=== PATIENT | female | born 1995 | race African-American/Black ===

== ENCOUNTER 2016-03-15 11:43 | Emergency (ER) | payer SELFPAY ==
[2016-03-15 14:15] LABS: APPEARANCE,URINE CLEAR; BILIRUBIN,URINE NEGATIVE (NEGATIVE); GLUCOSE, URINE NEGATIVE (NEGATIVE); KETONES,URINE NEGATIVE (NEGATIVE); LEUKOCYTE ESTERASE,URINE NEGATIVE (NEGATIVE); NITRITE,URINE NEGATIVE (NEGATIVE); PROTEIN,URINE NEGATIVE (NEGATIVE); URINE SPECIFIC GRAVITY 1.021; UROBILINOGEN,URINE NEGATIVE mg/dL (<2.0)
[2016-03-15] MEDS ORDERED: PREDNISONE 20 MG TABLET PO ONE (14:37)
--- NOTE | 2016-03-15 15:55 | ER Document Report ---
ED General - General Chief Complaint: Sore Throat Stated Complaint: SORE THROAT TRAVEL OUTSIDE OF THE [place] IN LAST 30 DAYS: No - HPI Patient complains to provider of: sore throat vaginal discharge Notes: Patient coming in with sore throat vaginal discharge lower [place] pain ongoing for the last 34 days. Patient states she is 59 active in a monogamous relationship. Patient denies fevers chills nausea vomiting diarrhea. Patient states recently diagnosed with endometriosis. Patient denies any urinary symptoms. - Related Data Allergies/Adverse Reactions: ciprofloxacin [From Cipro] Allergy (Verified 03/15/16 12:23) Hives ciprofloxacin HCl [From Cipro] Allergy (Verified 03/15/16 12:23) Hives metoclopramide HCl [From Reglan] Allergy (Verified 03/15/16 12:23) anxious prochlorperazine edisylate [From Compazine] Allergy (Verified 03/15/16 12:23) prochlorperazine maleate [From Compazine] Allergy (Verified 03/15/16 12:23) Past Medical History - Social History Smoking Status: Unknown if Ever Smoked Chew tobacco use (# tins/day): No Frequency of alcohol use: None Drug Abuse: None Family History: CAD - mother, enlarged heart, CVA, DM, Hyperlipidemia, Hypertension - mother, Other - p. aunt recently passed from [place] at 45 years old, father with kidney problems Patient has suicidal ideation: No Patient has homicidal ideation: No - Past Medical History Cardiac Medical History: Denies: Hx Heart Attack, Hx Hypertension Pulmonary Medical History: Reports: Hx Asthma - ON INHALER, USES ABOUT ONCE A MONTH Neurological Medical History: Reports: Hx Migraine. Denies: Hx Cerebrovascular Accident, Hx Seizures Renal/ Medical History: Reports: Hx Ovarian Cysts. Denies: Hx Ectopic , Hx Peritoneal Dialysis, Hx Pelvic Inflammatory Disease GI Medical History: Denies: Hx Hepatitis, Hx Hiatal Hernia, Hx Ulcer Infectious Medical History: Denies: Hx Hepatitis Past Surgical History: Reports: Hx Gynecologic Surgery - Laparoscopic surgery for diagnosis of endometriosis. Denies: Hx Hysterectomy, Hx Mastectomy, Hx Open Heart Surgery, Hx Pacemaker - Immunizations Immunizations up to date: Yes Hx Diphtheria, Pertussis, Tetanus Vaccination: Yes Review of Systems - Review of Systems Constitutional: No symptoms reported EENT: Throat pain Cardiovascular: No symptoms reported Respiratory: No symptoms reported Gastrointestinal: No symptoms reported Genitourinary: No symptoms reported Female Genitourinary: Vaginal discharge Musculoskeletal: No symptoms reported Skin: No symptoms reported Hematologic/Lymphatic: No symptoms reported Neurological/Psychological: No symptoms reported -: Yes All other systems reviewed and negative Physical Exam - Vital signs Vitals: Temp Pulse Resp BP Pulse Ox 98.4 F 81 14 116/68 98 03/15/16 11:51 03/15/16 11:51 03/15/16 11:51 03/15/16 11:51 03/15/16 11:51 Interpretation: Normal - General General appearance: Appears well, Alert - HEENT Head: Normocephalic, Atraumatic Eyes: Normal Pupils: PERRL - Respiratory Respiratory status: No respiratory distress Chest status: Nontender Breath sounds: Normal Chest palpation: Normal - Cardiovascular Rhythm: Regular Heart sounds: Normal auscultation Murmur: No - Abdominal Inspection: Normal Distension: No distension Bowel sounds: Normal Tenderness: Nontender Organomegaly: No organomegaly - Genitourinary External exam: Normal Speculum exam: Vaginal discharge - Mild white discharge Bimanuel exam: Normal - Back Back: Normal, Nontender - Extremities General upper extremity: Normal inspection, Nontender, Normal color, Normal ROM , Normal temperature General lower extremity: Normal inspection, Nontender, Normal color, Normal ROM , Normal temperature, Normal weight bearing. No: Dasia's sign - Neurological Neuro grossly intact: Yes Cognition: Normal Orientation: AAOx4 Deyvi Coma Scale Eye Opening: Spontaneous [place] Coma Scale Verbal: Oriented [place] Coma Scale Motor: Obeys Commands [place] Coma Scale Total: 15 Speech: Normal Motor strength normal: LUE, RUE, LLE, RLE Sensory: Normal - Psychological Associated symptoms: Normal affect, Normal mood - Skin Skin Temperature: Warm Skin Moisture: Dry Skin Color: Normal Course - Re-evaluation Re-evalutation: 03/15/16 15:56 Patient's laboratory studies showed signs of bacterial vaginosis. Otherwise lab work negative for signs of infection discussed treatment for gonorrhea and Chlamydia patient states she would rather wait for results to return no treatment for gonorrhea and Chlamydia was given to the patient. Patient will be discharged home with [facility] told to follow-up her primary care physician Strep is negative patient will be treated with steroids - Vital Signs Vital signs: Temp Pulse Resp BP Pulse Ox 98.4 F 81 14 116/68 98 03/15/16 11:51 03/15/16 11:51 03/15/16 11:51 03/15/16 11:51 03/15/16 11:51 Discharge - Discharge Clinical Impression: Sore throat, BV (bacterial vaginosis) Condition: Good Disposition: HOME, SELF-CARE Instructions: Sore Throat ([facility]), Vaginosis, Bacterial ([facility]), Abdominal Pain ( [facility]) Additional Instructions: Please take medications as prescribed. Please follow-up with your MEMBERSHIP COUNSELOR or primary care physician. Return to the ER symptoms worsen. You may take Tylenol and Motrin for your pain. Prescriptions: Ibuprofen [Motrin 600 Mg Tablet] 600 mg PO TID #30 tablet Metronidazole [Metrogel 0.75% Vaginal Gel] 1 applic PV DAILY 5 Days Forms: Return to Work
[2016-03-15 16:08] LABS: CHLAM PCR NOT DETECTED (NOT DETECT)
--- NOTE | 2016-03-15 16:08 | ER Document Report ---
ED General - General Chief Complaint: Sore Throat Stated Complaint: SORE THROAT TRAVEL OUTSIDE OF THE [place] IN LAST 30 DAYS: No - Related Data Allergies/Adverse Reactions: ciprofloxacin [From Cipro] Allergy (Verified 03/15/16 12:23) Hives ciprofloxacin HCl [From Cipro] Allergy (Verified 03/15/16 12:23) Hives metoclopramide HCl [From Reglan] Allergy (Verified 03/15/16 12:23) anxious prochlorperazine edisylate [From Compazine] Allergy (Verified 03/15/16 12:23) prochlorperazine maleate [From Compazine] Allergy (Verified 03/15/16 12:23) Past Medical History - Social History Smoking Status: Unknown if Ever Smoked Chew tobacco use (# tins/day): No Frequency of alcohol use: None Drug Abuse: None Family History: CAD - mother, enlarged heart, CVA, DM, Hyperlipidemia, Hypertension - mother, Other - p. aunt recently passed from [place] at 45 years old, father with kidney problems Patient has suicidal ideation: No Patient has homicidal ideation: No - Past Medical History Cardiac Medical History: Denies: Hx Heart Attack, Hx Hypertension Pulmonary Medical History: Reports: Hx Asthma - ON INHALER, USES ABOUT ONCE A MONTH Neurological Medical History: Reports: Hx Migraine. Denies: Hx Cerebrovascular Accident, Hx Seizures Renal/ Medical History: Reports: Hx Ovarian Cysts. Denies: Hx Ectopic , Hx Peritoneal Dialysis, Hx Pelvic Inflammatory Disease GI Medical History: Denies: Hx Hepatitis, Hx Hiatal Hernia, Hx Ulcer Infectious Medical History: Denies: Hx Hepatitis Past Surgical History: Reports: Hx Gynecologic Surgery - Laparoscopic surgery for diagnosis of endometriosis. Denies: Hx Hysterectomy, Hx Mastectomy, Hx Open Heart Surgery, Hx Pacemaker - Immunizations Immunizations up to date: Yes Hx Diphtheria, Pertussis, Tetanus Vaccination: Yes Physical Exam - Vital signs Vitals: Temp Pulse Resp BP Pulse Ox 98.4 F 81 14 116/68 98 03/15/16 11:51 03/15/16 11:51 03/15/16 11:51 03/15/16 11:51 03/15/16 11:51 Course - Vital Signs Vital signs: Temp Pulse Resp BP Pulse Ox 97.7 F 56 L 18 101/62 100 03/15/16 16:03 03/15/16 16:03 03/15/16 16:03 03/15/16 16:03 03/15/16 16:03 Discharge - Discharge Clinical Impression: Sore throat, BV (bacterial vaginosis) Condition: Good Disposition: HOME, SELF-CARE Instructions: Abdominal Pain ([facility]), Sore Throat ([facility]), Vaginosis, Bacterial ( [facility]) Additional Instructions: Please take medications as prescribed. Please follow-up with your SCHOOL AGE PROGRAM ASSOCIATE or primary care physician. Return to the ER symptoms worsen. You may take Tylenol and Motrin for your pain. Prescriptions: Ibuprofen [Motrin 600 Mg Tablet] 600 mg PO TID #30 tablet Metronidazole [Metrogel 0.75% Vaginal Gel] 1 applic PV DAILY 5 Days Prednisone [Deltasone 20 mg Tablet] 3 tab PO DAILY 4 Days Forms: Return to Work
[2016-03-15 16:09] VITALS: BP 101/62
== END 2016-03-15 16:09 | disposition home or self-care (01) ==
LOC: ER 11:43
DX: J02.9 Acute pharyngitis, unspecified (principal); N76.0 Acute vaginitis; B96.89 Other specified bacterial agents as the cause of diseases classified elsewhere; Z88.1 Allergy status to other antibiotic agents; Z88.8 Allergy status to other drugs, medicaments and biological substances; J45.909 Unspecified asthma, uncomplicated
CPT/HCPCS: 99283; 87070; 87210; 87880; 81025; 81001; 87491; 87591; J7512

== ENCOUNTER 2016-04-09 00:39 | Emergency (ER) | payer SELFPAY ==
[2016-04-09] MEDS ORDERED: NORMAL SALINE 1000 ML 1,000 ML IV ONE (02:31)
[2016-04-09] MEDS ORDERED: KETOROLAC TROMETHAMINE INJ/PF 30 MG/1 ML SDV IV ONE (02:31)
[2016-04-09] MEDS ORDERED: ONDANSETRON HCL INJ/PF 4 MG/2 ML SDV IV ONE (02:32)
--- NOTE | 2016-04-09 02:33 | ER Document Report ---
ED GI/ - General Chief Complaint: Abdominal Pain Stated Complaint: ABDOMINAL PAIN Notes: Patient is a 21-year-old female that comes emergency department for chief complaint of abdominal pain for 1 week, worsening, she states that now she has worsening pain in her right upper and mid upper abdomen with vomiting yesterday and today, she states that symptoms are worse after eating. She denies blood in vomit, she states she had a nonbloody bowel movement today, she denies fever. Patient denies any abdominal surgeries or daily medications. Past medical history of endometriosis. TRAVEL OUTSIDE OF THE [place] IN LAST 30 DAYS: No - Related Data Allergies/Adverse Reactions: ciprofloxacin [From Cipro] Allergy (Verified 04/09/16 01:44) Hives ciprofloxacin HCl [From Cipro] Allergy (Verified 04/09/16 01:44) Hives metoclopramide HCl [From Reglan] Allergy (Verified 04/09/16 01:44) anxious prochlorperazine edisylate [From Compazine] Allergy (Verified 04/09/16 01:44) prochlorperazine maleate [From Compazine] Allergy (Verified 04/09/16 01:44) Past Medical History - General Information source: Patient - Social History Smoking Status: Never Smoker Frequency of alcohol use: Occasional Drug Abuse: None Lives with: Family Family History: CAD - mother, enlarged heart, CVA, DM, Hyperlipidemia, Hypertension - mother, Other - p. aunt recently passed from [place] at 45 years old, father with kidney problems - Past Medical History Cardiac Medical History: Denies: Hx Heart Attack, Hx Hypertension Pulmonary Medical History: Reports: Hx Asthma - ON INHALER, USES ABOUT ONCE A MONTH Neurological Medical History: Reports: Hx Migraine. Denies: Hx Cerebrovascular Accident, Hx Seizures Renal/ Medical History: Reports: Hx Ovarian Cysts. Denies: Hx Ectopic , Hx Peritoneal Dialysis, Hx Pelvic Inflammatory Disease GI Medical History: Denies: Hx Hepatitis, Hx Hiatal Hernia, Hx Ulcer Infectious Medical History: Denies: Hx Hepatitis Past Surgical History: Reports: Hx Gynecologic Surgery - Laparoscopic surgery for diagnosis of endometriosis. Denies: Hx Hysterectomy, Hx Mastectomy, Hx Open Heart Surgery, Hx Pacemaker - Immunizations Immunizations up to date: Yes Hx Diphtheria, Pertussis, Tetanus Vaccination: Yes Review of Systems - Review of Systems Constitutional: See HPI EENT: No symptoms reported Cardiovascular: No symptoms reported Respiratory: No symptoms reported Gastrointestinal: See HPI Genitourinary: No symptoms reported Female Genitourinary: No symptoms reported Musculoskeletal: No symptoms reported Skin: No symptoms reported Hematologic/Lymphatic: No symptoms reported Neurological/Psychological: No symptoms reported Physical Exam - Vital signs Vitals: Temp Pulse Resp BP Pulse Ox 97.6 F 69 18 108/72 100 04/09/16 06:18 04/09/16 06:18 04/09/16 06:18 04/09/16 06:18 04/09/16 06:18 Interpretation: Normal - General General appearance: Appears well, Alert In distress: None - HEENT Head: Normocephalic, Atraumatic Eyes: Normal Pupils: PERRL - Respiratory Respiratory status: No respiratory distress Chest status: Nontender Breath sounds: Normal Chest palpation: Normal - Cardiovascular Rhythm: Regular Heart sounds: Normal auscultation Murmur: No - Abdominal Inspection: Normal Distension: No distension Bowel sounds: Normal Tenderness: Tender - Tender in the epigastric area mainly, mild tenderness in the right upper quadrant, left upper quadrant is unremarkable, lower abdomen is unremarkable and nontender Organomegaly: No organomegaly - Back Back: Normal, Nontender. No: Tender - Extremities General upper extremity: Normal inspection, Nontender, Normal color, Normal ROM , Normal temperature General lower extremity: Normal inspection, Nontender, Normal color, Normal ROM , Normal temperature, Normal weight bearing. No: Dasia's sign - Neurological Neuro grossly intact: Yes Cognition: Normal Orientation: AAOx4 Deyvi Coma Scale Eye Opening: Spontaneous Deyvi Coma Scale Verbal: Oriented [place] Coma Scale Motor: Obeys Commands [place] Coma Scale Total: 15 Speech: Normal Cranial nerves: Normal Cerebellar coordination: Normal Motor strength normal: LUE, RUE, LLE, RLE Additional motor exam normals: Equal cut tobacco bulker Sensory: Normal - Psychological Associated symptoms: Normal affect, Normal mood - Skin Skin Temperature: Warm Skin Moisture: Dry Skin Color: Normal Course - Re-evaluation Re-evalutation: Patient does have upper abdominal tenderness mainly in the epigastric area on examination, based reported symptoms and the tenderness ultrasound was performed , however ultrasound is normal, laboratory workup finally obtained although this was initially delayed and shows no concerning abnormalities. There is a lymphocytic shift. Friend at bedside informing me that now there are multiple sick family members at home and now patient's own has vomiting symptoms. Strongly suspect a viral syndrome. Providing with nausea medication , Zantac, discussed follow-up and return precautions. Patient states understanding and agreement. - Vital Signs Vital signs: Temp Pulse Resp BP Pulse Ox 97.6 F 69 18 108/72 100 04/09/16 06:18 04/09/16 06:18 04/09/16 06:18 04/09/16 06:18 04/09/16 06:18 - Laboratory Result Diagrams: 04/09/16 04:20 04/09/16 04:20 Laboratory results interpreted by me: 04/09/16 04/09/16 04:20 04:20 Seg Neuts % (Manual) 21 L Lymphocytes % (Manual) 57 H Abs Lymphs (Manual) 5.2 H AST 42 H Total Protein 8.5 H Discharge - Discharge Clinical Impression: Upper abdominal pain Vomiting Qualifiers: Vomiting type: unspecified Vomiting Intractability: non-intractable Nausea presence: with nausea Qualified Code(s): R11.2 - Nausea with vomiting, unspecified Condition: Stable Disposition: HOME, SELF-CARE Additional Instructions: Workup indicates a viral syndrome, but no other abnormalities are seen. Ultrasound is normal. Take zantac for gastritis as directed, take zofran for nausea, rest, hydrate, start with bland foods (soup, toast, rice, etc) Avoid NSAIDs for now (ibuprofen, aspirin, etc), avoid spicy food or caffeine, avoid alcohol or smoking. Follow-up with primary care. Return to emergency department for any concerning worsening symptoms. Prescriptions: Ondansetron [Zofran Odt 4 mg Tablet] 1 - 2 tab PO Q4H PRN #15 tab.rapdis PRN Reason: For Nausea/Vomiting Ranitidine HCl [Zantac 150 mg Tablet] 150 mg PO BID #30 tablet Referrals: MOJGAN VASQUEZ MD [Primary Care Provider] - Follow up as needed
[2016-04-09 04:52] LABS: APPEARANCE,URINE SLIGHTLY-CLOUDY; BILIRUBIN,URINE NEGATIVE (NEGATIVE); GLUCOSE, URINE NEGATIVE (NEGATIVE); KETONES,URINE NEGATIVE (NEGATIVE); LEUKOCYTE ESTERASE,URINE NEGATIVE (NEGATIVE); NITRITE,URINE NEGATIVE (NEGATIVE); PROTEIN,URINE NEGATIVE (NEGATIVE); URINE SPECIFIC GRAVITY 1.028; UROBILINOGEN,URINE NEGATIVE mg/dL (<2.0)
[2016-04-09 04:56] LABS: ALANINE AMINOTRANSFERASE 38 U/L (9-52); ALBUMIN 4.7 g/dL (3.5-5.0); ALKALINE PHOSPHATASE 81 U/L (38-126); ANION GAP 11 (5-19); ASPARTATE AMINO TRANSFERASE 42 U/L (14-36); BILIRUBIN,TOTAL 0.6 mg/dL (0.2-1.3); BLOOD UREA NITROGEN 12 mg/dL (7-20); CALCIUM 9.9 mg/dL (8.4-10.2); CARBON DIOXIDE 27 mmol/L (22-30); CHLORIDE 103 mmol/L (98-107); CREATININE RESULT 0.73 mg/dL (0.52-1.25); GLUCOSE 88 mg/dL (75-110); POTASSIUM 4.1 mmol/L (3.6-5.0); SODIUM 141.2 mmol/L (137-145); TOTAL PROTEIN 8.5 g/dL (6.3-8.2)
[2016-04-09 05:16] LABS: HEMATOCRIT 38.7 % (36.0-47.0); HGB HCT DIFFERENCE 0.3; MEAN CORPUSCULAR HEMOGLOBIN 29.6 pg (27.0-33.4); MEAN CORPUSCULAR HGB CONC 33.5 g/dL (32.0-36.0); MEAN CORPUSCULAR VOLUME 88 fl (80-97); RED BLOOD COUNT 4.37 10^6/uL (3.72-5.28); RED CELL DISTRIBUTION WIDTH 13.6 % (11.5-14.0); WHITE BLOOD COUNT 7.8 10^3/uL (4.0-10.5)
[2016-04-09 05:20] LABS: BAND NEUTROPHILS % (MANUAL) 3 % (3-5); BASOPHILS % (MANUAL) 1 % (0-2); EOSINOPHILS % (MANUAL) 1 % (0-6); LYMPHOCYTES % (MANUAL) 57 % (13-45); TOTAL CELLS COUNTED 100
[2016-04-09 05:21] LABS: OVALOCYTES SLIGHT; POIKILOCYTOSIS SLIGHT; TOXIC GRANULATION SLIGHT
[2016-04-09] MEDS ORDERED: FAMOTIDINE 20 MG TABLET PO ONE (05:38)
[2016-04-09 06:19] VITALS: BP 108/72
== END 2016-04-09 06:19 | disposition home or self-care (01) ==
LOC: ER 00:39
DX: R10.11 Right upper quadrant pain (principal); R11.2 Nausea with vomiting, unspecified; R10.9 Unspecified abdominal pain
CPT/HCPCS: 99284; 36415; 83690; 85025; 81025; 80053; 81001; 76705; J1885; J2405; J7030

== ENCOUNTER 2016-05-17 08:26 | Emergency (ER) | payer SELFPAY ==
--- NOTE | 2016-05-17 09:49 | ER Document Report ---
ED Respiratory Problem - General Chief Complaint: Sore Throat Stated Complaint: THROAT PAIN Mode of Arrival: Ambulatory Information source: Patient TRAVEL OUTSIDE OF THE [place] IN LAST 30 DAYS: No - HPI Patient complains to provider of: Cough Context: Hx asthma. denies: DVT, Factor V Leiden, Hx CHF, Hx COPD, Malignancy, Cough: Nonproductive Associated symptoms: Congestion, Runny nose, Wheezing. denies: Fever, Headache , Heart racing, Hurts to breathe, Leg/calf/joint pain, Muscle spasms, Sinus pain /pressure Notes: Patient also complains of nasal congestion, cough, throat irritation occasional wheezing for the last 2 weeks. The patient has a history of asthma, but states that she has not had her albuterol inhaler to use. She denies fevers. She states that she has vomited a few times. She denies any abdominal pain. She denies any chest pain or difficulty breathing at this time. No unilateral numbness tingling or weakness. Sister was being seen for the same complaints earlier this morning. Nothing seems to make her symptoms better or worse. - Related Data Allergies/Adverse Reactions: ciprofloxacin [From Cipro] Allergy (Verified 05/17/16 08:30) Hives ciprofloxacin HCl [From Cipro] Allergy (Verified 05/17/16 08:30) Hives metoclopramide HCl [From Reglan] Allergy (Verified 05/17/16 08:30) anxious prochlorperazine edisylate [From Compazine] Allergy (Verified 05/17/16 08:30) prochlorperazine maleate [From Compazine] Allergy (Verified 05/17/16 08:30) Past Medical History - Social History Smoking Status: Unknown if Ever Smoked Family History: CAD - mother, enlarged heart, CVA, DM, Hyperlipidemia, Hypertension - mother, Other - p. aunt recently passed from [place] at 45 years old, father with kidney problems Patient has suicidal ideation: No Patient has homicidal ideation: No - Past Medical History Cardiac Medical History: Denies: Hx Heart Attack, Hx Hypertension Pulmonary Medical History: Reports: Hx Asthma - ON INHALER, USES ABOUT ONCE A MONTH Neurological Medical History: Reports: Hx Migraine. Denies: Hx Cerebrovascular Accident, Hx Seizures Renal/ Medical History: Reports: Hx Ovarian Cysts. Denies: Hx Ectopic , Hx Peritoneal Dialysis, Hx Pelvic Inflammatory Disease GI Medical History: Denies: Hx Hepatitis, Hx Hiatal Hernia, Hx Ulcer Infectious Medical History: Denies: Hx Hepatitis Past Surgical History: Reports: Hx Gynecologic Surgery - Laparoscopic surgery for diagnosis of endometriosis. Denies: Hx Hysterectomy, Hx Mastectomy, Hx Open Heart Surgery, Hx Pacemaker - Immunizations Immunizations up to date: Yes Hx Diphtheria, Pertussis, Tetanus Vaccination: Yes Review of Systems - Review of Systems -: Yes All other systems reviewed and negative Physical Exam - Vital signs Vitals: Temp Pulse Resp BP Pulse Ox 97.9 F 72 16 119/73 98 05/17/16 08:31 05/17/16 08:31 05/17/16 08:31 05/17/16 08:31 05/17/16 08:31 - General General appearance: Appears well, Alert - HEENT Head: Normocephalic, Atraumatic Eyes: Normal Conjunctiva: Normal Pupils: PERRL Ears: Normal External canal: Normal Tympanic membrane: Normal Sinus: Normal Nasal: Normal Mouth/Lips: Normal Mucous membranes: Normal Pharynx: Normal Neck: Normal - Respiratory Respiratory status: No respiratory distress Breath sounds: Normal. No: Rhonchi, Stridor, Wheezing - Cardiovascular Rhythm: Regular Heart sounds: Normal auscultation Murmur: No - Back Back: Normal, Nontender - Extremities General upper extremity: Normal inspection, Nontender, Normal color, Normal ROM , Normal temperature General lower extremity: Normal inspection, Nontender, Normal color, Normal ROM , Normal temperature, Normal weight bearing. No: Dasia's sign - Neurological Neuro grossly intact: Yes Cognition: Normal Orientation: AAOx4 Deyvi Coma Scale Eye Opening: Spontaneous Deyvi Coma Scale Verbal: Oriented Deyvi Coma Scale Motor: Obeys Commands Deyvi Coma Scale Total: 15 Speech: Normal Motor strength normal: LUE, RUE, LLE, RLE Sensory: Normal - Psychological Associated symptoms: Normal affect, Normal mood - Skin Skin Temperature: Warm Skin Moisture: Dry Skin Color: Normal Course - Re-evaluation Re-evalutation: 05/17/16 10:36 Patient's nontoxic. Stable vitals. Patient's had URI symptoms for approximately 2 weeks. No signs of sinusitis. Chest x-ray is clear. Patient has a history of asthma and is out of her inhaler. Currently her Medicaid is not active. Patient will be given albuterol inhaler from the emergency department having case she needs it. I will also discharge her home with prescriptions for albuterol inhaler, Tessalon, Flonase. Follow up if she is not improving in the next week, sooner for increased symptoms, difficult breathing, high fever, or any further concerns. The patient is noted to have elevated blood pressure during today's emergency department visit. The patient was informed of this finding. The patient was instructed that this may be related to pre-hypertension and requires further evaluation with a primary care provider. The patient has no hypertensive symptoms at this time. The patient's emergency department workup and current diagnosis were explained to the patient and or family. Follow-up instructions were provided. Medications if prescribed were discussed. Instructions for when to return to the emergency department including specific worrisome symptoms were discussed with the patient and/or family. - Vital Signs Vital signs: Temp Pulse Resp BP Pulse Ox 97.9 F 72 16 119/73 98 05/17/16 08:31 05/17/16 08:31 05/17/16 08:31 05/17/16 08:31 05/17/16 08:31 - Diagnostic Test Radiology reviewed: Image reviewed, Reports reviewed - Negative chest Discharge - Discharge Clinical Impression: URI (upper respiratory infection) Qualifiers: URI type: unspecified URI Qualified Code(s): J06.9 - Acute upper respiratory infection, unspecified Condition: Stable Disposition: HOME, SELF-CARE Instructions: Upper Respiratory Illness ([facility]) Additional Instructions: Take medications as prescribed. Follow-up with your doctor if not better in one week, sooner for worsening symptoms or any further concerns. Your blood pressure was elevated during today's visit. Have this rechecked with your doctor. Prescriptions: Benzonatate [Tessalon Perle 100 mg Capsule] 100 mg PO Q8HP PRN #20 cap PRN Reason: Albuterol Sulfate [Proair HFA Inhalation Aerosol 8.5 gm MDI] 2 puff IH Q4 PRN # 1 mdi PRN Reason: Fluticasone Propionate [Flonase Nasal Dorset 50 Mcg/Dorset 16 gm] 2 sprays NASL Q12 #1 inhaler Loratadine [Claritin 10 mg Tablet] 10 mg PO DAILY #30 tablet Forms: Elevated Blood Pressure, Return to Work
[2016-05-17] MEDS ORDERED: ALBUTEROL SULFATE HFA (90 MCG/PUFF) 8 GM MDI (1 MDI/ER DISP) IH ONE (10:35)
[2016-05-17 10:57] VITALS: BP 105/79
== END 2016-05-17 10:57 | disposition home or self-care (01) ==
LOC: ER 08:26
DX: J06.9 Acute upper respiratory infection, unspecified (principal); J02.9 Acute pharyngitis, unspecified; R05 Cough; R09.81 Nasal congestion; R09.89 Other specified symptoms and signs involving the circulatory and respiratory systems; R11.10 Vomiting, unspecified
CPT/HCPCS: 99283; 71020; J3490

== ENCOUNTER 2017-01-20 09:33 | Emergency (ER) | payer SELFPAY ==
[2017-01-20 09:45] VITALS: BP 125/75
[2017-01-20] MEDS ORDERED: TRAMADOL HCL 50 MG TABLET PO ONE (09:55)
--- NOTE | 2017-01-20 10:00 | ER Document Report ---
ED General - General Chief Complaint: Abdominal Pain Stated Complaint: ABDOMINAL PAIN Time Seen by Provider: 01/20/17 09:51 Notes: 21-year-old female past medical history endometriosis for the last several years here with complaints of "an endometriosis flare" ongoing for the past 3 days. She endorses lower abdominal cramping, pain, and swelling. She states that these are the typical symptoms she has with her endometriosis flares. Nothing makes the symptoms worse. Nothing makes the symptoms better. She has tried Tylenol with minimal relief. She has not seen an INSECT CONTROL AIDE in quite some time and cannot tell me why. She denies fevers chills nausea vomiting vaginal bleeding discharge. TRAVEL OUTSIDE OF THE [place] IN LAST 30 DAYS: No - Related Data Allergies/Adverse Reactions: ciprofloxacin [From Cipro] Allergy (Verified 01/20/17 09:35) Hives ciprofloxacin HCl [From Cipro] Allergy (Verified 01/20/17 09:35) Hives metoclopramide HCl [From Reglan] Allergy (Verified 01/20/17 09:35) anxious prochlorperazine edisylate [From Compazine] Allergy (Verified 01/20/17 09:35) prochlorperazine maleate [From Compazine] Allergy (Verified 01/20/17 09:35) Past Medical History - Social History Smoking Status: Never Smoker Frequency of alcohol use: None Drug Abuse: None Family History: CAD - mother, enlarged heart, CVA, DM, Hyperlipidemia, Hypertension - mother, Other - p. aunt recently passed from [place] at 45 years old, father with kidney problems Patient has suicidal ideation: No Patient has homicidal ideation: No - Past Medical History Cardiac Medical History: Denies: Hx Heart Attack, Hx Hypertension Pulmonary Medical History: Reports: Hx Asthma - ON INHALER, USES ABOUT ONCE A MONTH Neurological Medical History: Reports: Hx Migraine. Denies: Hx Cerebrovascular Accident, Hx Seizures Renal/ Medical History: Reports: Hx Ovarian Cysts. Denies: Hx Ectopic , Hx Peritoneal Dialysis, Hx Pelvic Inflammatory Disease GI Medical History: Denies: Hx Hepatitis, Hx Hiatal Hernia, Hx Ulcer Infectious Medical History: Denies: Hx Hepatitis Past Surgical History: Reports: Hx Gynecologic Surgery - Laparoscopic surgery for diagnosis of endometriosis. Denies: Hx Hysterectomy, Hx Mastectomy, Hx Open Heart Surgery, Hx Pacemaker - Immunizations Immunizations up to date: Yes Hx Diphtheria, Pertussis, Tetanus Vaccination: Yes Review of Systems - Review of Systems Notes: See history of present illness for pertinent positive review of systems; otherwise all review of systems have been reviewed and are negative Physical Exam - Vital signs Vitals: Temp Pulse Resp BP Pulse Ox 98.8 F 106 H 16 125/75 98 01/20/17 09:39 01/20/17 09:39 01/20/17 09:39 01/20/17 09:39 01/20/17 09:39 - Notes Notes: PHYSICAL EXAMINATION: GENERAL: Well-appearing and in no acute distress. HEAD: Atraumatic, normocephalic. EYES: Pupils equal round and reactive to light, extraocular movements intact, sclera anicteric, conjunctiva are normal. ENT: nares patent. Moist mucous membranes. NECK: Normal range of motion, supple without lymphadenopathy LUNGS: CTAB and equal. No wheezes rales or rhonchi. HEART: Minimally tachycardic rate, low 100s (likely secondary to pain), and regular rhythm without murmurs ABDOMEN: Soft, minimal suprapubic tenderness. No guarding, no rebound or any other peritoneal signs. EXTREMITIES: Normal range of motion, no pitting edema. No cyanosis. NEUROLOGICAL: Cranial nerves grossly intact. Normal sensory/motor exams. PSYCH: Normal mood, normal affect. SKIN: Warm, Dry, normal turgor, no rashes or lesions noted Course - Re-evaluation Re-evalutation: 01/20/17 09:59 MEDICAL DECISION MAKING: Concern for typical endometriosis flare versus UTI versus ectopic Will give a dose of tramadol and check urinalysis/ test Patient understands and agrees to the plan of care 01/20/17 10:54 UA negative and UPT neg DC home w tramadol rx - Vital Signs Vital signs: Temp Pulse Resp BP Pulse Ox 98.8 F 106 H 16 125/75 98 01/20/17 09:39 01/20/17 09:39 01/20/17 09:39 01/20/17 09:39 01/20/17 09:39 Discharge - Discharge Clinical Impression: Suprapubic abdominal pain Condition: Good Disposition: HOME, SELF-CARE Instructions: Oral Narcotic Medication ([facility]) Additional Instructions: You were seen in the emergency department at [facility]. If you were given any sedating medications, be sure not to operate heavy machinery ( example - driving) and be sure you are not too sedated to walk appropriately. Please followup with your primary physician in the next few days for further management/evaluation. Please return to the emergency department for worsening of symptoms or any symptom that you deem to be concerning or life-threatening. Thank you for allowing us to be part of your care. Prescriptions: Tramadol HCl [Ultram 50 mg Tablet] 50 mg PO Q6HP PRN #14 tablet PRN Reason:
[2017-01-20 10:25] LABS: APPEARANCE,URINE CLEAR; BILIRUBIN,URINE NEGATIVE (NEGATIVE); GLUCOSE, URINE NEGATIVE (NEGATIVE); KETONES,URINE NEGATIVE (NEGATIVE); LEUKOCYTE ESTERASE,URINE NEGATIVE (NEGATIVE); NITRITE,URINE NEGATIVE (NEGATIVE); PROTEIN,URINE NEGATIVE (NEGATIVE); URINE SPECIFIC GRAVITY 1.029; UROBILINOGEN,URINE NEGATIVE mg/dL (<2.0)
== END 2017-01-20 10:58 | disposition home or self-care (01) ==
LOC: ER 09:33
DX: R10.2 Pelvic and perineal pain (principal); R10.30 Lower abdominal pain, unspecified; Z88.3 Allergy status to other anti-infective agents
CPT/HCPCS: 81001; 81025; 99284

== ENCOUNTER 2017-01-26 15:16 | Emergency (ER) | payer SELFPAY ==
--- NOTE | 2017-01-26 15:36 | ER Document Report ---
ED Medical Screen (RME) - General Chief Complaint: Lower Abdominal Pain Stated Complaint: STOMACH PAIN Time Seen by Provider: 01/26/17 15:35 Notes: Patient presents with abdominal pain and vaginal discharge. TRAVEL OUTSIDE OF THE [place] IN LAST 30 DAYS: No - Related Data Allergies/Adverse Reactions: ciprofloxacin [From Cipro] Allergy (Verified 01/26/17 15:18) Hives ciprofloxacin HCl [From Cipro] Allergy (Verified 01/26/17 15:18) Hives metoclopramide HCl [From Reglan] Allergy (Verified 01/26/17 15:18) anxious prochlorperazine edisylate [From Compazine] Allergy (Verified 01/26/17 15:18) prochlorperazine maleate [From Compazine] Allergy (Verified 01/26/17 15:18) Past Medical History - Social History Chew tobacco use (# tins/day): No Frequency of alcohol use: None Drug Abuse: None - Past Medical History Cardiac Medical History: Denies: Hx Heart Attack, Hx Hypertension Pulmonary Medical History: Reports: Hx Asthma - ON INHALER, USES ABOUT ONCE A MONTH Neurological Medical History: Reports: Hx Migraine. Denies: Hx Cerebrovascular Accident, Hx Seizures Renal/ Medical History: Reports: Hx Ovarian Cysts. Denies: Hx Ectopic , Hx Peritoneal Dialysis, Hx Pelvic Inflammatory Disease GI Medical History: Denies: Hx Hepatitis, Hx Hiatal Hernia, Hx Ulcer Infectious Medical History: Denies: Hx Hepatitis Past Surgical History: Reports: Hx Gynecologic Surgery - Laparoscopic surgery for diagnosis of endometriosis. Denies: Hx Hysterectomy, Hx Mastectomy, Hx Open Heart Surgery, Hx Pacemaker - Immunizations Immunizations up to date: Yes Hx Diphtheria, Pertussis, Tetanus Vaccination: Yes Physical Exam - Vital signs Vitals: Temp Pulse Resp BP Pulse Ox 98.4 F 86 16 131/78 H 99 01/26/17 15:28 01/26/17 15:28 01/26/17 15:28 01/26/17 15:28 01/26/17 15:28 Course - Vital Signs Vital signs: Temp Pulse Resp BP Pulse Ox 98.4 F 86 16 131/78 H 99 01/26/17 15:28 01/26/17 15:28 01/26/17 15:28 01/26/17 15:28 01/26/17 15:28
--- NOTE | 2017-01-26 15:42 | ER Document Report ---
ED General - General Chief Complaint: Lower Abdominal Pain Stated Complaint: STOMACH PAIN Time Seen by Provider: 01/26/17 15:35 Mode of Arrival: Ambulatory Information source: Patient Notes: Patient is a 21-year-old female presents with one-week history of vaginal discharge and lower abdominal pain. She states that she has had a history of endometriosis but this pain is more cramping in nature. She states her LMP was 2 months ago, she is not completely sure. She denies any fever, chills, nausea, vomiting, diarrhea, vaginal bleeding. She endorses unprotected sex with one partner. TRAVEL OUTSIDE OF THE [place] IN LAST 30 DAYS: No - Related Data Allergies/Adverse Reactions: ciprofloxacin [From Cipro] Allergy (Verified 01/26/17 15:18) Hives ciprofloxacin HCl [From Cipro] Allergy (Verified 01/26/17 15:18) Hives metoclopramide HCl [From Reglan] Allergy (Verified 01/26/17 15:18) anxious prochlorperazine edisylate [From Compazine] Allergy (Verified 01/26/17 15:18) prochlorperazine maleate [From Compazine] Allergy (Verified 01/26/17 15:18) Past Medical History - General Information source: Patient - Social History Smoking Status: Never Smoker Chew tobacco use (# tins/day): No Frequency of alcohol use: None Drug Abuse: None Family History: CAD - mother, enlarged heart, CVA, DM, Hyperlipidemia, Hypertension - mother, Other - p. aunt recently passed from [place] at 45 years old, father with kidney problems Patient has suicidal ideation: No Patient has homicidal ideation: No - Past Medical History Cardiac Medical History: Denies: Hx Heart Attack, Hx Hypertension Pulmonary Medical History: Reports: Hx Asthma - ON INHALER, USES ABOUT ONCE A MONTH Neurological Medical History: Reports: Hx Migraine. Denies: Hx Cerebrovascular Accident, Hx Seizures Renal/ Medical History: Reports: Hx Ovarian Cysts. Denies: Hx Ectopic , Hx Peritoneal Dialysis, Hx Pelvic Inflammatory Disease GI Medical History: Denies: Hx Hepatitis, Hx Hiatal Hernia, Hx Ulcer Infectious Medical History: Denies: Hx Hepatitis Past Surgical History: Reports: Hx Gynecologic Surgery - Laparoscopic surgery for diagnosis of endometriosis. Denies: Hx Hysterectomy, Hx Mastectomy, Hx Open Heart Surgery, Hx Pacemaker - Immunizations Immunizations up to date: Yes Hx Diphtheria, Pertussis, Tetanus Vaccination: Yes Review of Systems - Review of Systems Constitutional: See HPI EENT: No symptoms reported Cardiovascular: No symptoms reported Respiratory: No symptoms reported Gastrointestinal: No symptoms reported Genitourinary: See HPI Female Genitourinary: See HPI Musculoskeletal: No symptoms reported Skin: No symptoms reported Hematologic/Lymphatic: No symptoms reported Neurological/Psychological: No symptoms reported Physical Exam - Vital signs Vitals: Temp Pulse Resp BP Pulse Ox 98.4 F 86 16 131/78 H 99 01/26/17 15:28 01/26/17 15:28 01/26/17 15:28 01/26/17 15:28 01/26/17 15:28 - Notes Notes: PHYSICAL EXAM: CONSTITUTIONAL: Alert and oriented, well-appearing and in no acute distress. HENT: Normocephalic, atraumatic. Trachea midline. Uvula midline. Moist mucous membranes. EYES: Pupils equal round and reactive to light, EOM intact. Sclera anicteric, conjunctiva are normal. No entrapment. HEART: Regular rate and rhythm without murmurs. LUNGS: CTAB and equal. No wheezes, rales or rhonchi. GI: Normactive bowel sounds. TTP in suprapubic region, non-distended. No organomegaly. no CVAT. TORPEDO SPECIALIST: External exam normal. No rashes or lesions.Thick white vaginal discharge, no vaginal bleeding. Cervix without lesions. No cervical motion tenderness. BACK: nontender, no paraspinous spasm, 5+/5 strengths, DTRs 2+, SLR -. EXTREMITIES: Normal range of motion, no pitting edema. No cyanosis. Cap Refill < 3 seconds. NEURO: Cranial nerves grossly intact. Normal sensory/motor exams. PSYCH: Normal mood, normal affect. SKIN: Warm and dry. Normal turgor. No rashes or lesions noted. Course - Re-evaluation Re-evalutation: 01/26/17 16:22 patient seen and examined. Patient is afebrile, not tachycardic. She is alert and oriented, nontoxic in appearance and sitting upright on exam table. Pelvic exam shows thick white discharge. Will obtain wet prep/g/c and patient is requesting to be treated for gonorrhea and chlamydia. Will obtain urine and urine test. 01/26/17 17:44 Reviewed labwork - urine negative. UA shows no signs of infection. Wet prep with 4+ bacteria/WBC, no trichomonas. Will treat for gonorrhea and chlamydia before she leaves, discussed culture pending. Will treat also for bacterial vaginosis. At this time, will discharge with return precautions and follow-up recommendations. Verbal discharge instructions given at the bedside and opportunity for questions given. Medication warnings reviewed. Patient is in agreement with this plan and has verbalized understanding of return precautions and the need for primary care follow-up in the next 24-72 hours. - Vital Signs Vital signs: Temp Pulse Resp BP Pulse Ox 98.4 F 86 16 131/78 H 99 01/26/17 15:28 01/26/17 15:28 01/26/17 15:28 01/26/17 15:28 01/26/17 15:28 Procedures - Pelvic Exam Pelvic exam Time completed: 16:20 Cultures obtained: Yes Wet prep obtained: Yes Herpes culture obtained: No POC sent to lab: Yes Foreign body removed: No Bimanual exam performed: Yes Witnessed by: PCT Notes: 01/26/17 16:22 thick white vaginal discharge, no vaginal bleeding Discharge - Discharge Clinical Impression: Bacterial vaginosis, Urinary frequency Condition: Stable Disposition: HOME, SELF-CARE Instructions: Pelvic Inflammatory Disease ([facility]), Vaginosis, Bacterial ([facility]), Antibiotic Therapy ([facility]), Metronidazole ([facility]), [employer] Specialist Doctors Additional Instructions: Take medication as directed. You will be notified in 1-2 days concerning your culture results for gonorrhea and chlamydia. If you are positive you will need to notify your partners so they can be treated. Follow-up with your primary care doctor in 1-2 days. Return if symptoms worsen. Prescriptions: Metronidazole [Flagyl 500 mg Tablet] 500 mg PO Q6H #28 tablet Forms: Elevated Blood Pressure
[2017-01-26] MEDS ORDERED: CEFTRIAXONE INJ 250 MG VIAL IM ONE (16:26)
[2017-01-26] MEDS ORDERED: LIDOCAINE 1% INJ-PF (10 MG/ML) 30 ML SDV INFIL ONE (16:26)
[2017-01-26] MEDS ORDERED: AZITHROMYCIN 1 GM SUSP PACKET PO ONE (16:26)
[2017-01-26 17:38] LABS: APPEARANCE,URINE SLIGHTLY-CLOUDY; BILIRUBIN,URINE NEGATIVE (NEGATIVE); GLUCOSE, URINE NEGATIVE (NEGATIVE); KETONES,URINE NEGATIVE (NEGATIVE); LEUKOCYTE ESTERASE,URINE NEGATIVE (NEGATIVE); NITRITE,URINE NEGATIVE (NEGATIVE); PROTEIN,URINE NEGATIVE (NEGATIVE); URINE SPECIFIC GRAVITY 1.031; UROBILINOGEN,URINE NEGATIVE mg/dL (<2.0)
[2017-01-26 18:23] VITALS: BP 118/79
== END 2017-01-26 18:24 | disposition home or self-care (01) ==
LOC: ER 15:16
DX: N76.0 Acute vaginitis (principal); B96.89 Other specified bacterial agents as the cause of diseases classified elsewhere; R10.30 Lower abdominal pain, unspecified; R35.0 Frequency of micturition; J45.909 Unspecified asthma, uncomplicated; Z87.42 Personal history of other diseases of the female genital tract; Z98.890 Other specified postprocedural states; Z88.1 Allergy status to other antibiotic agents; Z88.8 Allergy status to other drugs, medicaments and biological substances
CPT/HCPCS: 99284; 96372; 87210; 81025; 81001; 87491; 87591; J3490; Q0144; J0696

== ENCOUNTER 2017-03-11 14:28 | Emergency (ER) | payer SELFPAY ==
[2017-03-11] MEDS ORDERED: ASPIRIN 81 MG TABLET, CHEWABLE PO ONE (15:06)
--- NOTE | 2017-03-11 15:12 | ER Document Report ---
ED General - General Chief Complaint: Chest Pain Stated Complaint: CHEST PAIN Time Seen by Provider: 03/11/17 14:56 Mode of Arrival: Ambulatory Information source: Patient Notes: 22-year-old female presented to ED for complaint of chest pain 5 days. She states she is having cough and runny nose no indigestion or nausea and vomiting. She states she does have a history of endometriosis. She states both her mother and her father both have had heart attacks. Patient denies any history of previous chest pain any blood pressure cholesterol or any other cardiac history. Patient states she has not been hit does not have any tenderness to the chest when palpated. She states she has been having some gas pain off and on at times. TRAVEL OUTSIDE OF THE [place] IN LAST 30 DAYS: No - HPI Onset: Last week Onset/Duration: Intermittent Quality of pain: Achy, Sharp Severity: Moderate Pain Level: 2 Associated symptoms: Chest pain. denies: Body/muscle aches, Chills, Nonproductive cough, Productive cough, Diarrhea, Fever, Nausea, Vomiting, Rhinnorhea, Sinus pain/drainage, Shortness of breath, Slow to respond, Sore throat Exacerbated by: Movement Relieved by: Denies Similar symptoms previously: No Recently seen / treated by doctor: No - Related Data Allergies/Adverse Reactions: ciprofloxacin [From Cipro] Allergy (Verified 01/26/17 15:18) Hives ciprofloxacin HCl [From Cipro] Allergy (Verified 01/26/17 15:18) Hives metoclopramide HCl [From Reglan] Allergy (Verified 01/26/17 15:18) anxious prochlorperazine edisylate [From Compazine] Allergy (Verified 01/26/17 15:18) prochlorperazine maleate [From Compazine] Allergy (Verified 01/26/17 15:18) Past Medical History - General Information source: Patient - Social History Smoking Status: Never Smoker Cigarette use (# per day): No Chew tobacco use (# tins/day): No Smoking Education Provided: No Frequency of alcohol use: None Drug Abuse: None Lives with: Family Family History: CAD - mother, enlarged heart; father states his cardiac history started after his dialysis, CVA, DM, Hyperlipidemia, Hypertension - mother, Other - p. aunt recently passed from [place] at 45 years old, father with kidney problems Patient has suicidal ideation: No Patient has homicidal ideation: No - Past Medical History Cardiac Medical History: Reports: None Pulmonary Medical History: Reports: Hx Asthma - ON INHALER, USES ABOUT ONCE A MONTH EENT Medical History: Reports: None Neurological Medical History: Reports: Hx Migraine Endocrine Medical History: Reports: None Renal/ Medical History: Reports: Hx Ovarian Cysts Malignancy Medical History: Reports: Other - Endometriosis GI Medical History: Reports: Hx Gastritis Musculoskeltal Medical History: Reports None Skin Medical History: Reports None Psychiatric Medical History: Reports: None Traumatic Medical History: Reports: None Infectious Medical History: Reports: None Past Surgical History: Reports: Hx Gynecologic Surgery - Laparoscopic surgery for diagnosis of endometriosis - Immunizations Immunizations up to date: Yes Hx Diphtheria, Pertussis, Tetanus Vaccination: Yes Review of Systems - Review of Systems Constitutional: No symptoms reported EENT: No symptoms reported Cardiovascular: Chest pain Respiratory: No symptoms reported Gastrointestinal: No symptoms reported Genitourinary: No symptoms reported Female Genitourinary: No symptoms reported Musculoskeletal: No symptoms reported Skin: No symptoms reported Hematologic/Lymphatic: No symptoms reported Neurological/Psychological: No symptoms reported -: Yes All other systems reviewed and negative Physical Exam - Vital signs Vitals: Temp Pulse Resp BP Pulse Ox 98.0 F 76 20 111/72 100 03/11/17 14:45 03/11/17 14:45 03/11/17 14:45 03/11/17 14:45 03/11/17 14:45 Interpretation: Normal - General General appearance: Appears well, Alert - HEENT Head: Normocephalic, Atraumatic Eyes: Normal Pupils: PERRL - Respiratory Respiratory status: No respiratory distress Chest status: Nontender Breath sounds: Normal Chest palpation: Normal - Cardiovascular Rhythm: Regular Heart sounds: Normal auscultation Murmur: No Normal capillary refill: Yes - Abdominal Inspection: Normal Distension: No distension Bowel sounds: Normal Tenderness: Nontender Organomegaly: No organomegaly - Back Back: Normal, Nontender - Extremities General upper extremity: Normal inspection, Nontender, Normal color, Normal ROM , Normal temperature General lower extremity: Normal inspection, Nontender, Normal color, Normal ROM , Normal temperature, Normal weight bearing. No: Dasia's sign - Neurological Neuro grossly intact: Yes Cognition: Normal Orientation: AAOx4 Bl[place] Coma Scale Eye Opening: Spontaneous Deyvi Coma Scale Verbal: Oriented [place] Coma Scale Motor: Obeys Commands Blauvelt Coma Scale Total: 15 Speech: Normal Motor strength normal: LUE, RUE, LLE, RLE Sensory: Normal - Psychological Associated symptoms: Normal affect, Normal mood - Skin Skin Temperature: Warm Skin Moisture: Dry Skin Color: Normal Course - Re-evaluation Re-evalutation: 03/11/17 20:53 Patient had low risk factors for any kind of cardiac disease. All of her labs and chest x-ray were negative for any kind of cardiac problems. Patient was instructed on use of Tylenol Motrin for her discomfort in the follow-up with her primary doctor. - Vital Signs Vital signs: Temp Pulse Resp BP Pulse Ox 98.0 F 76 17 109/79 97 03/11/17 14:45 03/11/17 14:45 03/11/17 17:13 03/11/17 17:13 03/11/17 17:13 - Laboratory Result Diagrams: 03/11/17 15:40 03/11/17 16:30 Laboratory results interpreted by me: 03/11/17 03/11/17 15:40 16:30 Seg Neutrophils % 37.1 L Lymphocytes % 53.2 H Creatine Kinase 147 H - Diagnostic Test Radiology reviewed: Image reviewed, Reports reviewed Discharge - Discharge Clinical Impression: Chest pain Qualifiers: Chest pain type: unspecified Qualified Code(s): R07.9 - Chest pain, unspecified Condition: Stable Disposition: HOME, SELF-CARE Additional Instructions: CHEST PAIN OF UNCLEAR CAUSE: The exact cause of your chest pain isn't clear. Fortunately, there is no evidence of a dangerous medical condition. Further testing may be required to find the source of the pain. Most often, we find that this pain is coming from the chest wall -- the muscles or rib joints in the chest. But chest pain can come from the lung and lung lining, the esophagus, the heart valves or heart lining, and even the stomach or gallbladder. Rest. Eat lightly until the pain is gone. We may prescribe medicine for pain and inflammation. You should call the physician immediately if the pain radiates to the shoulder, jaw or arms; if you start to run a fever or develop a cough; or if you develop shortness of breath, or other new or alarming symptoms. NORMAL EXAM AND WORKUP: At this time, your examination and workup show no significant abnormality. No significant abnormal physical findings were noted. All laboratory, EKG, and imaging (x-ray, CT scans, ultrasound) studies that were ordered show no significant abnormality. Although your examination and all studies that were ordered showed no significant abnormal finding, there are no examinations and no studies that are 100% accurate. There is always the possibility that some abnormality could exist and not be detected with physical examination or within the limits and capabilities of laboratory and other studies. You should return or follow up as you were instructed on your visit today for further evaluation if your symptoms do not resolve. ASPIRIN: Aspirin has been shown to have a beneficial effect on blood circulation by reducing the clotting effect of platelets in the blood. These beneficial effects can be achieved by taking just a single baby (81 mg) aspirin a day. It is recommended that any person over the age of forty take a single baby aspirin every day for heart and brain circulation, unless you are allergic to aspirin or have some significant bleeding disorder. It is strongly recommended that people who have proven cardiac or blood circulation disturbances should take a baby aspirin every day. Acetaminophen Acetaminophen may be taken for pain relief or fever control. It's much safer than aspirin, offering a wider range of "safe" dosages. It is safe during . Some brand names are Tylenol, Panadol, Datril, Anacin 3, Tempra, and Liquiprin. Acetaminophen can be repeated every four hours. The following are maximum recommended dosages: WEIGHT Dose Drops Elixir Chewable( 80mg) (LBS.) drprs=droppers tsp=teaspoon 6 40 mg .4 ml (1/2) 6-11 80 mg .8 ml (full) 1/2 tsp 1 tab 12-16 120 mg 1 1/2 drprs 3/4 tsp 1 1/2 tabs 17-23 160 mg 2 drprs 1 tsp 2 tabs 24-30 240 mg 3 drprs 1 1/2 tsp 3 tabs 30-35 320 mg 2 tsp 4 tabs 36-41 360 mg 2 1/4 tsp 4 1 /2 tabs 42-47 400 mg 2 1/2 tsp 5 tabs 48-53 480 mg 3 tsp 6 tabs 54-59 520 mg 3 1/4 tsp 6 1 /2 tabs 60-64 560 mg 3 1/2 tsp 7 tabs 65-70 600 mg 3 3/4 tsp 7 1 /2 tabs 71-76 640 mg 4 tsp 8 tabs 77-82 720 mg 4 1/2 tsp 9 tabs 83-88 800 mg 5 tsp 10 tabs >89 pounds or adults 650 mg to 900 mg Acetaminophen can be repeated every four hours. Maximum daily dose not to exceed 4000 mg. These maximum recommended dosages are slightly higher than the dosages written on the product container, but these dosages are very safe and well below the toxic dosage for acetaminophen. Ibuprofen Ibuprofen is an excellent, safe drug for pain control. In addition, it has potent antiinflammatory effects which are beneficial, especially in the treatment of injuries, arthritis, or tendonitis. It's best to take ibuprofen with food. Persons with ulcer disease or allergy to aspirin should notify their physician of this before taking ibuprofen. Take the medication exactly as prescribed. Don't take additional doses unless instructed to do so by your doctor. If you develop wheezing, shortness of breath, hives, faintness, stomach pain, vomiting, or dark black stools, return for re-evaluation at once. FOLLOW-UP CARE: If you have been referred to a physician for follow-up care, call the physician s office for an appointment as you were instructed or within the next two days. If you experience worsening or a significant change in your symptoms, notify the physician immediately or return to the Emergency Department at any time for re-evaluation. Referrals: MOJGAN VASQUEZ MD [ACTIVE STAFF] - Follow up as needed
--- NOTE | 2017-03-11 15:45 | RADIOLOGY REPORT (SQ) ---
EXAM DESCRIPTION: CHEST PA/LAT COMPLETED DATE/TIME: 03/11/2017 3:26 pm REASON FOR STUDY: chest pain COMPARISON: Chest x-ray 05/17/2016. EXAM PARAMETERS: NUMBER OF VIEWS: two views TECHNIQUE: Digital Frontal and Lateral radiographic views of the chest acquired. RADIATION DOSE: NA LIMITATIONS: none FINDINGS: LUNGS AND PLEURA: No consolidation, pneumothorax or pleural effusion. MEDIASTINUM AND HILAR STRUCTURES: No masses or contour abnormalities. HEART AND VASCULAR STRUCTURES: Heart normal size. No evidence for failure. BONES: No acute findings. HARDWARE: None in the chest. IMPRESSION: No acute radiographic finding in the chest. TECHNICAL DOCUMENTATION: JOB ID: [id number] [employer]- All Rights Reserved
[2017-03-11 15:56] LABS: ABSOLUTE BASOPHILS # (AUTO) 0.1 10^3/uL (0.0-0.2); ABSOLUTE EOSINOPHILS # (AUTO) 0.2 10^3/uL (0.0-0.6); ABSOLUTE LYMPHOCYTES (AUTO) 3.3 10^3/uL (0.5-4.7); ABSOLUTE MONOCYTES (AUTO) 0.3 10^3/uL (0.1-1.4); ABSOLUTE NEUT (AUTO) 2.3 10^3/uL (1.7-8.2); BASOPHILS % (AUTO) 1.6 % (0-2); EOSINOPHILS % (AUTO) 3.5 % (0-6); HEMOGLOBIN 13.2 g/dL (12.0-15.5); LYMPHOCYTES % (AUTO) 53.2 % (13-45); MEAN CORPUSCULAR HEMOGLOBIN 29.6 pg (27.0-33.4); MEAN CORPUSCULAR VOLUME 90 fl (80-97); MONOCYTES % (AUTO) 4.6 % (3-13); PLATELET COUNT 355 10^3/uL (150-450); RED BLOOD COUNT 4.47 10^6/uL (3.72-5.28); RED CELL DISTRIBUTION WIDTH 13.8 % (11.5-14.0); SEGMENTED NEUTROPHILS % (AUTO) 37.1 % (42-78); TOTAL CELLS COUNTED % (AUTO) 100 %; WHITE BLOOD COUNT 6.3 10^3/uL (4.0-10.5)
[2017-03-11 16:24] LABS: APPEARANCE,URINE CLEAR; BILIRUBIN,URINE NEGATIVE (NEGATIVE); COLOR,URINE YELLOW; GLUCOSE, URINE NEGATIVE (NEGATIVE); KETONES,URINE NEGATIVE (NEGATIVE); LEUKOCYTE ESTERASE,URINE NEGATIVE (NEGATIVE); NITRITE,URINE NEGATIVE (NEGATIVE); PROTEIN,URINE NEGATIVE (NEGATIVE); UROBILINOGEN,URINE NEGATIVE mg/dL (<2.0)
[2017-03-11 16:36] LABS: URINE AMPHETAMINES SCREEN NEGATIVE; URINE BARBITURATES SCREEN NEGATIVE; URINE BENZODIAZEPINES SCREEN NEGATIVE; URINE COCAINE SCREEN NEGATIVE; URINE MARIJUANA (THC) SCREEN NEGATIVE; URINE METHADONE SCREEN NEGATIVE; URINE PHENCYCLIDINE SCREEN NEGATIVE
[2017-03-11 17:03] LABS: ALANINE AMINOTRANSFERASE 36 U/L (9-52); ALBUMIN 4.1 g/dL (3.5-5.0); ALKALINE PHOSPHATASE 68 U/L (38-126); ANION GAP 9 (5-19); ASPARTATE AMINO TRANSFERASE 23 U/L (14-36); BILIRUBIN,DIRECT 0.2 mg/dL (0.0-0.4); BILIRUBIN,TOTAL 0.2 mg/dL (0.2-1.3); BLOOD UREA NITROGEN 11 mg/dL (7-20); CALCIUM 10.1 mg/dL (8.4-10.2); CARBON DIOXIDE 29 mmol/L (22-30); CHLORIDE 104 mmol/L (98-107); CREATINE KINASE 147 U/L (30-135); GLUCOSE 76 mg/dL (75-110); LIPASE 64.9 U/L (23-300); MAGNESIUM 1.8 mg/dL (1.6-2.3); POTASSIUM 4.2 mmol/L (3.6-5.0); SODIUM 142.3 mmol/L (137-145); TOTAL PROTEIN 7.4 g/dL (6.3-8.2)
[2017-03-11 17:10] LABS: CREATINE KINASE MB 0.58 ng/mL (<4.55)
[2017-03-11 17:16] LABS: TROPONIN I < 0.012 ng/mL
[2017-03-11 17:36] VITALS: BP 109/79
--- NOTE | 2017-03-12 11:57 | EKG REPORT ---
SEVERITY:- OTHERWISE NORMAL ECG - SINUS ARRHYTHMIA, RATE 56-76 : Confirmed by: Kimberley Rodriguez MD 12-Mar-2017 11:57:05
== END 2017-03-11 17:39 | disposition home or self-care (01) ==
LOC: ER 14:28
DX: R07.9 Chest pain, unspecified (principal); R05 Cough; R09.89 Other specified symptoms and signs involving the circulatory and respiratory systems; R14.1 Gas pain; J45.909 Unspecified asthma, uncomplicated; Z82.49 Family history of ischemic heart disease and other diseases of the circulatory system; Z88.1 Allergy status to other antibiotic agents; Z88.8 Allergy status to other drugs, medicaments and biological substances
CPT/HCPCS: 36415; 71046; 80053; 80307; 81001; 82550; 82553; 83690; 83735; 84484; 84703; 85025; 93005; 93010; 99285

== ENCOUNTER 2017-04-30 12:10 | Emergency (ER) | payer SELFPAY ==
[2017-04-30] MEDS ORDERED: ONDANSETRON 4 MG TAB.RAPDIS PO ONE (13:14)
--- NOTE | 2017-04-30 13:19 | ER Document Report ---
ED General - General Mode of Arrival: Ambulatory Information source: Patient TRAVEL OUTSIDE OF THE [place] IN LAST 30 DAYS: No - General Chief Complaint: Nausea/Vomiting Stated Complaint: STOMACH PAIN Time Seen by Provider: 04/30/17 13:08 Notes: 22 y.o female with a PMHx of endometriosis presents to the ED with lower abd and back pain of onset one week ago and N/V/D for the past couple days. Patient states that her last episode of vomiting was last night. She also notes a RAPHAEL of onset two days ago. She denies any fever, dysuria, vaginal discharge, hematuria , or hematemesis. She denies any positive contact with anyone with similar sx. She denies taking any medications for her sx at home. (BROOKS COVINGTON) - Related Data Allergies/Adverse Reactions: ciprofloxacin [From Cipro] Allergy (Verified 04/30/17 12:10) Hives ciprofloxacin HCl [From Cipro] Allergy (Verified 04/30/17 12:10) Hives metoclopramide HCl [From Reglan] Allergy (Verified 04/30/17 12:10) anxious prochlorperazine edisylate [From Compazine] Allergy (Verified 04/30/17 12:10) prochlorperazine maleate [From Compazine] Allergy (Verified 04/30/17 12:10) Past Medical History - General Information source: Patient - Social History Smoking Status: Never Smoker Chew tobacco use (# tins/day): No Frequency of alcohol use: None Drug Abuse: None Family History: CAD - mother, enlarged heart; father states his cardiac history started after his dialysis, CVA, DM, Hyperlipidemia, Hypertension - mother, Other - p. aunt recently passed from [place] at 45 years old, father with kidney problems Patient has suicidal ideation: No Patient has homicidal ideation: No - Past Medical History Cardiac Medical History: Denies: Hx Heart Attack, Hx Hypertension Pulmonary Medical History: Reports: Hx Asthma - ON INHALER, USES ABOUT ONCE A MONTH Neurological Medical History: Reports: Hx Migraine. Denies: Hx Cerebrovascular Accident, Hx Seizures Renal/ Medical History: Reports: Hx Ovarian Cysts. Denies: Hx Ectopic , Hx Peritoneal Dialysis, Hx Pelvic Inflammatory Disease GI Medical History: Reports: Hx Gastritis. Denies: Hx Hepatitis, Hx Hiatal Hernia, Hx Ulcer Infectious Medical History: Denies: Hx Hepatitis Past Surgical History: Reports: Hx Gynecologic Surgery - Laparoscopic surgery for diagnosis of endometriosis. Denies: Hx Hysterectomy, Hx Mastectomy, Hx Open Heart Surgery, Hx Pacemaker - Immunizations Immunizations up to date: Yes Hx Diphtheria, Pertussis, Tetanus Vaccination: Yes Review of Systems - Review of Systems Constitutional: See HPI. denies: Fever EENT: No symptoms reported Cardiovascular: No symptoms reported Respiratory: No symptoms reported Gastrointestinal: Abdominal pain - lower abd, Diarrhea, Nausea, Vomiting. denies: Blood streaked bowels, Blood in vomit, Black stools Genitourinary: See HPI. denies: Dysuria Female Genitourinary: See HPI. denies: Vaginal discharge Musculoskeletal: See HPI, Back pain Skin: No symptoms reported Hematologic/Lymphatic: No symptoms reported Neurological/Psychological: See HPI, Headaches -: Yes All other systems reviewed and negative Physical Exam - Vital signs Vitals: Temp Pulse Resp BP Pulse Ox 98.4 F 86 16 116/76 99 04/30/17 12:15 04/30/17 12:15 04/30/17 12:15 04/30/17 12:15 04/30/17 12:15 - Notes Notes: Physical Exam: General: Alert, appears well. HEENT: Normocephalic. Atraumatic. PERRL. Extraocular movements intact. Oropharynx clear. Neck: Supple. Non-tender. Respiratory: No respiratory distress. Clear and equal breath sounds bilaterally. Cardiovascular: Regular rate and rhythm. Abdominal: Normal Inspection. Non-tender. No distension. Normal Bowel Sounds. Back: Non-tender. No deformity or step off. Extremities: Moves all four extremities. Upper extremities: Normal inspection. Normal ROM. Lower extremities: Normal inspection. No edema. Normal ROM. Neurological: Normal cognition. AAOx4. Normal speech. Psychological: Normal affect. Normal Mood. Skin: Warm. Dry. Normal color. (BROOKS COVINGTON) Course - Re-evaluation Re-evalutation: 04/30/17 13:21 Patient well-appearing with benign exam and normal vitals. Will provide Zofran for nausea comfort. Return precautions provided including any worsening symptoms or development of fevers to return for reevaluation. (MARYCRUZ RIZZO) - Vital Signs Vital signs: Temp Pulse Resp BP Pulse Ox 98.1 F 67 18 113/62 98 04/30/17 14:20 03/18/18 14:20 04/30/17 14:20 04/30/17 14:20 04/30/17 14:20 Discharge - Discharge Condition: Good Disposition: HOME, SELF-CARE Instructions: Abdominal Pain ([facility]), Observation for Appendicitis ([facility]) Forms: Return to Work Scribe Attestation: 04/30/17 20:09 I personally performed the services described documentation, reviewed and edited the documentation which was dictated to describe my presence, and it accurately records my words and actions. (MARYCRUZ RIZZO) Scribe Documentation - Scribe Written by Scribe:: Lynne Berry 04/30/17 1321 acting as scribe for :: Joaquin
[2017-04-30 14:03] LABS: APPEARANCE,URINE CLEAR; BILIRUBIN,URINE NEGATIVE (NEGATIVE); COLOR,URINE YELLOW; GLUCOSE, URINE NEGATIVE (NEGATIVE); KETONES,URINE NEGATIVE (NEGATIVE); LEUKOCYTE ESTERASE,URINE NEGATIVE (NEGATIVE); NITRITE,URINE NEGATIVE (NEGATIVE); PROTEIN,URINE NEGATIVE (NEGATIVE); URINE SPECIFIC GRAVITY 1.025; UROBILINOGEN,URINE NEGATIVE mg/dL (<2.0)
[2017-04-30 14:23] VITALS: BP 113/62
== END 2017-04-30 14:23 | disposition home or self-care (01) ==
LOC: ER 12:10
DX: R11.2 Nausea with vomiting, unspecified (principal); R19.7 Diarrhea, unspecified; R10.30 Lower abdominal pain, unspecified; R51 Headache; M54.9 Dorsalgia, unspecified; J45.909 Unspecified asthma, uncomplicated; Z88.1 Allergy status to other antibiotic agents; Z88.8 Allergy status to other drugs, medicaments and biological substances; Z87.42 Personal history of other diseases of the female genital tract
CPT/HCPCS: 99284; 81025; 81001; S0119

== ENCOUNTER 2017-05-28 16:48 | Emergency (ER) | payer SELFPAY ==
[2017-05-28 16:54] VITALS: BP 112/72
--- NOTE | 2017-05-28 17:47 | ER Document Report ---
HPI - HPI Pain Level: 5 Notes: Patient is a 22-year-old female with no significant past medical history who presents to the ED complaining of pain and swelling to her third fourth and fifth digit of the right hand status post injury yesterday. Patient states that she landed on her hand and felt a pop in her hand. Patient states that since then she has had limited range of motion due to the pain, but has not had any associated numbness/tingling. Patient states that all her pain is primarily to the digits themselves. She denies any smoking or IV drug use. No other concerns or complaints at this time. Denies any headache, fever, URI, sore throat, chest pain, palpitations, syncope, cough, shortness of breath, wheeze, dyspnea, abdominal pain, nausea/vomiting/diarrhea, urinary retention, dysuria, hematuria, numbness/tingling, muscle paralysis, or rash. - ROS Systems Reviewed and Negative: Yes All other systems reviewed and negative - CONSTITUTIONAL Constitutional: DENIES: Fever, Chills - EENT EENT: DENIES: Sore Throat, Ear Pain, Eye problems - NEURO Neurology: DENIES: Headache, Weakness, Vision blurred, Dizzinesss / Vertigo - CARDIOVASCULAR Cardiovascular: DENIES: Chest pain - RESPIRATORY Respiratory: DENIES: Trouble Breathing, Coughing - GASTROINTESTINAL Gastrointestinal: DENIES: Abdominal Pain, Black / Bloody Stools - URINARY Urinary: DENIES: Dysuria, Urgency, Frequency - REPRODUCTIVE Reproductive: DENIES: : - MUSCULOSKELETAL Musculoskeletal: REPORTS: Extremity pain - R hand/ long & ring finger-fel Past Medical History - Social History Smoking Status: Unknown if Ever Smoked Family History: CAD - mother, enlarged heart; father states his cardiac history started after his dialysis, CVA, DM, Hyperlipidemia, Hypertension - mother, Other - p. aunt recently passed from NH at 45 years old, father with kidney problems Patient has suicidal ideation: No Patient has homicidal ideation: No - Past Medical History Cardiac Medical History: Denies: Hx Heart Attack, Hx Hypertension Pulmonary Medical History: Reports: Hx Asthma - ON INHALER, USES ABOUT ONCE A MONTH Neurological Medical History: Reports: Hx Migraine. Denies: Hx Cerebrovascular Accident, Hx Seizures Renal/ Medical History: Reports: Hx Ovarian Cysts. Denies: Hx Ectopic , Hx Peritoneal Dialysis, Hx Pelvic Inflammatory Disease GI Medical History: Reports: Hx Gastritis. Denies: Hx Hepatitis, Hx Hiatal Hernia, Hx Ulcer Infectious Medical History: Denies: Hx Hepatitis Past Surgical History: Reports: Hx Gynecologic Surgery - Laparoscopic surgery for diagnosis of endometriosis. Denies: Hx Hysterectomy, Hx Mastectomy, Hx Open Heart Surgery, Hx Pacemaker - Immunizations Immunizations up to date: Yes Hx Diphtheria, Pertussis, Tetanus Vaccination: Yes Vertical Provider Document - CONSTITUTIONAL Agree With Documented VS: Yes Notes: PHYSICAL EXAMINATION: GENERAL: Well-appearing, well-nourished and in no acute distress. LUNGS: Breath sounds clear to auscultation bilaterally and equal. No wheezes rales or rhonchi. HEART: Regular rate and rhythm without murmurs, rubs, gallops. Musculoskeletal: Rt hand: LROM to passive/active to finger flexion of the 3- 5th digits. Strength 4+/5. + mild swelling to each digit and + tenderness to palp of the phalanges #3-5. N/V intact distal. No obvious deformity. No scaphoid tenderness. No other bony tenderness of the hand/wrist. Extremities: No cyanosis, clubbing, or edema b/l. Peripheral pulses 2+. Capillary refill less than 3 seconds. NEUROLOGICAL: Normal speech, normal gait. Normal sensory, motor exams PSYCH: Normal mood, normal affect. SKIN: Warm, Dry, normal turgor, no rashes or lesions noted. - INFECTION CONTROL TRAVEL OUTSIDE OF THE [place] IN LAST 30 DAYS: No Course - Re-evaluation Re-evalutation: 05/28/17 17:47 Pt declined tylenol/motrin. Accepted ice. 05/28/17 18:39 Patient is an afebrile, well-hydrated, 22-year-old female who presents to the ED with an oblique fracture to her distal right fourth digit. Vitals are acceptable. PE is otherwise unremarkable for any neurovascular compromise, obvious tendon/limit rupture, open fracture. See x-ray result. Fingers were not was placed and sling provided for comfort temporarily. Conservative measures for symptoms. Recheck with your PCM in 3-5 days. Schedule an appointment with orthopedics for further evaluation and management. Return to the ED with any worsening/concerning symptoms otherwise as reviewed discharge. Patient is in agreement. - Vital Signs Vital signs: Temp Pulse Resp BP Pulse Ox 99.0 F 93 14 112/72 98 05/28/17 16:52 05/28/17 16:52 05/28/17 16:52 05/28/17 16:52 05/28/17 16:52 Discharge - Discharge Clinical Impression: Finger fracture, right Qualifiers: Encounter type: initial encounter Finger: ring finger Fracture type: closed Phalanx: distal Fracture alignment: nondisplaced Qualified Code(s): S62.664A - Nondisplaced fracture of distal phalanx of right ring finger, initial encounter for closed fracture Condition: Stable Disposition: HOME, SELF-CARE Additional Instructions: Rest, Ice, Compression, Elevation Use splint/sling as directed Tylenol/ibuprofen as needed Light stretches daily Strength exercises as able Moist heat and massage may help F/u with your PCP in 3-5 days for a recheck Schedule an appointment with orthopedics for further evaluation and management Return to the ED with any worsening symptoms and/or development of fever, headache, chest pain, palpitations, syncope, shortness of breath, trouble breathing, abdominal pain, n/v/d, muscle weakness/paralysis, numbness/tingling, swelling, redness, or other worsening symptoms that are concerning to you. Referrals: [facility] [Provider Group] - Follow up as needed
--- NOTE | 2017-05-28 18:20 | RADIOLOGY REPORT (SQ) ---
EXAM DESCRIPTION: HAND RIGHT 3 VIEWS COMPLETED DATE/TIME: 05/28/2017 6:05 pm REASON FOR STUDY: pain s/p injury COMPARISON: None. EXAM PARAMETERS: NUMBER OF VIEWS: Three views. TECHNIQUE: AP, lateral and oblique radiographic images acquired of the right hand. LIMITATIONS: None. FINDINGS: MINERALIZATION: Normal. BONES: Oblique fracture proximal and distal phalanx 4th digit medial intra-articular extension JOINTS: No effusions. SOFT TISSUES: No soft tissue swelling. No foreign body. OTHER: No other significant finding. IMPRESSION: Oblique intra-articular fracture distal phalanx 4th digit TECHNICAL DOCUMENTATION: JOB ID: [id number] [employer]- All Rights Reserved Reading location - IP/workstation name: [email or web address]
== END 2017-05-28 19:36 | disposition home or self-care (01) ==
LOC: ER 16:48
DX: S62.664A Nondisplaced fracture of distal phalanx of right ring finger, initial encounter for closed fracture (principal); M79.644 Pain in right finger(s); M79.89 Other specified soft tissue disorders; R20.0 Anesthesia of skin; J45.909 Unspecified asthma, uncomplicated; W19.XXXA Unspecified fall, initial encounter
CPT/HCPCS: 99283

== ENCOUNTER 2017-08-30 19:07 | Emergency (ER) | payer SELFPAY ==
--- NOTE | 2017-08-30 20:05 | ER Document Report ---
HPI - HPI Patient complains to provider of: Chest pain Pain Level: 4 Context: Patient is a 22-year-old -Citizen Of [place] female with a history of asthma presenting to the ED complaining 3 day history of sharp left-sided chest pains. Pain is intermittent, reproducible with palpation and worse with deep inspiration. Patient denies any recent cough or cold symptoms. Patient is a non-smoker. No oral contraceptives. Patient denies any recent travel. Patient does have a family history of coronary artery disease. Patient reports that when she moves her breast that increases the pain Associated Symptoms: None Exacerbated by: Movement, Deep breathing Relieved by: Denies Similar symptoms previously: No Recently seen / treated by doctor: No - ROS Systems Reviewed and Negative: Yes All other systems reviewed and negative - REPRODUCTIVE Reproductive: DENIES: : - DERM Skin Color: Normal Past Medical History - General Information source: Patient - Social History Smoking Status: Never Smoker Frequency of alcohol use: None Drug Abuse: None Lives with: Family Family History: CAD - mother, enlarged heart; father states his cardiac history started after his dialysis, CVA, DM, Hyperlipidemia, Hypertension - mother, Other - p. aunt recently passed from [place] at 45 years old, father with kidney problems Patient has suicidal ideation: No Patient has homicidal ideation: No - Past Medical History Cardiac Medical History: Denies: Hx Heart Attack, Hx Hypertension Pulmonary Medical History: Reports: Hx Asthma - ON INHALER, USES ABOUT ONCE A MONTH Neurological Medical History: Reports: Hx Migraine. Denies: Hx Cerebrovascular Accident, Hx Seizures Renal/ Medical History: Reports: Hx Ovarian Cysts. Denies: Hx Ectopic , Hx Peritoneal Dialysis, Hx Pelvic Inflammatory Disease GI Medical History: Reports: Hx Gastritis. Denies: Hx Hepatitis, Hx Hiatal Hernia, Hx Ulcer Infectious Medical History: Denies: Hx Hepatitis Past Surgical History: Reports: Hx Gynecologic Surgery - Laparoscopic surgery for diagnosis of endometriosis. Denies: Hx Hysterectomy, Hx Mastectomy, Hx Open Heart Surgery, Hx Pacemaker - Immunizations Immunizations up to date: Yes Hx Diphtheria, Pertussis, Tetanus Vaccination: Yes Vertical Provider Document - CONSTITUTIONAL Agree With Documented VS: Yes - INFECTION CONTROL TRAVEL OUTSIDE OF THE [place] IN LAST 30 DAYS: No - HEENT HEENT: Atraumatic, Normal ENT Exam, PERRLA - NECK Neck: Normal Inspection, Supple - RESPIRATORY Respiratory: Breath Sounds Normal, No Respiratory Distress, Other - Positive focal tenderness left anterior intercostal chest wall - CARDIOVASCULAR Cardiovascular: Regular Rate, Regular Rhythm - GI/ABDOMEN Gastrointestinal: Abdomen Soft, Abdomen Non-Tender - MUSCULOSKELETAL/EXTREMETIES Musculoskeletal/Extremeties: MANASA - NEURO Level of Consciousness: Awake, Alert, Appropriate - DERM Integumentary: Warm, Dry, No Rash Course - Re-evaluation Re-evalutation: 08/30/17 20:04 After performing a Medical Screening Examination, I estimate there is LOW risk for RUPTURED ESOPHAGUS, PNEUMOTHORAX, PULMONARY EMBOLISM, ACUTE CORONARY SYNDROME, OR THORACIC AORTIC DISSECTION, thus I consider the discharge disposition reasonable. I have reevaluated this patient multiple times and no significant life threatening changes are noted. The patient and I have discussed the diagnosis and risks, and we agree with discharging home with close follow-up. We also discussed returning to the Emergency Department immediately if new or worsening symptoms occur. We have discussed the symptoms which are most concerning (e.g., bloody sputum, worsening pain or shortness of breath) that necessitate immediate return. History and physical are more consistent with chest wall tenderness. Patient is not tachycardic or tachypneic. Oxygen level 98%. Will prescribe a course of anti-inflammatory medication. 08/30/17 20:06 08/30/17 20:16 EKG showing normal sinus rhythm no ST elevation or change 08/30/17 20:20 chest xray normal. no infiltrate. no cardmegaly. - Vital Signs Vital signs: Temp Pulse Resp BP Pulse Ox 98.6 F 85 14 119/86 H 98 08/30/17 19:10 08/30/17 19:10 08/30/17 19:10 08/30/17 19:10 08/30/17 19:10 Discharge - Discharge Clinical Impression: Chest wall pain Condition: Stable Disposition: HOME, SELF-CARE Instructions: Anti-Inflammatory Medication ([facility]), Chest Wall Pain ([facility]) Additional Instructions: your EKG was normal today your chest xray was normal today your pain is most likely musculoskelatal chest wall pain, low suspicion for cardiac or pulmonary disease take anti inflammatory as prescribed follow up with your primary care if symptoms persist return to ED for any worsening Prescriptions: Ibuprofen [Motrin 800 Mg Tablet] 800 mg PO Q6H #20 tablet
--- NOTE | 2017-08-30 20:28 | RADIOLOGY REPORT (SQ) ---
EXAM DESCRIPTION: CHEST 2 VIEWS COMPLETED DATE/TIME: 08/30/2017 8:14 pm REASON FOR STUDY: chest pain COMPARISON: 03/11/2017 EXAM PARAMETERS: NUMBER OF VIEWS: two views TECHNIQUE: Digital Frontal and Lateral radiographic views of the chest acquired. RADIATION DOSE: NA LIMITATIONS: none FINDINGS: LUNGS AND PLEURA: No opacities, masses or pneumothorax. No pleural effusion. MEDIASTINUM AND HILAR STRUCTURES: No masses or contour abnormalities. HEART AND VASCULAR STRUCTURES: Heart normal size. No evidence for failure. BONES: No acute findings. HARDWARE: None in the chest. OTHER: No other significant finding. IMPRESSION: NO ACUTE RADIOGRAPHIC FINDING IN THE CHEST. TECHNICAL DOCUMENTATION: JOB ID: [id number] 2010 [facility]- All Rights Reserved Reading location - IP/workstation name: [email or web address]
[2017-08-30 20:40] VITALS: BP 122/80
--- NOTE | 2017-08-30 21:55 | EKG REPORT ---
SEVERITY:- NORMAL ECG - SINUS RHYTHM : Confirmed by: Ofelia Sherman 30-Aug-2017 21:55:11
== END 2017-08-30 20:40 | disposition home or self-care (01) ==
LOC: ER 19:07
DX: R07.89 Other chest pain (principal)
CPT/HCPCS: 71046; 93005; 93010; 99285

== ENCOUNTER 2017-10-23 13:25 | Emergency (ER) | payer SELFPAY ==
[2017-10-23 14:25] VITALS: BP 106/72
--- NOTE | 2017-10-23 15:26 | ER Document Report ---
ED Medical Screen (RME) - General Chief Complaint: Lower Abdominal Pain Stated Complaint: ABDOMINAL PAIN Mode of Arrival: Ambulatory Information source: Patient Notes: Presents to the emergency department with complaints of lower abdominal pain. Reports history of endometriosis but reports this is worse pain. Denies fever vomiting diarrhea. Denies vaginal discharge. Reports sexually active no control. No complaints of dysuria. I have greeted and performed a rapid initial assessment of this patient. A comprehensive ED assessment and evaluation of the patient, analysis of test results and completion of the medical decision making process will be conducted by additional ED providers. TRAVEL OUTSIDE OF THE [place] IN LAST 30 DAYS: No - Related Data Allergies/Adverse Reactions: ciprofloxacin [From Cipro] Allergy (Verified 10/23/17 15:23) Hives ciprofloxacin HCl [From Cipro] Allergy (Verified 10/23/17 15:23) Hives metoclopramide HCl [From Reglan] Allergy (Verified 10/23/17 15:23) anxious prochlorperazine edisylate [From Compazine] Allergy (Verified 10/23/17 15:23) prochlorperazine maleate [From Compazine] Allergy (Verified 10/23/17 15:23) Past Medical History - Social History Chew tobacco use (# tins/day): No Frequency of alcohol use: None Drug Abuse: None - Past Medical History Cardiac Medical History: Denies: Hx Heart Attack, Hx Hypertension Pulmonary Medical History: Reports: Hx Asthma - ON INHALER, USES ABOUT ONCE A MONTH Neurological Medical History: Reports: Hx Migraine. Denies: Hx Cerebrovascular Accident, Hx Seizures Renal/ Medical History: Reports: Hx Ovarian Cysts. Denies: Hx Ectopic , Hx Peritoneal Dialysis, Hx Pelvic Inflammatory Disease GI Medical History: Reports: Hx Gastritis. Denies: Hx Hepatitis, Hx Hiatal Hernia, Hx Ulcer Infectious Medical History: Denies: Hx Hepatitis Past Surgical History: Reports: Hx Gynecologic Surgery - Laparoscopic surgery for diagnosis of endometriosis. Denies: Hx Hysterectomy, Hx Mastectomy, Hx Open Heart Surgery, Hx Pacemaker - Immunizations Immunizations up to date: Yes Hx Diphtheria, Pertussis, Tetanus Vaccination: Yes Physical Exam - Vital signs Vitals: Temp Pulse Resp BP Pulse Ox 97.4 F 85 20 106/72 98 10/23/17 14:23 10/23/17 14:23 10/23/17 14:23 10/23/17 14:23 10/23/17 14:23 Course - Vital Signs Vital signs: Temp Pulse Resp BP Pulse Ox 97.4 F 85 20 106/72 98 10/23/17 14:23 10/23/17 14:23 10/23/17 14:23 10/23/17 14:23 10/23/17 14:23
[2017-10-23 15:56] LABS: APPEARANCE,URINE CLEAR; BILIRUBIN,URINE NEGATIVE (NEGATIVE); COLOR,URINE YELLOW; GLUCOSE, URINE NEGATIVE (NEGATIVE); KETONES,URINE NEGATIVE (NEGATIVE); LEUKOCYTE ESTERASE,URINE NEGATIVE (NEGATIVE); NITRITE,URINE NEGATIVE (NEGATIVE); PROTEIN,URINE NEGATIVE (NEGATIVE); URINE SPECIFIC GRAVITY 1.023; UROBILINOGEN,URINE NEGATIVE mg/dL (<2.0)
[2017-10-23 16:03] LABS: ABSOLUTE EOSINOPHILS # (AUTO) 0.2 10^3/uL (0.0-0.6); ABSOLUTE LYMPHOCYTES (AUTO) 3.4 10^3/uL (0.5-4.7); ABSOLUTE MONOCYTES (AUTO) 0.5 10^3/uL (0.1-1.4); ABSOLUTE NEUT (AUTO) 3.6 10^3/uL (1.7-8.2); BASOPHILS % (AUTO) 0.6 % (0-2); EOSINOPHILS % (AUTO) 2.2 % (0-6); HEMATOCRIT 37.6 % (36.0-47.0); HEMOGLOBIN 12.4 g/dL (12.0-15.5); LYMPHOCYTES % (AUTO) 44.4 % (13-45); MEAN CORPUSCULAR HEMOGLOBIN 29.6 pg (27.0-33.4); MEAN CORPUSCULAR VOLUME 90 fl (80-97); MONOCYTES % (AUTO) 5.9 % (3-13); PLATELET COUNT 385 10^3/uL (150-450); RED CELL DISTRIBUTION WIDTH 13.2 % (11.5-14.0); SEGMENTED NEUTROPHILS % (AUTO) 46.9 % (42-78); TOTAL CELLS COUNTED % (AUTO) 100 %; WHITE BLOOD COUNT 7.8 10^3/uL (4.0-10.5)
[2017-10-23 16:27] LABS: ALANINE AMINOTRANSFERASE 45 U/L (9-52); ALBUMIN 4.2 g/dL (3.5-5.0); ALKALINE PHOSPHATASE 54 U/L (38-126); ANION GAP 10 (5-19); ASPARTATE AMINO TRANSFERASE 37 U/L (14-36); BILIRUBIN,DIRECT 0.2 mg/dL (0.0-0.4); BILIRUBIN,TOTAL 0.2 mg/dL (0.2-1.3); BLOOD UREA NITROGEN 12 mg/dL (7-20); CALCIUM 9.7 mg/dL (8.4-10.2); CARBON DIOXIDE 26 mmol/L (22-30); CHLORIDE 104 mmol/L (98-107); GLUCOSE 76 mg/dL (75-110); POTASSIUM 4.5 mmol/L (3.6-5.0); SODIUM 139.5 mmol/L (137-145); TOTAL PROTEIN 7.5 g/dL (6.3-8.2)
[2017-10-23 17:26] LABS: CHLAM PCR NOT DETECTED (NOT DETECT); GON PCR NOT DETECTED (NOT DETECT)
== END 2017-10-23 17:53 | disposition left against medical advice (07) ==
LOC: ER 13:25
DX: Z53.21 Procedure and treatment not carried out due to patient leaving prior to being seen by health care provider (principal); R10.30 Lower abdominal pain, unspecified; J45.909 Unspecified asthma, uncomplicated
CPT/HCPCS: 36415; 80053; 81001; 84703; 85025; 87491; 87591; 99281

== ENCOUNTER 2017-12-20 20:05 | Emergency (ER) | payer SELFPAY ==
[2017-12-20] MEDS ORDERED: IPRATROPIUM/ALBUTEROL 0.5-2.5 MG/3 ML AMPUL NEB ONE (20:58)
--- NOTE | 2017-12-20 21:38 | RADIOLOGY REPORT (SQ) ---
XR CHEST 2 VIEWS HISTORY: Cough. COMPARISON: None. FINDINGS: Normal cardiomediastinal silhouette. Lungs are clear. No pleural effusion or pneumothorax is seen. No acute osseous findings. IMPRESSION: No acute cardiopulmonary abnormality.
--- NOTE | 2017-12-20 21:38 | ER Document Report ---
ED General - General Chief Complaint: Painful Cough Stated Complaint: CHEST PAIN Time Seen by Provider: 12/20/17 20:32 Notes: Patient is a 22-year-old female with history of asthma that presents to the emergency department for chief complaint of cough, and chest congestion. Patient states she has been having cough, and parasternal chest pain with the cough over the last 4 days. She is felt congested, denies sputum. She denies shortness of breath. She states she just ran out of her albuterol inhaler at home, and she is not been able to use it to help with her symptoms. She denies noting any chest pain or dyspnea on exertion, denies any nausea, vomiting, diarrhea, abdominal pain, leg swelling, dysuria or hematuria. Past Medical History: Asthma Past Surgical History: Laparoscopy Social History: Denies tobacco, alcohol or illicit drug use Family History: Reviewed and noncontributory for presenting illness Allergies: Reviewed, see documented allergy list. REVIEW OF SYSTEMS: Other than noted above, the 12 point review of systems was reviewed with the patient and were negative, all pertinent findings are included in the HPI. PHYSICAL EXAMINATION: Vital signs reviewed, nursing noted reviewed. GENERAL: Well-appearing, well-nourished and in no acute distress. HEAD: Atraumatic, normocephalic. EYES: Eyes appear normal, extraocular movements intact, sclera anicteric, conjunctiva are normal. ENT: nares patent, oropharynx clear without exudates. Moist mucous membranes. NECK: Normal range of motion, supple without lymphadenopathy LUNGS: Faint expiratory wheezing noted throughout all lung driver on exam, no acute respiratory distress HEART: Regular rate and rhythm without murmurs ABDOMEN: Soft, nontender, normoactive bowel sounds. No rebound, guarding, or rigidity. No masses appreciated. EXTREMITIES: Nontender, good range of motion, no pitting or edema. NEUROLOGICAL: No focal neurological deficits. Moves all extremities spontaneously Motor and sensory grossly intact on exam. PSYCH: Normal mood, normal affect. SKIN: Warm, Dry, normal turgor, no rashes or lesions noted on exposed skin TRAVEL OUTSIDE OF THE [place] IN LAST 30 DAYS: No - Related Data Allergies/Adverse Reactions: ciprofloxacin [From Cipro] Allergy (Verified 10/23/17 15:23) Hives ciprofloxacin HCl [From Cipro] Allergy (Verified 09/10/18 15:23) Hives metoclopramide HCl [From Reglan] Allergy (Verified 10/23/17 15:23) anxious prochlorperazine edisylate [From Compazine] Allergy (Verified 10/23/17 15:23) prochlorperazine maleate [From Compazine] Allergy (Verified 10/23/17 15:23) Past Medical History - Social History Smoking Status: Never Smoker Frequency of alcohol use: None Drug Abuse: None Family History: CAD - mother, enlarged heart; father states his cardiac history started after his dialysis, CVA, DM, Hyperlipidemia, Hypertension - mother, Other - p. aunt recently passed from [place] at 45 years old, father with kidney problems Patient has suicidal ideation: No Patient has homicidal ideation: No - Past Medical History Cardiac Medical History: Denies: Hx Heart Attack, Hx Hypertension Pulmonary Medical History: Reports: Hx Asthma - ON INHALER, USES ABOUT ONCE A MONTH Neurological Medical History: Reports: Hx Migraine. Denies: Hx Cerebrovascular Accident, Hx Seizures Renal/ Medical History: Reports: Hx Ovarian Cysts. Denies: Hx Ectopic , Hx Peritoneal Dialysis, Hx Pelvic Inflammatory Disease GI Medical History: Reports: Hx Gastritis. Denies: Hx Hepatitis, Hx Hiatal Hernia, Hx Ulcer Infectious Medical History: Denies: Hx Hepatitis Past Surgical History: Reports: Hx Gynecologic Surgery - Laparoscopic surgery for diagnosis of endometriosis. Denies: Hx Hysterectomy, Hx Mastectomy, Hx Open Heart Surgery, Hx Pacemaker - Immunizations Immunizations up to date: Yes Hx Diphtheria, Pertussis, Tetanus Vaccination: Yes Physical Exam - Vital signs Vitals: Temp Pulse Resp BP Pulse Ox 98.3 F 79 16 117/75 98 12/20/17 20:25 12/20/17 20:25 12/20/17 20:25 12/20/17 20:25 12/20/17 20:25 Course - Re-evaluation Re-evalutation: Patient seen and examined vital signs reviewed. Laboratory data and imaging were ordered as appropriate for the patient's presenting symptoms and complaint, with consideration of any critical or life threatening conditions that may be associated with their obtained history and exam as noted above. Patient was treated with DuoNeb breathing treatment Results were reviewed when available and demonstrated negative chest x-ray, negative The patient was re-evaluated and was improved after DuoNeb, patient be given prednisone, and albuterol inhaler, advised to use every 4 hours for the next 3- 4 days, then as needed. Evaluation was most consistent with asthma exacerbation, patient will be treated with prednisone 40 mg for 4 additional days Results were discussed with the patient at this point, after careful consideration I feel that that patient can be discharged from the emergency department, the patient was educated treatments and reasons to return to the emergency department based on their presumed diagnosis as noted above, they were advised to followup with a primary care physician in 2-3 days. Patient was agreeable to plan of care. *Note is created using voice recognition software and may contain spelling, syntax or grammatical errors. Laboratory 12/20/17 21:20 Urine HCG, Qual NEGATIVE Chest X-Ray 12/20/17 20:57 IMPRESSION: No acute cardiopulmonary abnormality. - Vital Signs Vital signs: Temp Pulse Resp BP Pulse Ox 98.3 F 79 16 117/75 98 12/20/17 20:25 12/20/17 20:25 12/20/17 20:25 12/20/17 20:25 12/20/17 20:25 - EKG Interpretation by Me Additional EKG results interpreted by me: EKG demonstrates sinus rhythm with a ventricular rate of 79 bpm, normal axis, normal intervals, no evidence of acute ischemia on this EKG, this is compared with prior EKG from 08/30/2017, without significant change. Discharge - Discharge Clinical Impression: Asthma exacerbation Qualifiers: Asthma severity: unspecified severity Asthma persistence: unspecified Qualified Code(s): J45.901 - Unspecified asthma with (acute) exacerbation Condition: Stable Disposition: HOME, SELF-CARE Instructions: Asthma ([facility]) Additional Instructions: Please use the inhaler every 4 hours for the next 3-4 days, 2 puffs, and take the prednisone as directed, and follow-up with your primary care physician. Prescriptions: Prednisone [Deltasone 20 mg Tablet] 2 tab PO DAILY #8 tablet Referrals: MATTHEW GUZMAN MD [COMMUNITY BASED STAFF] - Follow up in 3-5 days (or your primary care. )
[2017-12-20] MEDS ORDERED: PREDNISONE 20 MG TABLET PO ONE (22:02)
[2017-12-20] MEDS ORDERED: ALBUTEROL SULFATE HFA (90 MCG/PUFF) 8 GM MDI (1 MDI/ER DISP) IH ONE (22:06)
[2017-12-20 22:23] VITALS: BP 120/89
--- NOTE | 2017-12-21 07:37 | EKG REPORT ---
SEVERITY:- NORMAL ECG - SINUS RHYTHM : Confirmed by: Channing Perez MD 21-Dec-2017 07:36:35
== END 2017-12-20 22:26 | disposition home or self-care (01) ==
LOC: ER 20:05
DX: J45.901 Unspecified asthma with (acute) exacerbation (principal); T48.6X6A Underdosing of antiasthmatics, initial encounter; Z91.128 Patient's intentional underdosing of medication regimen for other reason; Z91.14 Patient's other noncompliance with medication regimen; R05 Cough; R09.89 Other specified symptoms and signs involving the circulatory and respiratory systems; R07.9 Chest pain, unspecified; Z88.1 Allergy status to other antibiotic agents; Z88.8 Allergy status to other drugs, medicaments and biological substances; Z82.49 Family history of ischemic heart disease and other diseases of the circulatory system
CPT/HCPCS: 93005; 94640; 99284; 81025; 71046; 93010; J7512; J3490; J7620

== ENCOUNTER 2018-03-08 10:25 | Emergency (ER) | payer SELFPAY ==
[2018-03-08 10:34] VITALS: BP 126/79
--- NOTE | 2018-03-08 10:43 | ER Document Report ---
ED Medical Screen (RME) - General Chief Complaint: Abdominal Pain Stated Complaint: ABDOMINAL PAIN Time Seen by Provider: 03/08/18 10:38 Mode of Arrival: Ambulatory Information source: Patient Notes: This is a 23-year-old female with a history of migraines, and presents to the emergency room with a lower abdominal pain associated with dysuria and vaginal discharge. Patient's last normal menstrual period was December 30. She does states she took a home test which was negative. TRAVEL OUTSIDE OF THE [place] IN LAST 30 DAYS: No - Related Data Allergies/Adverse Reactions: ciprofloxacin [From Cipro] Allergy (Verified 10/23/17 15:23) Hives ciprofloxacin HCl [From Cipro] Allergy (Verified 10/23/17 15:23) Hives metoclopramide HCl [From Reglan] Allergy (Verified 10/23/17 15:23) anxious prochlorperazine edisylate [From Compazine] Allergy (Verified 10/23/17 15:23) prochlorperazine maleate [From Compazine] Allergy (Verified 10/23/17 15:23) Past Medical History - Past Medical History Cardiac Medical History: Denies: Hx Heart Attack, Hx Hypertension Pulmonary Medical History: Reports: Hx Asthma - ON INHALER, USES ABOUT ONCE A MONTH Neurological Medical History: Reports: Hx Migraine. Denies: Hx Cerebrovascular Accident, Hx Seizures Renal/ Medical History: Reports: Hx Ovarian Cysts. Denies: Hx Ectopic , Hx Peritoneal Dialysis, Hx Pelvic Inflammatory Disease GI Medical History: Reports: Hx Gastritis. Denies: Hx Hepatitis, Hx Hiatal Hernia, Hx Ulcer Infectious Medical History: Denies: Hx Hepatitis Past Surgical History: Reports: Hx Gynecologic Surgery - Laparoscopic surgery for diagnosis of endometriosis. Denies: Hx Hysterectomy, Hx Mastectomy, Hx Open Heart Surgery, Hx Pacemaker - Immunizations Immunizations up to date: Yes Hx Diphtheria, Pertussis, Tetanus Vaccination: Yes Physical Exam - Vital signs Vitals: Temp Pulse Resp BP Pulse Ox 98.4 F 77 14 126/79 H 100 03/08/18 10:32 03/08/18 10:32 03/08/18 10:32 03/08/18 10:32 03/08/18 10:32 Course - Vital Signs Vital signs: Temp Pulse Resp BP Pulse Ox 98.4 F 77 14 126/79 H 100 03/08/18 10:32 03/08/18 10:32 03/08/18 10:32 03/08/18 10:32 03/08/18 10:32
[2018-03-08 11:15] LABS: ABSOLUTE BASOPHILS # (AUTO) 0.1 10^3/uL (0.0-0.2); ABSOLUTE EOSINOPHILS # (AUTO) 0.1 10^3/uL (0.0-0.6); ABSOLUTE LYMPHOCYTES (AUTO) 2.7 10^3/uL (0.5-4.7); ABSOLUTE MONOCYTES (AUTO) 0.3 10^3/uL (0.1-1.4); ABSOLUTE NEUT (AUTO) 3.1 10^3/uL (1.7-8.2); BASOPHILS % (AUTO) 0.8 % (0-2); EOSINOPHILS % (AUTO) 2.2 % (0-6); HEMATOCRIT 37.3 % (36.0-47.0); HEMOGLOBIN 12.5 g/dL (12.0-15.5); LYMPHOCYTES % (AUTO) 42.5 % (13-45); MEAN CORPUSCULAR HEMOGLOBIN 29.6 pg (27.0-33.4); MEAN CORPUSCULAR HGB CONC 33.5 g/dL (32.0-36.0); MEAN CORPUSCULAR VOLUME 89 fl (80-97); MONOCYTES % (AUTO) 4.9 % (3-13); PLATELET COUNT 344 10^3/uL (150-450); RED BLOOD COUNT 4.22 10^6/uL (3.72-5.28); RED CELL DISTRIBUTION WIDTH 13.7 % (11.5-14.0); SEGMENTED NEUTROPHILS % (AUTO) 49.6 % (42-78); TOTAL CELLS COUNTED % (AUTO) 100 %; WHITE BLOOD COUNT 6.3 10^3/uL (4.0-10.5)
[2018-03-08 11:21] LABS: APPEARANCE,URINE CLOUDY; BILIRUBIN,URINE NEGATIVE (NEGATIVE); COLOR,URINE YELLOW; GLUCOSE, URINE NEGATIVE (NEGATIVE); KETONES,URINE NEGATIVE (NEGATIVE); LEUKOCYTE ESTERASE,URINE NEGATIVE (NEGATIVE); NITRITE,URINE NEGATIVE (NEGATIVE); PROTEIN,URINE NEGATIVE (NEGATIVE); URINE SPECIFIC GRAVITY 1.016; UROBILINOGEN,URINE NEGATIVE mg/dL (<2.0)
[2018-03-08 11:36] LABS: ALANINE AMINOTRANSFERASE 25 U/L (9-52); ALBUMIN 4.2 g/dL (3.5-5.0); ALKALINE PHOSPHATASE 61 U/L (38-126); ANION GAP 6 (5-19); ASPARTATE AMINO TRANSFERASE 22 U/L (14-36); BILIRUBIN,DIRECT 0.2 mg/dL (0.0-0.4); BILIRUBIN,TOTAL 0.3 mg/dL (0.2-1.3); BLOOD UREA NITROGEN 11 mg/dL (7-20); CALCIUM 9.6 mg/dL (8.4-10.2); CARBON DIOXIDE 32 mmol/L (22-30); CHLORIDE 105 mmol/L (98-107); GLUCOSE 104 mg/dL (75-110); POTASSIUM 4.2 mmol/L (3.6-5.0); SODIUM 142.5 mmol/L (137-145)
--- NOTE | 2018-03-08 12:19 | ER Document Report ---
ED General - General Chief Complaint: Abdominal Pain Stated Complaint: ABDOMINAL PAIN Time Seen by Provider: 03/08/18 10:38 Primary Care Provider: DEYANIRA LUZ DO [NO LOCAL MD] - Follow up in 3-5 days EDGARD GALEAS MD [ACTIVE STAFF] - Follow up in 3-5 days Mode of Arrival: Ambulatory TRAVEL OUTSIDE OF THE [place] IN LAST 30 DAYS: No - HPI Notes: 23-year-old female presents to ED with complaints of dysuria as well as vaginal discharge for the last 4 days. Is not tried anything [id number]. Denies history of UTIs, kidney functions. Patient is concerned about STDs and would like to be evaluated. Is sexually active and not using barrier protection. LMP times 2 weeks ago. Denies fevers, chills, chest pain,palpitations, shortness of breath, dyspnea, nausea, vomiting, diarrhea, abdominal pain, hematuria, speech changes, LH, dizziness, syncope, headaches, wheezing, weakness, bowel or bladder dysfunction, saddle anesthesia, numbness or tingling in bilateral upper or lower extremities equally - Related Data Allergies/Adverse Reactions: ciprofloxacin [From Cipro] Allergy (Verified 10/23/17 15:23) Hives ciprofloxacin HCl [From Cipro] Allergy (Verified 10/23/17 15:23) Hives metoclopramide HCl [From Reglan] Allergy (Verified 10/23/17 15:23) anxious prochlorperazine edisylate [From Compazine] Allergy (Verified 10/23/17 15:23) prochlorperazine maleate [From Compazine] Allergy (Verified 10/23/17 15:23) Past Medical History - General Information source: Patient - Social History Smoking Status: Never Smoker Frequency of alcohol use: None Drug Abuse: None Family History: CAD - mother, enlarged heart; father states his cardiac history started after his dialysis, CVA, DM, Hyperlipidemia, Hypertension - mother, Other - p. aunt recently passed from [place] at 45 years old, father with kidney problems Patient has suicidal ideation: No Patient has homicidal ideation: No - Past Medical History Cardiac Medical History: Denies: Hx Heart Attack, Hx Hypertension Pulmonary Medical History: Reports: Hx Asthma - ON INHALER, USES ABOUT ONCE A MONTH Neurological Medical History: Reports: Hx Migraine. Denies: Hx Cerebrovascular Accident, Hx Seizures Renal/ Medical History: Reports: Hx Ovarian Cysts. Denies: Hx Ectopic , Hx Peritoneal Dialysis, Hx Pelvic Inflammatory Disease GI Medical History: Reports: Hx Gastritis. Denies: Hx Hepatitis, Hx Hiatal Hernia, Hx Ulcer Infectious Medical History: Denies: Hx Hepatitis Past Surgical History: Reports: Hx Gynecologic Surgery - Laparoscopic surgery for diagnosis of endometriosis. Denies: Hx Hysterectomy, Hx Mastectomy, Hx Open Heart Surgery, Hx Pacemaker - Immunizations Immunizations up to date: Yes Hx Diphtheria, Pertussis, Tetanus Vaccination: Yes Review of Systems - Review of Systems Constitutional: No symptoms reported EENT: No symptoms reported Cardiovascular: No symptoms reported Respiratory: No symptoms reported Gastrointestinal: No symptoms reported Genitourinary: See HPI Female Genitourinary: No symptoms reported Musculoskeletal: No symptoms reported Skin: No symptoms reported Hematologic/Lymphatic: No symptoms reported Neurological/Psychological: No symptoms reported Physical Exam - Vital signs Vitals: Temp Pulse Resp BP Pulse Ox 98.4 F 77 14 126/79 H 100 03/08/18 10:32 03/08/18 10:32 03/08/18 10:32 03/08/18 10:32 03/08/18 10:32 - Notes Notes: PHYSICAL EXAMINATION: GENERAL: Well-appearing, well-nourished and in no acute distress. HEAD: Atraumatic, normocephalic. EYES: Pupils equal round and reactive to light, extraocular movements intact, conjunctiva are normal. ENT: Nares patent, oropharynx clear without exudates. Moist mucous membranes. NECK: Normal range of motion, supple without lymphadenopathy LUNGS: Breath sounds clear to auscultation bilaterally and equal. No wheezes rales or rhonchi. HEART: Regular rate and rhythm without murmurs ABDOMEN: Soft, nontender, nondistended abdomen. No guarding, no rebound. No masses appreciated. Female : External genitalia without erythema, exudate or discharge. Vaginal vault is without discharge. Cervix is of normal color without lesion. There is no bleeding noted. Uterus is noted to be of normal size and nontender. No cervical motion tenderness is seen. No masses are palpated. os closed, no adnexal tenderness or mass. positive whiff test Musculoskeletal: Normal range of motion, no pitting or edema. No cyanosis. NEUROLOGICAL: Cranial nerves grossly intact. Normal speech, normal gait. Norm al sensory, motor exams PSYCH: Normal mood, normal affect. SKIN: Warm, Dry, normal turgor, no rashes or lesions noted. Course - Re-evaluation Re-evalutation: 03/08/18 12:17 Afebrile vitals stable no distress. Female presents for evaluation of dysuria and vaginal discharge. Urinalysis negative for UTI, no hematuria, proteinuria, CBC CMP unremarkable, clinical examination does show positive with test, Chlamydia gonorrhea results pending, wet mount did show BV will treat with Flagyl 500 mg twice a day for 7 days as well as cystitis with Macrobid twice a day for 3 days. Serum hCG negative we will culture her urine. advised to use condoms with every interaction between the 2 exams STDs, advised to follow-up with health department or primary care provider for further evaluation of STD testing with serum blood work for HIV, syphilis, hepatitis C etc. after performing a Medical Screening Examination, I estimate there is LOW risk for ACUTE APPENDICITIS, BOWEL OBSTRUCTION, ACUTE CHOLECYSTITIS, PERFORATED DIVERTICULITIS, INCARCERATED HERNIA, PANCREATITIS, PELVIC INFLAMMATORY DISEASE, PERFORATED ULCER, ECTOPIC , or TUBO-OVARIAN ABSCESS, thus I consider the discharge disposition reasonable. Also, there is no evidence or peritonitis, sepsis, or toxicity. I have reevaluated this patient multiple times and no sig nificant life threatening changes are noted. The patient and I have discussed the diagnosis and risks, and we agree with discharging home with close follow-up with the understanding that symptoms and presentations can change. We also discussed returning to the Emergency Department immediately if new or worsening symptoms occur. We have discussed the symptoms which are most concerning (e.g., bloody stool, fever, changing or worsening pain, vomiting) that necessitate immediate return. Follow-up with primary care provider FISH FLIPPER as needed. - Vital Signs Vital signs: Temp Pulse Resp BP Pulse Ox 98.4 F 77 14 126/79 H 100 03/08/18 10:32 03/08/18 10:32 03/08/18 10:32 03/08/18 10:32 03/08/18 10:32 - Laboratory Result Diagrams: 03/08/18 10:57 03/08/18 10:57 Laboratory results interpreted by me: 03/08/18 10:57 Carbon Dioxide 32 H Discharge - Discharge Clinical Impression: Vaginal discharge, Dysuria Condition: Stable Disposition: HOME, SELF-CARE Additional Instructions: Vaginosis, Bacterial Your exam shows you have bacterial vaginosis. This condition is due to an overgrowth of bacteria in the vagina. Symptoms may include vaginal itching or pain, a smelly discharge, and sometimes burning with urination. Normally this is not transmitted by sexual contact. Vaginosis can be treated with oral or topical antibiotics. Metronidazole (Flagyl) pills are usually effective. Topical vaginal creams include Cleocin and Metro-Gel. You should avoid sexual contact until your symptoms are all better. Call the doctor if you develop pelvic pain, fever, or problems with urination, or if you don't improve as expected. Prescriptions: Metronidazole [Flagyl] 500 mg PO BID #14 tablet Nitrofurantoin Macrocrystal [Macrodantin] 100 mg PO BID #6 capsule Forms: Return to Work Referrals: DEYANIRA LUZ DO [NO LOCAL MD] - Follow up in 3-5 days EDGARD GALEAS MD [ACTIVE STAFF] - Follow up in 3-5 days
[2018-03-08 12:22] LABS: RBCS (WET MOUNT) RARE RBCS SEEN; T.VAGINALIS (WET MOUNT) NO TRICHOMONAS SEEN; WBCS (WET MOUNT) RARE WBCS SEEN; YEAST (WET MOUNT) NO YEAST SEEN
[2018-03-08 12:23] LABS: BACTERIA (WET MOUNT) 3+ BACTERIA SEEN
[2018-03-08 13:48] LABS: CHLAM PCR NOT DETECTED (NOT DETECT); GON PCR NOT DETECTED (NOT DETECT)
== END 2018-03-08 13:51 | disposition home or self-care (01) ==
LOC: ER 10:25
DX: N89.8 Other specified noninflammatory disorders of vagina (principal); R30.0 Dysuria; R10.9 Unspecified abdominal pain; J45.909 Unspecified asthma, uncomplicated
CPT/HCPCS: 36415; 80053; 81001; 84702; 85025; 87086; 87088; 87210; 87491; 87591; 99284

== ENCOUNTER 2018-04-14 12:51 | Emergency (ER) | payer SELFPAY ==
--- NOTE | 2018-04-14 13:14 | ER Document Report ---
ED Medical Screen (RME) - General Chief Complaint: Abdominal Pain Stated Complaint: FLU LIKE SYMPTOMS Time Seen by Provider: 04/14/18 13:11 Mode of Arrival: Ambulatory Information source: Patient TRAVEL OUTSIDE OF THE [place] IN LAST 30 DAYS: No - HPI Patient complains to provider of: cough; abd pain; vag d/c Onset: Other - pt with c/o cough, abdominal pain and vaginal d/c for the past 2- 3 days. - Related Data Allergies/Adverse Reactions: ciprofloxacin [From Cipro] Allergy (Verified 04/14/18 12:52) Hives ciprofloxacin HCl [From Cipro] Allergy (Verified 04/14/18 12:52) Hives metoclopramide HCl [From Reglan] Allergy (Verified 04/14/18 12:52) anxious prochlorperazine edisylate [From Compazine] Allergy (Verified 04/14/18 12:52) prochlorperazine maleate [From Compazine] Allergy (Verified 04/14/18 12:52) Past Medical History - Social History Chew tobacco use (# tins/day): No Frequency of alcohol use: None Drug Abuse: None - Past Medical History Cardiac Medical History: Denies: Hx Heart Attack, Hx Hypertension Pulmonary Medical History: Reports: Hx Asthma - ON INHALER, USES ABOUT ONCE A MONTH Neurological Medical History: Reports: Hx Migraine. Denies: Hx Cerebrovascular Accident, Hx Seizures Renal/ Medical History: Reports: Hx Ovarian Cysts. Denies: Hx Ectopic , Hx Peritoneal Dialysis, Hx Pelvic Inflammatory Disease GI Medical History: Reports: Hx Gastritis. Denies: Hx Hepatitis, Hx Hiatal Hernia, Hx Ulcer Infectious Medical History: Denies: Hx Hepatitis Past Surgical History: Reports: Hx Gynecologic Surgery - Laparoscopic surgery for diagnosis of endometriosis. Denies: Hx Hysterectomy, Hx Mastectomy, Hx Open Heart Surgery, Hx Pacemaker - Immunizations Immunizations up to date: Yes Hx Diphtheria, Pertussis, Tetanus Vaccination: Yes Physical Exam - Vital signs Vitals: Temp Pulse Resp BP Pulse Ox 99.5 F 105 H 20 128/65 H 100 04/14/18 12:55 04/14/18 12:55 04/14/18 12:55 04/14/18 12:55 04/14/18 12:55 Course - Vital Signs Vital signs: Temp Pulse Resp BP Pulse Ox 99.5 F 105 H 20 128/65 H 100 04/14/18 12:55 04/14/18 12:55 04/14/18 12:55 04/14/18 12:55 04/14/18 12:55
--- NOTE | 2018-04-14 13:55 | RADIOLOGY REPORT (SQ) ---
EXAM DESCRIPTION: CHEST 2 VIEWS COMPLETED DATE/TIME: 04/14/2018 1:47 pm REASON FOR STUDY: cough COMPARISON: 12/20/2017. EXAM PARAMETERS: NUMBER OF VIEWS: two views TECHNIQUE: Digital Frontal and Lateral radiographic views of the chest acquired. RADIATION DOSE: NA LIMITATIONS: none FINDINGS: LUNGS AND PLEURA: No opacities, masses or pneumothorax. No pleural effusion. MEDIASTINUM AND HILAR STRUCTURES: No masses or contour abnormalities. HEART AND VASCULAR STRUCTURES: Heart normal size. No evidence for failure. BONES: No acute findings. HARDWARE: None in the chest. OTHER: No other significant finding. IMPRESSION: NO ACUTE RADIOGRAPHIC FINDING IN THE CHEST. TECHNICAL DOCUMENTATION: JOB ID: [id number] [employer]- All Rights Reserved Reading location - IP/workstation name: [email or web address]
[2018-04-14 14:02] LABS: APPEARANCE,URINE SLIGHTLY-CLOUDY; BILIRUBIN,URINE NEGATIVE (NEGATIVE); COLOR,URINE YELLOW; GLUCOSE, URINE NEGATIVE (NEGATIVE); KETONES,URINE NEGATIVE (NEGATIVE); LEUKOCYTE ESTERASE,URINE TRACE (NEGATIVE); NITRITE,URINE NEGATIVE (NEGATIVE); PROTEIN,URINE NEGATIVE (NEGATIVE)
[2018-04-14 14:13] LABS: ABSOLUTE BASOPHILS # (AUTO) 0.1 10^3/uL (0.0-0.2); ABSOLUTE EOSINOPHILS # (AUTO) 0.2 10^3/uL (0.0-0.6); ABSOLUTE MONOCYTES (AUTO) 0.6 10^3/uL (0.1-1.4); ABSOLUTE NEUT (AUTO) 5.2 10^3/uL (1.7-8.2); BASOPHILS % (AUTO) 0.7 % (0-2); EOSINOPHILS % (AUTO) 2.2 % (0-6); HEMATOCRIT 37.9 % (36.0-47.0); HEMOGLOBIN 12.8 g/dL (12.0-15.5); LYMPHOCYTES % (AUTO) 33.4 % (13-45); MEAN CORPUSCULAR HEMOGLOBIN 29.6 pg (27.0-33.4); MEAN CORPUSCULAR HGB CONC 33.6 g/dL (32.0-36.0); MEAN CORPUSCULAR VOLUME 88 fl (80-97); MONOCYTES % (AUTO) 6.4 % (3-13); PLATELET COUNT 361 10^3/uL (150-450); RED BLOOD COUNT 4.32 10^6/uL (3.72-5.28); RED CELL DISTRIBUTION WIDTH 13.5 % (11.5-14.0); SEGMENTED NEUTROPHILS % (AUTO) 57.3 % (42-78); TOTAL CELLS COUNTED % (AUTO) 100 %; WHITE BLOOD COUNT 9.1 10^3/uL (4.0-10.5)
[2018-04-14 14:25] LABS: ALANINE AMINOTRANSFERASE 29 U/L (9-52); ALBUMIN 4.4 g/dL (3.5-5.0); ALKALINE PHOSPHATASE 69 U/L (38-126); ANION GAP 9 (5-19); ASPARTATE AMINO TRANSFERASE 17 U/L (14-36); BILIRUBIN,DIRECT 0.1 mg/dL (0.0-0.4); BILIRUBIN,TOTAL 0.4 mg/dL (0.2-1.3); BLOOD UREA NITROGEN 11 mg/dL (7-20); CALCIUM 9.7 mg/dL (8.4-10.2); CARBON DIOXIDE 29 mmol/L (22-30); CHLORIDE 105 mmol/L (98-107); GLUCOSE 107 mg/dL (75-110); LIPASE 52.6 U/L (23-300); POTASSIUM 4.1 mmol/L (3.6-5.0); SODIUM 143.4 mmol/L (137-145); TOTAL PROTEIN 7.7 g/dL (6.3-8.2)
[2018-04-14 14:30] LABS: A TYPE INFLUENZA AG NEGATIVE (NEGATIVE); B INFLUENZA AG NEGATIVE (NEGATIVE)
[2018-04-14 15:40] LABS: CHLAM PCR NOT DETECTED (NOT DETECT); GON PCR NOT DETECTED (NOT DETECT)
[2018-04-14 15:52] LABS: T.VAGINALIS (WET MOUNT) NO TRICHOMONAS SEEN; YEAST (WET MOUNT) NO YEAST SEEN
[2018-04-14 15:53] LABS: BACTERIA (WET MOUNT) 3+ BACTERIA SEEN; RBCS (WET MOUNT) RARE RBCS SEEN; WBCS (WET MOUNT) RARE WBCS SEEN
--- NOTE | 2018-04-14 16:26 | ER Document Report ---
ED General - General Chief Complaint: Abdominal Pain Stated Complaint: FLU LIKE SYMPTOMS Time Seen by Provider: 04/14/18 13:11 Primary Care Provider: MOJGAN VASQUEZ MD [Primary Care Provider] - Follow up in 3-5 days Mode of Arrival: Ambulatory Information source: Patient Notes: This is a 23-year-old female with a history of asthma and endometriosis presents to the emergency room with 2-week history of persisting cough, congestion. Patient also notes some lower abdominal cramping and concerns that she might be . TRAVEL OUTSIDE OF THE [place] IN LAST 30 DAYS: No - HPI Onset: Last week Onset/Duration: Gradual Quality of pain: Cramping Severity: Mild Pain Level: 1 Associated symptoms: Nonproductive cough. denies: Fever, Shortness of breath Exacerbated by: Denies Relieved by: Denies Similar symptoms previously: Yes Recently seen / treated by doctor: No - Related Data Allergies/Adverse Reactions: ciprofloxacin [From Cipro] Allergy (Verified 04/14/18 12:52) Hives ciprofloxacin HCl [From Cipro] Allergy (Verified 04/14/18 12:52) Hives metoclopramide HCl [From Reglan] Allergy (Verified 04/14/18 12:52) anxious prochlorperazine edisylate [From Compazine] Allergy (Verified 04/14/18 12:52) prochlorperazine maleate [From Compazine] Allergy (Verified 04/14/18 12:52) Past Medical History - General Information source: Patient - Social History Smoking Status: Never Smoker Cigarette use (# per day): No Chew tobacco use (# tins/day): No Frequency of alcohol use: None Drug Abuse: None Lives with: Family Family History: CAD - mother, enlarged heart; father states his cardiac history started after his dialysis, CVA, DM, Hyperlipidemia, Hypertension - mother, Other - p. aunt recently passed from [place] at 45 years old, father with kidney problems Patient has suicidal ideation: No Patient has homicidal ideation: No - Past Medical History Cardiac Medical History: Denies: Hx Heart Attack, Hx Hypertension Pulmonary Medical History: Reports: Hx Asthma - ON INHALER, USES ABOUT ONCE A MONTH Neurological Medical History: Reports: Hx Migraine. Denies: Hx Cerebrovascular Accident, Hx Seizures Renal/ Medical History: Reports: Hx Ovarian Cysts. Denies: Hx Ectopic , Hx Peritoneal Dialysis, Hx Pelvic Inflammatory Disease GI Medical History: Reports: Hx Gastritis. Denies: Hx Hepatitis, Hx Hiatal Hernia, Hx Ulcer Infectious Medical History: Denies: Hx Hepatitis Past Surgical History: Reports: Hx Gynecologic Surgery - Laparoscopic surgery for diagnosis of endometriosis. Denies: Hx Hysterectomy, Hx Mastectomy, Hx Open Heart Surgery, Hx Pacemaker - Immunizations Immunizations up to date: Yes Hx Diphtheria, Pertussis, Tetanus Vaccination: Yes Review of Systems - Review of Systems Constitutional: denies: Chills, Fever EENT: No symptoms reported Cardiovascular: denies: Chest pain, Palpitations, Heart racing Respiratory: See HPI Gastrointestinal: See HPI Genitourinary: No symptoms reported Female Genitourinary: No symptoms reported Musculoskeletal: No symptoms reported Skin: No symptoms reported Hematologic/Lymphatic: No symptoms reported Neurological/Psychological: No symptoms reported Physical Exam - Vital signs Vitals: Temp Pulse Resp BP Pulse Ox 99.5 F 105 H 20 128/65 H 100 04/14/18 12:55 04/14/18 12:55 04/14/18 12:55 04/14/18 12:55 04/14/18 12:55 Notes: Physical exam: GENERAL: Patient is alert and oriented x3, no acute distress. She appears well. HEAD: Atraumatic, normocephalic. EYES: Pupils equal round and reactive to light, extraocular movements intact, sclera anicteric, conjunctiva are normal. ENT: TMs normal, nares patent, oropharynx clear without exudates. Moist mucous membranes. NECK: Normal range of motion, supple without obvious mass or JVD. LUNGS: Breath sounds clear to auscultation bilaterally and equal. No wheezes rales or rhonchi. HEART: Regular rate and rhythm without murmurs, rubs or gallops. ABDOMEN: Soft, normoactive bowel sounds. No tenderness to palpation. No guarding, no rebound. No masses appreciated. EXTREMITIES: Normal range of motion, no pitting or edema. No clubbing or cyanosis. NEUROLOGICAL: Cranial nerves II through XII grossly intact. Normal speech, moving all extremities. PSYCH: Normal mood, normal affect. SKIN: Warm, Dry, normal turgor, no rashes or lesions noted. Course - Vital Signs Vital signs: Temp Pulse Resp BP Pulse Ox 98.5 F 99 20 120/80 100 04/14/18 16:32 04/14/18 16:32 04/14/18 12:55 04/14/18 16:32 04/14/18 16:32 - Laboratory Result Diagrams: 04/14/18 13:35 04/14/18 13:35 Laboratory results interpreted by me: 04/14/18 13:35 Urine Urobilinogen 2.0 H Ur Leukocyte Esterase TRACE H - Diagnostic Test Radiology reviewed: Image reviewed, Reports reviewed - Chest x-ray shows no infiltrates Discharge - Discharge Clinical Impression: Upper respiratory infection Condition: Stable Disposition: HOME, SELF-CARE Additional Instructions: As we discussed, the chest x-ray showed no evidence of pneumonia which is good. The test was negative and it tends to be a very sensitive test. Your other labs look quite good today. I would like you to take the inhaler: 2 puffs every 6 hours as needed for shortness of breath. Take the Mucinex to keep your secretions moist. Also, use simply saline nose spray twice a day to keep the nasal mucosa draining because your sinuses will heal faster that way. I would like you to follow-up with Dr. Davidson in a few days: He will be able to see all the tests run today. Return to the emergency room for any problems. Prescriptions: Guaifenesin [Mucinex] 600 mg PO BID #14 tablet.sa Forms: Return to Work Referrals: MOJGAN VASQUEZ MD [Primary Care Provider] - Follow up in 3-5 days
[2018-04-14] MEDS ORDERED: ALBUTEROL SULFATE HFA (90 MCG/PUFF) 8 GM MDI (1 MDI/ER DISP) IH SCH (16:30)
[2018-04-14 16:39] VITALS: BP 120/80
== END 2018-04-14 16:39 | disposition home or self-care (01) ==
LOC: ER 12:51
DX: J06.9 Acute upper respiratory infection, unspecified (principal); J45.909 Unspecified asthma, uncomplicated; R05 Cough; R10.30 Lower abdominal pain, unspecified; Z87.42 Personal history of other diseases of the female genital tract; Z88.1 Allergy status to other antibiotic agents; Z88.8 Allergy status to other drugs, medicaments and biological substances
CPT/HCPCS: 99283; 36415; 87210; 83690; 85025; 81025; 80053; 81001; 87491; 87591; 87804; 71046; J3490

== ENCOUNTER 2018-04-19 14:47 | Emergency (ER) | payer SELFPAY ==
--- NOTE | 2018-04-19 18:14 | ER Document Report ---
HPI - HPI Time Seen by Provider: 04/19/18 16:25 Pain Level: 0 Notes: Patient is a 23-year-old female who presents with chief complaint of sore throat and productive cough. She states that she is taking Mucinex with minimal relief. Denies any fever, chills, nausea or vomiting. - EENT EENT: REPORTS: Sore Throat - RESPIRATORY Respiratory: REPORTS: Coughing - REPRODUCTIVE Reproductive: DENIES: : Past Medical History - General Information source: Patient - Social History Smoking Status: Never Smoker Chew tobacco use (# tins/day): No Frequency of alcohol use: None Drug Abuse: None Family History: CAD - mother, enlarged heart; father states his cardiac history started after his dialysis, CVA, DM, Hyperlipidemia, Hypertension - mother, Other - p. aunt recently passed from [place] at 45 years old, father with kidney problems Patient has suicidal ideation: No Patient has homicidal ideation: No - Past Medical History Cardiac Medical History: Denies: Hx Heart Attack, Hx Hypertension Pulmonary Medical History: Reports: Hx Asthma - ON INHALER, USES ABOUT ONCE A MONTH Neurological Medical History: Reports: Hx Migraine. Denies: Hx Cerebrovascular Accident, Hx Seizures Renal/ Medical History: Reports: Hx Ovarian Cysts. Denies: Hx Ectopic , Hx Peritoneal Dialysis, Hx Pelvic Inflammatory Disease GI Medical History: Reports: Hx Gastritis. Denies: Hx Hepatitis, Hx Hiatal Hernia, Hx Ulcer Infectious Medical History: Denies: Hx Hepatitis Past Surgical History: Reports: Hx Gynecologic Surgery - Laparoscopic surgery for diagnosis of endometriosis. Denies: Hx Hysterectomy, Hx Mastectomy, Hx Open Heart Surgery, Hx Pacemaker - Immunizations Immunizations up to date: Yes Hx Diphtheria, Pertussis, Tetanus Vaccination: Yes Vertical Provider Document - CONSTITUTIONAL Notes: PHYSICAL EXAMINATION: GENERAL: Well-appearing, well-nourished and in no acute distress. HEAD: Atraumatic, normocephalic. EYES: Pupils equal round extraocular movements intact, conjunctiva are normal. ENT: Nares patent, no tonsillar swelling or exudates noted. NECK: Normal range of motion, no cervical lymphadenopathy. LUNGS: No respiratory distress, lung sounds clear to auscultation bilaterally. Musculoskeletal: Normal range of motion NEUROLOGICAL: Normal speech, normal gait. PSYCH: Normal mood, normal affect. SKIN: Warm, Dry, normal turgor, no rashes or lesions noted. - INFECTION CONTROL TRAVEL OUTSIDE OF THE [place] IN LAST 30 DAYS: No Course - Re-evaluation Re-evalutation: Rapid strep is negative. Discussed with patient that throat culture pending. Will start patient on prednisone and Tessalon Perles. Patient verbalizes understanding and agreement with plan. - Vital Signs Vital signs: Temp Pulse Resp BP Pulse Ox 99.1 F 77 16 129/75 H 100 04/19/18 15:06 04/19/18 15:06 04/19/18 15:06 04/19/18 15:06 04/19/18 15:06 Discharge - Discharge Clinical Impression: Viral URI with cough Condition: Stable Disposition: HOME, SELF-CARE Additional Instructions: Your symptoms are most likely due to a viral infection it should resolve over the next 7-14 days. You should take [id number] guanfacine per bottle instructions to help thin the mucus. For nasal congestion: I would recommend that you get [id number] oxymetazoline also known is afrin. Use only per bottle instructions and be sure to never use this for more than 3 days if you can develop severe rebound congestion. You may also use tylenol or ibuprofen as needed for aches and thorat discomfort. Please be sure to drink plenty of fluids and get rest. Return to the emergency department he began having difficulty breathing, chest pain, persistent vomiting, or any other symptoms that are concerning to you. Prescriptions: Benzonatate [Tessalon Perle 100 mg Capsule] 100 mg PO Q8HP PRN #20 cap PRN Reason: Prednisone [Deltasone 20 mg Tablet] 3 tab PO DAILY 5 Days #15 tablet Forms: Return to Work Referrals: MOJGAN VASQUEZ MD [Primary Care Provider] - Follow up as needed
[2018-04-19 18:41] VITALS: BP 118/77
== END 2018-04-19 18:41 | disposition home or self-care (01) ==
LOC: ER 14:47
DX: J06.9 Acute upper respiratory infection, unspecified (principal)
CPT/HCPCS: 87070; 87880; 99283

== ENCOUNTER 2018-05-29 09:22 | Emergency (ER) | payer SELFPAY ==
--- NOTE | 2018-05-29 10:00 | ER Document Report ---
ED Medical Screen (RME) - General Chief Complaint: Abdominal Pain Stated Complaint: ABDOMINAL PAIN Time Seen by Provider: 05/29/18 09:55 Primary Care Provider: MOJGAN VASQUEZ MD [Primary Care Provider] - Follow up as needed TRAVEL OUTSIDE OF THE [place] IN LAST 30 DAYS: No - HPI Patient complains to provider of: Abdo pain Notes: 05/29/18 09:59 Patient is here with complaints of left lower abdominal pain. Patient states the pain is been present for the last few days. Last normal menstrual cycle was on the fifth of this month. She has had nausea, but denies vomiting. No dysuria or hematuria. She does complain of some creamy vaginal discharge. She has a history of endometriosis. She has had a laparoscopy in the past. Exam Nontoxic, no distress. Tenderness to palpation of the left lower quadrant on limited triage abdominal exam. Plan CBC, CMP, lipase, urine, urine , gonorrhea chlamydia, wet prep. If imaging is indicated, the provider in the back will order this. An initial examination was made on the patient as part of the triage process, and it was determined a more comprehensive evaluation was necessary. Initial lab s were ordered and patient was transferred to another provider in the ED who assumed care and finished evaluation and plan. - Related Data Allergies/Adverse Reactions: ciprofloxacin [From Cipro] Allergy (Verified 05/29/18 09:31) Hives ciprofloxacin HCl [From Cipro] Allergy (Verified 05/29/18 09:31) Hives metoclopramide HCl [From Reglan] Allergy (Verified 05/29/18 09:31) anxious prochlorperazine edisylate [From Compazine] Allergy (Verified 05/29/18 09:31) prochlorperazine maleate [From Compazine] Allergy (Verified 05/29/18 09:31) Past Medical History - Social History Frequency of alcohol use: None Drug Abuse: None - Past Medical History Cardiac Medical History: Denies: Hx Heart Attack, Hx Hypertension Pulmonary Medical History: Reports: Hx Asthma - ON INHALER, USES ABOUT ONCE A MO [facility] Neurological Medical History: Reports: Hx Migraine. Denies: Hx Cerebrovascular Accident, Hx Seizures Renal/ Medical History: Reports: Hx Ovarian Cysts. Denies: Hx Ectopic , Hx Peritoneal Dialysis, Hx Pelvic Inflammatory Disease GI Medical History: Reports: Hx Gastritis. Denies: Hx Hepatitis, Hx Hiatal Kenrick ia, Hx Ulcer Infectious Medical History: Denies: Hx Hepatitis Past Surgical History: Reports: Hx Gynecologic Surgery - Laparoscopic surgery for diagnosis of endometriosis. Denies: Hx Hysterectomy, Hx Mastectomy, Hx Open Heart Surgery, Hx Pacemaker - Immunizations Immunizations up to date: Yes Hx Diphtheria, Pertussis, Tetanus Vaccination: Yes Physical Exam - Vital signs Vitals: Temp Pulse Resp BP Pulse Ox 98.6 F 80 18 120/88 H 98 05/29/18 09:38 05/29/18 09:38 05/29/18 09:38 05/29/18 09:38 05/29/18 09:38 Course - Vital Signs Vital signs: Temp Pulse Resp BP Pulse Ox 98.6 F 80 18 120/88 H 98 05/29/18 09:38 05/29/18 09:38 05/29/18 09:38 05/29/18 09:38 05/29/18 09:38 Doctor's Discharge - Discharge Referrals: MOJGAN VASQUEZ MD [Primary Care Provider] - Follow up as needed
[2018-05-29 10:13] LABS: ABSOLUTE BASOPHILS # (AUTO) 0.1 10^3/uL (0.0-0.2); ABSOLUTE EOSINOPHILS # (AUTO) 0.1 10^3/uL (0.0-0.6); ABSOLUTE LYMPHOCYTES (AUTO) 2.5 10^3/uL (0.5-4.7); ABSOLUTE MONOCYTES (AUTO) 0.4 10^3/uL (0.1-1.4); ABSOLUTE NEUT (AUTO) 3.2 10^3/uL (1.7-8.2); BASOPHILS % (AUTO) 0.8 % (0-2); HEMATOCRIT 37.6 % (36.0-47.0); HEMOGLOBIN 12.6 g/dL (12.0-15.5); LYMPHOCYTES % (AUTO) 40.2 % (13-45); MEAN CORPUSCULAR HEMOGLOBIN 29.5 pg (27.0-33.4); MEAN CORPUSCULAR HGB CONC 33.6 g/dL (32.0-36.0); MEAN CORPUSCULAR VOLUME 88 fl (80-97); MONOCYTES % (AUTO) 6.8 % (3-13); PLATELET COUNT 372 10^3/uL (150-450); RED BLOOD COUNT 4.28 10^6/uL (3.72-5.28); RED CELL DISTRIBUTION WIDTH 14.1 % (11.5-14.0); SEGMENTED NEUTROPHILS % (AUTO) 51.2 % (42-78); TOTAL CELLS COUNTED % (AUTO) 100 %; WHITE BLOOD COUNT 6.2 10^3/uL (4.0-10.5)
[2018-05-29 10:31] LABS: APPEARANCE,URINE CLEAR; BILIRUBIN,URINE NEGATIVE (NEGATIVE); COLOR,URINE YELLOW; GLUCOSE, URINE NEGATIVE (NEGATIVE); KETONES,URINE NEGATIVE (NEGATIVE); LEUKOCYTE ESTERASE,URINE NEGATIVE (NEGATIVE); NITRITE,URINE NEGATIVE (NEGATIVE); PROTEIN,URINE NEGATIVE (NEGATIVE); URINE SPECIFIC GRAVITY 1.019; UROBILINOGEN,URINE NEGATIVE mg/dL (<2.0)
[2018-05-29 10:41] LABS: ALANINE AMINOTRANSFERASE 26 U/L (9-52); ALBUMIN 3.9 g/dL (3.5-5.0); ALKALINE PHOSPHATASE 61 U/L (38-126); ANION GAP 6 (5-19); ASPARTATE AMINO TRANSFERASE 22 U/L (14-36); BILIRUBIN,DIRECT 0.3 mg/dL (0.0-0.4); BILIRUBIN,TOTAL 0.5 mg/dL (0.2-1.3); BLOOD UREA NITROGEN 9 mg/dL (7-20); CALCIUM 9.9 mg/dL (8.4-10.2); CARBON DIOXIDE 31 mmol/L (22-30); CHLORIDE 104 mmol/L (98-107); GLUCOSE 107 mg/dL (75-110); LIPASE 46.3 U/L (23-300); POTASSIUM 3.9 mmol/L (3.6-5.0); SODIUM 140.5 mmol/L (137-145); TOTAL PROTEIN 7.3 g/dL (6.3-8.2)
--- NOTE | 2018-05-29 10:54 | ER Document Report ---
ED General - General Chief Complaint: Abdominal Pain Stated Complaint: ABDOMINAL PAIN Time Seen by Provider: 05/29/18 09:55 Primary Care Provider: PASTORA MENDOZA DO [ACTIVE STAFF] - Follow up in 3-5 days MOJGAN VASQUEZ MD [Primary Care Provider] - Follow up in 3-5 days Mode of Arrival: Ambulatory Information source: Patient TRAVEL OUTSIDE OF THE [place] IN LAST 30 DAYS: No - HPI Notes: 23-year-old female with a medical history of endometriosis presents for evaluation of left lower quadrant abdominal pain with nausea and "creamy vaginal discharge" for the last 3 days, pain, and goes, has become progressively worse. Patient has been sexually active without using any form of contraceptive. Last menstrual period was May 18 of this month. 0 para 0. Denies fevers, chills, chest pain,palpitations, shortness of breath, dyspnea, nausea, vomiting, diarrhea, abdominal pain, hematuria,blurred vision, double vision, loss of vision, speech changes, LH, dizziness, syncope, headaches, wheezing, ST, URI, neck pain, weakness, bowel or bladder dysfunction, saddle anesthesia, numbness or tingling in bilateral upper or lower extremities equally, muscle paralysis, weakness in bilateral upper or lower extremities equally or rash. - Related Data Allergies/Adverse Reactions: ciprofloxacin [From Cipro] Allergy (Verified 05/29/18 09:31) Hives ciprofloxacin HCl [From Cipro] Allergy (Verified 05/29/18 09:31) Hives metoclopramide HCl [From Reglan] Allergy (Verified 05/29/18 09:31) anxious prochlorperazine edisylate [From Compazine] Allergy (Verified 05/29/18 09:31) prochlorperazine maleate [From Compazine] Allergy (Verified 05/29/18 09:31) Past Medical History - General Information source: Patient - Social History Smoking Status: Never Smoker Frequency of alcohol use: None Drug Abuse: None Family History: CAD - mother, enlarged heart; father states his cardiac history started after his dialysis, CVA, DM, Hyperlipidemia, Hypertension - mother, Other - p. aunt recently passed from [place] at 45 years old, father with kidney problems Patient has suicidal ideation: No Patient has homicidal ideation: No - Past Medical History Cardiac Medical History: Denies: Hx Heart Attack, Hx Hypertension Pulmonary Medical History: Reports: Hx Asthma - ON INHALER, USES ABOUT ONCE A MONTH Neurological Medical History: Reports: Hx Migraine. Denies: Hx Cerebrovascular Accident, Hx Seizures Renal/ Medical History: Reports: Hx Ovarian Cysts. Denies: Hx Ectopic , Hx Peritoneal Dialysis, Hx Pelvic Inflammatory Disease GI Medical History: Reports: Hx Gastritis. Denies: Hx Hepatitis, Hx Hiatal Hernia, Hx Ulcer Infectious Medical History: Denies: Hx Hepatitis Past Surgical History: Reports: Hx Gynecologic Surgery - Laparoscopic surgery for diagnosis of endometriosis. Denies: Hx Hysterectomy, Hx Mastectomy, Hx Open Heart Surgery, Hx Pacemaker - Immunizations Immunizations up to date: Yes Hx Diphtheria, Pertussis, Tetanus Vaccination: Yes Review of Systems - Review of Systems Constitutional: No symptoms reported EENT: No symptoms reported Cardiovascular: No symptoms reported Respiratory: No symptoms reported Gastrointestinal: No symptoms reported Genitourinary: See HPI Female Genitourinary: See HPI Musculoskeletal: No symptoms reported Skin: No symptoms reported Hematologic/Lymphatic: No symptoms reported Neurological/Psychological: No symptoms reported Physical Exam - Vital signs Vitals: Temp Pulse Resp BP Pulse Ox 98.6 F 80 18 120/88 H 98 05/29/18 09:38 05/29/18 09:38 05/29/18 09:38 05/29/18 09:38 05/29/18 09:38 - Notes Notes: PHYSICAL EXAMINATION: GENERAL: Well-appearing, well-nourished and in no acute distress. HEAD: Atraumatic, normocephalic. EYES: Pupils equal round and reactive to light, extraocular movements intact, conjunctiva are normal. ENT: Nares patent, oropharynx clear without exudates. Moist mucous membranes. NECK: Normal range of motion, supple without lymphadenopathy LUNGS: Breath sounds clear to auscultation bilaterally and equal. No wheezes rales or rhonchi. HEART: Regular rate and rhythm without murmurs ABDOMEN: Soft, nontender, nondistended abdomen. No guarding, no rebound. No masses appreciated. : External genitalia without erythema, exudate or discharge. Vaginal vault is without discharge. Cervix is of normal color without lesion. There is no bleeding noted. Uterus is noted to be of normal size and nontender. No cervical motion tenderness is seen. No masses are palpated. scant blood in the vaginal vault without clots, cervical os closed. Musculoskeletal: Normal range of motion, no pitting or edema. No cyanosis. NEUROLOGICAL: Cranial nerves grossly intact. Normal speech, normal gait. Normal sensory, motor exams PSYCH: Normal mood, normal affect. SKIN: Warm, Dry, normal turgor, no rashes or lesions noted. Course - Re-evaluation Re-evalutation: 05/29/18 14:02 23-year-old female presents for evaluation of left lower quadrant abdominal pain with vaginal discharge, patient did show that she has BV, will treat her appropriately with Flagyl she was on pending. Patient wants to leave prior to ultrasound being contacted ultrasound multiple times, no response, nursing munitions handler supervisor has been contacted. no fevers or chills. u/s transvaginal negative for any acute findings per radiology. follow up with soaking pit operator within 3-5 days for re evaluation. Wet mount showed that patient has bacterial vaginosis will start on Flagyl, do not drink while taking medication will cause vomiting. Increase oral hydration.Presentation of generalized, intermittent abdominal pain. Abdominal exam is benign without any focal tenderness. Vitals are normal at the time of arrival. Laboratories are unremarkable without evidence of cystitis, , or leukocytosis. Patient is overall very well in appearance. Based on clinical history and examination I do not suspect an acute appendicitis, tubo-ovarian abscess, related pathology, pelvic inflammatory disease, mesenteric ischemia, or pyelonephritis. Pelvic exam without cervical motion tenderness or focal adnexal tenderness. Will discharge home with return precautions and followup recommendations. - Vital Signs Vital signs: Temp Pulse Resp BP Pulse Ox 98.6 F 91 13 127/92 H 98 05/29/18 15:48 05/29/18 15:48 05/29/18 15:48 05/29/18 15:48 05/29/18 15:48 - Laboratory Result Diagrams: 05/29/18 10:02 05/29/18 10:02 Laboratory results interpreted by me: 05/29/18 05/29/18 10:02 10:02 RDW 14.1 H Carbon Dioxide 31 H Discharge - Discharge Clinical Impression: Bacterial vaginosis, Pelvic pain Condition: Stable Disposition: HOME, SELF-CARE Instructions: Abdominal Pain ([facility]), Pelvic Pain ([facility]), Vaginosis, Bacterial ([facility]) Additional Instructions: Your CBC, CMP and urinalysis were all within normal limits. He did test positive for bacterial vaginosis, this is not an STD take drink alcohol taking medication to cause nausea vomiting. Chlamydia and gonorrhea are both negative return immediately for any new or worsening symptoms. Ultrasound was negative for any ectopic , ovarian torsion, ovarian rupture, abscess, free fluid etc. Follow-up with JEWELRY DESIGNER and PCP within the next 24-48 hours. call tomorrow to make followup appointment. Return to the ED if any of her symptoms become worse such as fever, worsening pain, vomiting, extension Prescriptions: Metronidazole [Flagyl 500 mg Tablet] 500 mg PO Q12H #14 tablet Forms: Return to Work Referrals: PASTORA MENDOZA DO [ACTIVE STAFF] - Follow up in 3-5 days MOJGAN VASQUEZ MD [Primary Care Provider] - Follow up in 3-5 days
[2018-05-29 11:41] LABS: BACTERIA (WET MOUNT) 3+ BACTERIA SEEN; EPITHELIALS (WET MOUNT) 3+ EPITHELIALS SEEN; T.VAGINALIS (WET MOUNT) NO TRICHOMONAS SEEN; WBCS (WET MOUNT) RARE WBCS SEEN; YEAST (WET MOUNT) NO YEAST SEEN
[2018-05-29 11:53] LABS: CHLAM PCR NOT DETECTED (NOT DETECT); GON PCR NOT DETECTED (NOT DETECT)
[2018-05-29 15:09] LABS: CHLAM PCR NOT DETECTED (NOT DETECT); GON PCR NOT DETECTED (NOT DETECT)
--- NOTE | 2018-05-29 15:25 | RADIOLOGY REPORT (SQ) ---
EXAM DESCRIPTION: U/S NON OB PEL TV W/DOPPLER COMPLETED DATE/TIME: 05/29/2018 3:16 pm REASON FOR STUDY: left pelvic pain x 3 days, worse w/ time COMPARISON: 06/17/2010. TECHNIQUE: Dynamic and static grayscale images acquired of the pelvis via transvaginal approach and recorded on PACS. Additional selected color Doppler and spectral images recorded. LIMITATIONS: None. FINDINGS: UTERUS: Contour normal. No mass. ENDOMETRIAL STRIPE: No focal or generalized thickening. No masses. CERVIX: No nabothian cysts. RIGHT OVARY AND DOPPLER: Normal size. No worrisome masses. Normal arterial vascular flow without evid ence for torsion. LEFT OVARY AND DOPPLER: Normal size. No worrisome masses. Normal arterial vascular flow without evide nce for torsion. FREE FLUID: Trace free fluid. OTHER: No other significant finding. MEASUREMENTS: UTERUS: 3.0 x 3.5 x 7.6 cm. ENDOMETRIAL STRIPE: 2 mm. RIGHT OVARY: 1.8 x 2.4 x 2.6 cm. LEFT OVARY: 1.5 x 2.1 x 2.4 cm. IMPRESSION: NORMAL TRANSVAGINAL PELVIC ULTRASOUND. TECHNICAL DOCUMENTATION: JOB ID: [id number] [employer] ([place])- All Rights Reserved Rev Reading location - IP/workstation name: [email or web address]
[2018-05-29 15:51] VITALS: BP 127/92
== END 2018-05-29 15:51 | disposition home or self-care (01) ==
LOC: ER 09:22
DX: N76.0 Acute vaginitis (principal); B96.89 Other specified bacterial agents as the cause of diseases classified elsewhere; R11.0 Nausea; J45.909 Unspecified asthma, uncomplicated; Z87.42 Personal history of other diseases of the female genital tract; Z88.1 Allergy status to other antibiotic agents; Z88.8 Allergy status to other drugs, medicaments and biological substances
CPT/HCPCS: 36415; 76830; 80053; 81001; 81025; 83690; 85025; 87210; 87491; 87591; 93976; 99284

== ENCOUNTER 2018-07-08 08:25 | Emergency (ER) | payer SELFPAY ==
[2018-07-08] MEDS ORDERED: FLUCONAZOLE 100 MG TABLET PO ONE (09:24)
--- NOTE | 2018-07-08 09:29 | ER Document Report ---
ED General - General Chief Complaint: Vaginal Discharge Stated Complaint: VAGINAL IRRITATION,ABDOMINAL PAIN Time Seen by Provider: 07/08/18 08:45 Mode of Arrival: Ambulatory Information source: Patient, [facility] Records Notes: 23-year-old female with migraines, asthma, endometriosis presents with complaint of vaginal irritation that has been ongoing for 3 days. Patient reports that she was recently diagnosed with bacterial vaginosis and only took 4 days of her Flagyl approximately 1 week ago. Patient states for 3 days she has had itching and she thinks this is due to a new soap. She denies any vaginal discharge, dysuria, hematuria. Her last menstrual period was May 19, 2018. She is currently sexually active. She denies any history of STD. TRAVEL OUTSIDE OF THE [place] IN LAST 30 DAYS: No - HPI Onset: Other Onset/Duration: Gradual, Persistent Quality of pain: No pain Severity: None Associated symptoms: denies: Body/muscle aches, Chest pain, Fever, Leg swelling, Nausea, Vomiting, Shortness of breath Exacerbated by: Denies Relieved by: Denies Similar symptoms previously: No Recently seen / treated by doctor: Yes - Related Data Allergies/Adverse Reactions: ciprofloxacin [From Cipro] Allergy (Verified 07/08/18 08:29) Hives ciprofloxacin HCl [From Cipro] Allergy (Verified 07/08/18 08:29) Hives metoclopramide HCl [From Reglan] Allergy (Verified 07/08/18 08:29) anxious prochlorperazine edisylate [From Compazine] Allergy (Verified 07/08/18 08:29) prochlorperazine maleate [From Compazine] Allergy (Verified 07/08/18 08:29) Past Medical History - General Information source: Patient Last Menstrual Period: 06/18/18 - Social History Smoking Status: Never Smoker Frequency of alcohol use: None Drug Abuse: None Lives with: Family Family History: CAD - mother, enlarged heart; father states his cardiac history started after his dialysis, CVA, DM, Hyperlipidemia, Hypertension - mother, Other - p. aunt recently passed from [place] at 45 years old, father with kidney problems Patient has suicidal ideation: No Patient has homicidal ideation: No - Past Medical History Cardiac Medical History: Denies: Hx Heart Attack, Hx Hypertension Pulmonary Medical History: Reports: Hx Asthma - ON INHALER, USES ABOUT ONCE A MONTH Neurological Medical History: Reports: Hx Migraine. Denies: Hx Cerebrovascular Accident, Hx Seizures Renal/ Medical History: Reports: Hx Ovarian Cysts. Denies: Hx Ectopic , Hx Peritoneal Dialysis, Hx Pelvic Inflammatory Disease GI Medical History: Reports: Hx Gastritis. Denies: Hx Hepatitis, Hx Hiatal Hernia, Hx Ulcer Infectious Medical History: Denies: Hx Hepatitis Past Surgical History: Reports: Hx Gynecologic Surgery - Laparoscopic surgery for diagnosis of endometriosis. Denies: Hx Hysterectomy, Hx Mastectomy, Hx Open Heart Surgery, Hx Pacemaker - Immunizations Immunizations up to date: Yes Hx Diphtheria, Pertussis, Tetanus Vaccination: Yes Review of Systems - Review of Systems Notes: REVIEW OF SYSTEMS: CONSTITUTIONAL : Denies fever, chills, or sweats. Denies recent illness. Denies weight loss, recent hospitalizations. EENT: Denies visual changes, eye pain. Denies sore throat, oral lesions, difficulty swallowing. CARDIOVASCULAR: Denies chest pain. Denies palpitations. Denies lower extremity edema. RESPIRATORY: Denies cough. Denies shortness of breath, wheezing. GASTROINTESTINAL: Denies abdominal pain or distention. Denies nausea, vomiting, or diarrhea. Denies blood in vomitus, stools, or per rectum. Denies black, tarry stools. Denies constipation. GENITOURINARY: Denies difficulty urinating, painful urination, frequency, blood in urine, or vaginal discharge. MUSCULOSKELETAL: Denies back or neck pain or stiffness. Denies joint pain or swelling. SKIN: Denies rash, lesions or sores. HEMATOLOGIC : Denies easy bruising or bleeding. LYMPHATIC: Denies swollen glands. NEUROLOGICAL: Denies confusion or altered mental status. Denies loss of consciousness. Denies dizziness or lightheadedness. Denies headache. Denies weakness or paralysis. Denies problems difficulty with ambulation, slurred speech. Denies sensory loss, numbness, or tingling. Denies seizures. PSYCHIATRIC: Denies anxiety or stress. Denies depression, suicidal ideation, or homicidal ideation. Denies visual or auditory hallucinations. Physical Exam - Vital signs Vitals: Temp Pulse Resp BP Pulse Ox 98.2 F 98 18 116/75 98 07/08/18 08:35 07/08/18 08:35 07/08/18 08:35 07/08/18 08:35 07/08/18 08:35 - Notes Notes: PHYSICAL EXAMINATION: GENERAL: Well-appearing, well-nourished and in no acute distress. HEAD: Atraumatic, normocephalic. EYES: Pupils equal round and reactive to light, extraocular movements intact, conjunctiva are normal. ENT: Nares patent, oropharynx clear without exudates. Moist mucous membranes. NECK: Normal range of motion, supple without lymphadenopathy LUNGS: Breath sounds clear to auscultation bilaterally and equal. No wheezes rales or rhonchi. HEART: Regular rate and rhythm without murmurs ABDOMEN: Soft, nontender, nondistended abdomen. No guarding, no rebound. No masses appreciated. Female : Pelvic exam; External genitalia erythematous, tender, beefy. Speculum exam with thin white discharge. Vaginal wall unremarkable. Os closed. No cervical motion tenderness. No adnexal tenderness or masses appreciated. Swabs obtained for gonorrhea, chlamydia and wet prep. Musculoskeletal: Normal range of motion, no pitting or edema. No cyanosis. NEUROLOGICAL: Cranial nerves grossly intact. Normal speech, normal gait. Normal sensory, motor exams PSYCH: Normal mood, normal affect. SKIN: Warm, Dry, normal turgor, no rashes or lesions noted. Course - Re-evaluation Re-evalutation: 07/08/18 10:25 Laboratory 07/08/18 07/08/18 08:54 09:06 Urine Color YELLOW Urine Appearance TURBID Urine pH 5.0 Ur Specific [place] 1.031 Urine Protein 30 H Urine Glucose (UA) NEGATIVE Urine Ketones TRACE H Urine Blood MODERATE H Urine Nitrite NEGATIVE Urine Bilirubin NEGATIVE Urine Urobilinogen 2.0 H Ur Leukocyte Esterase SMALL H Urine Bacteria (Auto) 2+ Squamous Epi Cells Auto 4 Amorphous Sediment Auto 1+ Urine Mucus (Auto) MANY Urine Ascorbic Acid NEGATIVE Urine HCG, Qual NEGATIVE Trichomonas (Wet Prep) NO TRICHOMONAS SEEN Vaginal WBC FEW WBCS SEEN Vaginal Yeast NO YEAST SEEN 07/08/18 10:34 23-year-old female presents with vaginal irritation for 3 days. Vital signs reviewed and within normal limits. Patient does not appear toxic or dehydrated. She is in no acute distress. Pelvic exam was performed and significant for erythema of the labia, white discharge. No trichomonas, bacterial vaginosis noted. Gonorrhea and chlamydia pending. Patient is not . Patient did receive Diflucan and be provided a prescription for Monistat. Patient was evaluated and treated as appropriate for the patient's presenting symptoms and complaint, with consideration of any critical or life threatening conditions that may be associated with their obtained history and exam as noted above. All results were discussed with patient. Patient provided the opportunity to ask questions, and express concerns. Patient was educated on treatments based on their presumed diagnosis as noted above. At this time we will discharge the patient with return precautions and follow-up recommendations. Verbal discharge instructions given a the bedside. Medication warnings reviewed. Patient is in agreement with this plan and has verbalized understanding of return precautions. After careful consideration I feel that that patient can be safely discharged from the emergency department, they were advised to followup with a primary care physician in 2-3 days. Dictation on this chart was performed using voice recognition software and may result in unintended grammatical, spelling, syntax or errors. - Vital Signs Vital signs: Temp Pulse Resp BP Pulse Ox 98.2 F 98 18 116/75 98 07/08/18 08:35 07/08/18 08:35 07/08/18 08:35 07/08/18 08:35 07/08/18 08:35 - Laboratory Laboratory results interpreted by me: 07/08/18 08:54 Urine Protein 30 H Urine Ketones TRACE H Urine Blood MODERATE H Urine Urobilinogen 2.0 H Ur Leukocyte Esterase SMALL H Discharge - Discharge Clinical Impression: Vulvovaginitis Condition: Good Disposition: HOME, SELF-CARE Instructions: Vaginitis ([facility]) Additional Instructions: Follow up with your [id number] hours for further care or return to the ED IMMEDIATELY if symptoms worsen or you have any concerns. If you cannot afford to follow up with your primary care physician a list of low cost clinics have been provided at the end of your discharge papers as well. Most prescribed medications have multiple side effects. The safest thing to do is when filling your prescription speak to your pharmacist regarding possible interactions with your normal home medications and over the counter medications such as Ibuprofen, Tylenol, Benadryl. If you experience any symptoms that cause you discomfort or concern you should discontinue the medication immediately and return to the emergency room or call your primary care physician. Prescriptions: Miconazole Nitrate [Monistat-7 Vaginal Cream 45 Gm Tube] 1 applic PV QHS #1 tube
[2018-07-08 09:46] LABS: AMORPHOUS SEDIMENT,URINE 1+ /HPF; APPEARANCE,URINE TURBID; BILIRUBIN,URINE NEGATIVE (NEGATIVE); COLOR,URINE YELLOW; GLUCOSE, URINE NEGATIVE (NEGATIVE); KETONES,URINE TRACE mg/dL (NEGATIVE); LEUKOCYTE ESTERASE,URINE SMALL (NEGATIVE); NITRITE,URINE NEGATIVE (NEGATIVE); PROTEIN,URINE 30 mg/dL (NEGATIVE); URINE SPECIFIC GRAVITY 1.031
[2018-07-08 09:56] LABS: T.VAGINALIS (WET MOUNT) NO TRICHOMONAS SEEN; WBCS (WET MOUNT) FEW WBCS SEEN; YEAST (WET MOUNT) NO YEAST SEEN
[2018-07-08 10:35] VITALS: BP 118/69
[2018-07-08 11:27] LABS: CHLAM PCR NOT DETECTED (NOT DETECT); GON PCR NOT DETECTED (NOT DETECT)
== END 2018-07-08 10:40 | disposition home or self-care (01) ==
LOC: ER 08:25
DX: N76.0 Acute vaginitis (principal); Z88.3 Allergy status to other anti-infective agents
CPT/HCPCS: 81001; 81025; 87210; 87491; 87591; 99283

== ENCOUNTER 2018-08-04 07:55 | Emergency (ER) | payer SELFPAY ==
[2018-08-04] MEDS ORDERED: ONDANSETRON 4 MG TAB.RAPDIS PO ONE (08:54)
--- NOTE | 2018-08-04 08:58 | ER Document Report ---
ED Medical Screen (RME) - General Chief Complaint: Vomiting Stated Complaint: VOMITING Time Seen by Provider: 08/04/18 08:54 Notes: Healthy 23-year-old female presents emergency department with chief complaint of nausea, chills, fever x2 days. Patient states that her symptoms started abruptly and she has not been able to hold anything down. She says when she attempts to eat or drink she becomes extremely nauseated and did vomit once. She also complains of weakness and fatigue. She is also complaining of rhinorrhea. She denies any headache or neck stiffness, sore throat or earache, shortness of breath or chest pain, abdominal pain, flank pain, urinary symptoms, abnormal vaginal discharge. LMP 07/20/2018. TRAVEL OUTSIDE OF THE [place] IN LAST 30 DAYS: No - Related Data Allergies/Adverse Reactions: ciprofloxacin [From Cipro] Allergy (Verified 08/04/18 07:56) Hives ciprofloxacin HCl [From Cipro] Allergy (Verified 08/04/18 07:56) Hives metoclopramide HCl [From Reglan] Allergy (Verified 08/04/18 07:56) anxious prochlorperazine edisylate [From Compazine] Allergy (Verified 08/04/18 07:56) prochlorperazine maleate [From Compazine] Allergy (Verified 08/04/18 07:56) Past Medical History - Past Medical History Cardiac Medical History: Denies: Hx Heart Attack, Hx Hypertension Pulmonary Medical History: Reports: Hx Asthma - ON INHALER, USES ABOUT ONCE A MONTH Neurological Medical History: Reports: Hx Migraine. Denies: Hx Cerebrovascular Accident, Hx Seizures Renal/ Medical History: Reports: Hx Ovarian Cysts. Denies: Hx Ectopic , Hx Peritoneal Dialysis, Hx Pelvic Inflammatory Disease GI Medical History: Reports: Hx Gastritis. Denies: Hx Hepatitis, Hx Hiatal Hernia, Hx Ulcer Infectious Medical History: Denies: Hx Hepatitis Past Surgical History: Reports: Hx Gynecologic Surgery - Laparoscopic surgery for diagnosis of endometriosis. Denies: Hx Hysterectomy, Hx Mastectomy, Hx Open Heart Surgery, Hx Pacemaker - Immunizations Immunizations up to date: Yes Hx Diphtheria, Pertussis, Tetanus Vaccination: Yes Physical Exam - Vital signs Vitals: Temp Pulse Resp BP Pulse Ox 98.5 F 97 18 120/71 100 08/04/18 07:58 08/04/18 07:58 08/04/18 07:58 08/04/18 07:58 08/04/18 07:58 Course - Vital Signs Vital signs: Temp Pulse Resp BP Pulse Ox 98.5 F 97 18 120/71 100 08/04/18 07:58 08/04/18 07:58 08/04/18 07:58 08/04/18 07:58 08/04/18 07:58
[2018-08-04 09:11] LABS: ABSOLUTE BASOPHILS # (AUTO) 0.1 10^3/uL (0.0-0.2); ABSOLUTE LYMPHOCYTES (AUTO) 1.2 10^3/uL (0.5-4.7); ABSOLUTE MONOCYTES (AUTO) 0.6 10^3/uL (0.1-1.4); ABSOLUTE NEUT (AUTO) 3.6 10^3/uL (1.7-8.2); EOSINOPHILS % (AUTO) 0.3 % (0-6); HEMATOCRIT 36.3 % (36.0-47.0); HEMOGLOBIN 12.1 g/dL (12.0-15.5); LYMPHOCYTES % (AUTO) 21.5 % (13-45); MEAN CORPUSCULAR HGB CONC 33.3 g/dL (32.0-36.0); MEAN CORPUSCULAR VOLUME 87 fl (80-97); MONOCYTES % (AUTO) 11.6 % (3-13); PLATELET COUNT 332 10^3/uL (150-450); RED BLOOD COUNT 4.15 10^6/uL (3.72-5.28); RED CELL DISTRIBUTION WIDTH 14.1 % (11.5-14.0); SEGMENTED NEUTROPHILS % (AUTO) 65.6 % (42-78); TOTAL CELLS COUNTED % (AUTO) 100 %; WHITE BLOOD COUNT 5.4 10^3/uL (4.0-10.5)
[2018-08-04 09:14] LABS: APPEARANCE,URINE SLIGHTLY-CLOUDY; BILIRUBIN,URINE NEGATIVE (NEGATIVE); COLOR,URINE YELLOW; GLUCOSE, URINE NEGATIVE (NEGATIVE); KETONES,URINE NEGATIVE (NEGATIVE); LEUKOCYTE ESTERASE,URINE NEGATIVE (NEGATIVE); NITRITE,URINE NEGATIVE (NEGATIVE); PROTEIN,URINE NEGATIVE (NEGATIVE); URINE SPECIFIC GRAVITY 1.028; UROBILINOGEN,URINE NEGATIVE mg/dL (<2.0)
[2018-08-04 09:25] LABS: ALANINE AMINOTRANSFERASE 25 U/L (9-52); ALBUMIN 4.3 g/dL (3.5-5.0); ALKALINE PHOSPHATASE 53 U/L (38-126); ANION GAP 9 (5-19); ASPARTATE AMINO TRANSFERASE 18 U/L (14-36); BILIRUBIN,DIRECT 0.1 mg/dL (0.0-0.4); BILIRUBIN,TOTAL 0.2 mg/dL (0.2-1.3); BLOOD UREA NITROGEN 12 mg/dL (7-20); CALCIUM 9.5 mg/dL (8.4-10.2); CARBON DIOXIDE 27 mmol/L (22-30); CHLORIDE 101 mmol/L (98-107); GLUCOSE 93 mg/dL (75-110); LIPASE 52.7 U/L (23-300); POTASSIUM 4.2 mmol/L (3.6-5.0); SODIUM 137.4 mmol/L (137-145); TOTAL PROTEIN 7.2 g/dL (6.3-8.2)
--- NOTE | 2018-08-04 09:50 | ER Document Report ---
ED General - General Chief Complaint: Vomiting Stated Complaint: VOMITING Time Seen by Provider: 08/04/18 08:54 Notes: Healthy 23-year-old female presents emergency department with chief complaint of nausea, chills, fever x2 days. Patient states that her symptoms started abruptly and she has not been able to hold anything down. She says when she attempts to eat or drink she becomes extremely nauseated and did vomit once. She also complains of weakness and fatigue. She is also complaining of rhinorrhea. She denies any headache or neck stiffness, sore throat or earache, shortness of breath or chest pain, abdominal pain, flank pain, urinary symptoms, abnormal vaginal discharge. LMP 07/20/2018. TRAVEL OUTSIDE OF THE [place] IN LAST 30 DAYS: No - Related Data Allergies/Adverse Reactions: ciprofloxacin [From Cipro] Allergy (Verified 08/04/18 07:56) Hives ciprofloxacin HCl [From Cipro] Allergy (Verified 08/04/18 07:56) Hives metoclopramide HCl [From Reglan] Allergy (Verified 08/04/18 07:56) anxious prochlorperazine edisylate [From Compazine] Allergy (Verified 08/04/18 07:56) prochlorperazine maleate [From Compazine] Allergy (Verified 08/04/18 07:56) Past Medical History - Social History Smoking Status: Never Smoker Chew tobacco use (# tins/day): No Frequency of alcohol use: None Drug Abuse: None Family History: CAD - mother, enlarged heart; father states his cardiac history started after his dialysis, CVA, DM, Hyperlipidemia, Hypertension - mother, Other - p. aunt recently passed from [place] at 45 years old, father with kidney problems Patient has suicidal ideation: No Patient has homicidal ideation: No - Past Medical History Cardiac Medical History: Denies: Hx Heart Attack, Hx Hypertension Pulmonary Medical History: Reports: Hx Asthma - ON INHALER, USES ABOUT ONCE A MONTH Neurological Medical History: Reports: Hx Migraine. Denies: Hx Cerebrovascular Accident, Hx Seizures Renal/ Medical History: Reports: Hx Ovarian Cysts. Denies: Hx Ectopic , Hx Peritoneal Dialysis, Hx Pelvic Inflammatory Disease GI Medical History: Reports: Hx Gastritis. Denies: Hx Hepatitis, Hx Hiatal Hernia, Hx Ulcer Infectious Medical History: Denies: Hx Hepatitis Past Surgical History: Reports: Hx Gynecologic Surgery - Laparoscopic surgery for diagnosis of endometriosis. Denies: Hx Hysterectomy, Hx Mastectomy, Hx Open Heart Surgery, Hx Pacemaker - Immunizations Immunizations up to date: Yes Hx Diphtheria, Pertussis, Tetanus Vaccination: Yes Review of Systems - Review of Systems Constitutional: See HPI EENT: No symptoms reported Cardiovascular: See HPI Respiratory: See HPI Gastrointestinal: See HPI Genitourinary: See HPI Female Genitourinary: See HPI Musculoskeletal: No symptoms reported Skin: No symptoms reported Hematologic/Lymphatic: No symptoms reported Neurological/Psychological: No symptoms reported Physical Exam - Vital signs Vitals: Temp Pulse Resp BP Pulse Ox 98.5 F 97 18 120/71 100 08/04/18 07:58 08/04/18 07:58 08/04/18 07:58 08/04/18 07:58 08/04/18 07:58 - Notes Notes: PHYSICAL EXAMINATION: Reviewed vital signs and charting by RN GENERAL: Alert, interacts well. No acute distress. HEAD: Normocephalic, atraumatic. EYES: Pupils equal and round. Extraocular movements intact. ENT: Oral mucosa moist, tongue midline. NECK: Full range of motion. Trachea midline. LUNGS: Clear to auscultation bilaterally, no wheezes, rales, or rhonchi. No respiratory distress. HEART: Regular rate and rhythm. No murmur ABDOMEN: soft, non-tender. No distention. Bowel sounds present EXTREMITIES: Moves all 4 extremities spontaneously. No edema, No cyanosis. PSYCH: Normal affect, normal mood. SKIN: Warm, dry, normal turgor. No rashes or lesions noted. Course - Re-evaluation Re-evalutation: 08/04/18 09:46 Overall well-appearing. Patient does complain of nausea and some weakness. Patient given Zofran and a p.o. challenge in the past. I will give her Zofran ODT dispense pack for symptoms. Lab work was all within normal limits. Negative test. Stable for discharge. - Vital Signs Vital signs: Temp Pulse Resp BP Pulse Ox 98.5 F 97 18 120/71 100 08/04/18 07:58 08/04/18 07:58 08/04/18 07:58 08/04/18 07:58 08/04/18 07:58 - Laboratory Result Diagrams: 08/04/18 08:35 08/04/18 08:35 Laboratory results interpreted by me: 08/04/18 08/04/18 08:35 08:35 RDW 14.1 H Urine Blood SMALL H Discharge - Discharge Clinical Impression: Nausea & vomiting Qualifiers: Vomiting type: unspecified Vomiting Intractability: non-intractable Qualified Code(s): R11.2 - Nausea with vomiting, unspecified Condition: Good Disposition: HOME, SELF-CARE Additional Instructions: You have been seen in the Emergency Department (ED) today for nausea and vomiting. Your work up today has not shown a clear cause for your symptoms. You have been prescribed Zofran; please use as prescribed as needed for your nausea. Follow up with your doctor as soon as possible regarding today's emergent visit and your symptoms of nausea. Return to the Emergency Department (ED) if you develop abdominal pain, bloody vomiting, bloody diarrhea, if you are unable to tolerate fluids due to vomiting, or if you develop other symptoms that concern you.
[2018-08-04] MEDS ORDERED: ACETAMINOPHEN 325 MG TABLET PO ONE (09:55)
[2018-08-04 10:02] VITALS: BP 119/71
== END 2018-08-04 10:02 | disposition home or self-care (01) ==
LOC: ER 07:55
DX: R11.2 Nausea with vomiting, unspecified (principal); R50.9 Fever, unspecified; R53.1 Weakness; Z88.3 Allergy status to other anti-infective agents
CPT/HCPCS: 99284; 36415; 83690; 84703; 85025; 80053; 81001; L3908; S0119

== ENCOUNTER 2018-08-07 08:58 | Emergency (ER) | payer SELFPAY ==
[2018-08-07] MEDS ORDERED: ONDANSETRON 4 MG TAB.RAPDIS PO ONE (09:21)
--- NOTE | 2018-08-07 09:30 | ER Document Report ---
ED GI/ - General Chief Complaint: Nausea/Vomiting Stated Complaint: VOMITING Time Seen by Provider: 08/07/18 09:13 Mode of Arrival: Ambulatory Information source: Patient Notes: 23-year-old female presented to ED for complaint of nausea and vomiting for several days. She states she came in here couple days ago and the provider promised her he would give her some Zofran to go home with but he did not. She states she has vomited for the last couple days and she was sent home from work yesterday because of the vomiting. She is not actively vomiting at this time. Patient is alert oriented respirations regular and unlabored speaking in full sentences walks with even steady gait. TRAVEL OUTSIDE OF THE [place] IN LAST 30 DAYS: No - HPI Patient complains to provider of: Vomiting Onset: Other Timing/Duration: Intermittent - Several days Quality of pain: Cramping Severity at maximum: Moderate Severity in ED: Moderate Pain Level: 3 Location: Other Vaginal bleeding (Compared to normal period): None Associated symptoms: Chills, Nausea, Vomiting Exacerbated by: Denies Relieved by: Denies Similar symptoms previously: Yes Recently seen / treated by doctor: Yes - Related Data Allergies/Adverse Reactions: ciprofloxacin [From Cipro] Allergy (Verified 08/07/18 08:59) Hives ciprofloxacin HCl [From Cipro] Allergy (Verified 08/07/18 08:59) Hives metoclopramide HCl [From Reglan] Allergy (Verified 08/07/18 08:59) anxious prochlorperazine edisylate [From Compazine] Allergy (Verified 08/07/18 08:59) prochlorperazine maleate [From Compazine] Allergy (Verified 08/07/18 08:59) Past Medical History - General Information source: Patient - Social History Smoking Status: Never Smoker Frequency of alcohol use: None Drug Abuse: None Lives with: Family Family History: CAD - mother, enlarged heart; father states his cardiac history started after his dialysis, CVA, DM, Hyperlipidemia, Hypertension - mother, Other - p. aunt recently passed from [place] at 45 years old, father with kidney problems Patient has suicidal ideation: No Patient has homicidal ideation: No - Past Medical History Cardiac Medical History: Reports: None Pulmonary Medical History: Reports: Hx Asthma - ON INHALER, USES ABOUT ONCE A MONTH EENT Medical History: Reports: None Neurological Medical History: Reports: Hx Migraine Endocrine Medical History: Reports: None Renal/ Medical History: Reports: Hx Ovarian Cysts, Other - Endometriosis Malignancy Medical History: Reports: None GI Medical History: Reports: Hx Gastritis Musculoskeletal Medical History: Reports None Skin Medical History: Reports None Psychiatric Medical History: Reports: None Traumatic Medical History: Reports: None Infectious Medical History: Reports: None Surgical Hx: Negative Past Surgical History: Reports: None, Hx Gynecologic Surgery - Laparoscopic surgery for diagnosis of endometriosis - Immunizations Immunizations up to date: Yes Hx Diphtheria, Pertussis, Tetanus Vaccination: Yes Review of Systems - Review of Systems Constitutional: No symptoms reported EENT: No symptoms reported Cardiovascular: No symptoms reported Respiratory: No symptoms reported Gastrointestinal: Abdominal pain, Nausea, Vomiting Genitourinary: No symptoms reported Female Genitourinary: No symptoms reported Musculoskeletal: No symptoms reported Skin: No symptoms reported Hematologic/Lymphatic: No symptoms reported Neurological/Psychological: No symptoms reported -: Yes All other systems reviewed and negative Physical Exam - Vital signs Vitals: Temp Pulse Resp BP Pulse Ox 97.9 F 79 18 109/83 98 08/07/18 09:03 08/07/18 09:03 08/07/18 09:03 08/07/18 09:03 08/07/18 09:03 Interpretation: Normal - General General appearance: Appears well, Alert - HEENT Head: Normocephalic, Atraumatic Eyes: Normal Pupils: PERRL - Respiratory Respiratory status: No respiratory distress Chest status: Nontender Breath sounds: Normal Chest palpation: Normal - Cardiovascular Rhythm: Regular Heart sounds: Normal auscultation Murmur: No - Abdominal Inspection: Normal Distension: No distension Bowel sounds: Normal Tenderness: Nontender. No: Tender, McBurney's point, Pina's sign, Guarding, Rebound, Other Organomegaly: No organomegaly. No: Hepatomegaly, Splenomegaly, Mass - Back Back: Normal, Nontender - Extremities General upper extremity: Normal inspection, Nontender, Normal color, Normal ROM, Normal temperature General lower extremity: Normal inspection, Nontender, Normal color, Normal ROM, Normal temperature, Normal weight bearing. No: Dasia's sign - Neurological Neuro grossly intact: Yes Cognition: Normal Orientation: AAOx4 [place] Coma Scale Eye Opening: Spontaneous Deyvi Coma Scale Verbal: Oriented Deyvi Coma Scale Motor: Obeys Commands Deyvi Coma Scale Total: 15 Speech: Normal Motor strength normal: LUE, RUE, LLE, RLE Sensory: Normal - Psychological Associated symptoms: Normal affect, Normal mood - Skin Skin Temperature: Warm Skin Moisture: Dry Skin Color: Normal Course - Re-evaluation Re-evalutation: 08/07/18 10:09 Discussed urine with patient. Will discharge patient home with prescription for Zofran. Patient verbalized understanding of and agreement with treatment plan. Patient to slowly increase fluids and food as tolerated. Patient will be discharged home. - Vital Signs Vital signs: Temp Pulse Resp BP Pulse Ox 98.2 F 68 18 117/81 99 08/07/18 10:17 08/07/18 10:17 08/07/18 10:17 08/07/18 10:17 08/07/18 10:17 Discharge - Discharge Clinical Impression: Nausea & vomiting Qualifiers: Vomiting type: unspecified Vomiting Intractability: non-intractable Qualified Code(s): R11.2 - Nausea with vomiting, unspecified Condition: Stable Disposition: HOME, SELF-CARE Instructions: Family Physicians / Practices Additional Instructions: VOMITING: Vomiting (or nausea without vomiting) can be caused by many other different problems. It can mean that something's wrong with the stomach, such as ulcers or inflammation or the intestinal tract, such as appendicitis. But it can also be a symptom of a problem that has nothing to do with the stomach or intestines. Vomiting is common with severe headaches, earaches, tonsillitis, and kidney infections, etc. We see it with pneumonia or heart attacks. Drugs can cause nausea and vomiting. Many abdominal problems cause vomiting; for example, gallstones, kidney stones, pancreatitis, and intestinal obstruction (blocked bowels). In most cases, curing the vomiting depends on fixing the problem that caused it. For temporary relief, we may use an anti-nausea medicine. For home use, we can prescribe suppositories, chewable pills, pills that dissolve in the mouth, or liquid anti-nausea drugs. If the vomiting seems to be caused by a problem in the stomach, acid-suppressing drugs may be prescribed as well. It's important to avoid dehydration. Sip small amounts of clear liquids (soft drinks, tea, broth, etc) . Try to take fluids frequently even if you are vomiting to prevent dehydration. Take increasing amounts of fluid and when liquids are being consumed successfully, advance to small amounts of bland food (toast, soups, mashed potatoes, etc.) until you are able to resume a regular diet. Avoid aspirin, tobacco, and alcohol. If the vomiting worsens, if the problem that's making you vomit worsens, or if there's evidence of bleeding in the stomach (such as black, tarry stool, or bloody or black vomit), you should return immediately. Also, return if abdominal pain worsens or becomes localized to one area or you develop high fever. Call your doctor if you aren't improved in 24 hours. VIRAL SYNDROME: The physician has diagnosed a viral infection. Viruses not only cause "colds," but can cause many different symptoms including generalized aching, fever, headache, cough, diarrhea, nausea, vomiting, and fatigue. The treatment, for the most part, is simply relief of symptoms. This means that antibiotics are usually not given. Rest, fluids, pain medications and, occasionally, medication for the specific symptoms that are most bothersome will be prescribed. Use good handwashing to avoid passing the virus to others. Shared toys should be cleaned with disinfectant. Clean the toilets, sinks, and counter surfaces in bathrooms. Launder clothing in hot water. Contact the physician if you develop any new or unusual symptoms such as severe headache, stiff neck, high fever, chest pain, productive cough, or shortness of breath. You should be rechecked if you don't see marked improvement within seven to 10 days. ANTINAUSEA MEDICATION: You have been given a medication to suppress nausea and vomiting. This type of medication can be given as a shot, pill, or suppository. It will usually last for many hours. Pills and shots usually last six to eight hours. For the typical illness, only one or two doses of the medication may be necessary. Mild lightheadedness may occur. This type of medicine can cause drowsiness. Do not drive or operate dangerous machinery while under its influence. Do not mix with alcohol. See your doctor at once if you have muscle spasms or tightness, or uncontrollable motions (particularly of the neck, mouth, or jaw). Persistent vomiting or severe lightheadedness should also be evaluated by the physician. FOLLOW-UP CARE: If you have been referred to a physician for follow-up care, call the physicians office for an appointment as you were instructed or within the next two days. If you experience worsening or a significant change in your symptoms, notify the physician immediately or return to the Emergency Department at any time for re-evaluation. Prescriptions: Ondansetron [Zofran Odt 4 mg Tablet] 1 tab PO Q6H #15 tab.rapdis Forms: Return to Work
[2018-08-07 09:43] LABS: APPEARANCE,URINE SLIGHTLY-CLOUDY; BILIRUBIN,URINE NEGATIVE (NEGATIVE); COLOR,URINE YELLOW; GLUCOSE, URINE NEGATIVE (NEGATIVE); KETONES,URINE NEGATIVE (NEGATIVE); LEUKOCYTE ESTERASE,URINE NEGATIVE (NEGATIVE); NITRITE,URINE NEGATIVE (NEGATIVE); PROTEIN,URINE NEGATIVE (NEGATIVE); URINE SPECIFIC GRAVITY 1.029; UROBILINOGEN,URINE NEGATIVE mg/dL (<2.0)
[2018-08-07 10:20] VITALS: BP 117/81
== END 2018-08-07 10:21 | disposition home or self-care (01) ==
LOC: ER 08:58
DX: R11.2 Nausea with vomiting, unspecified (principal); R68.83 Chills (without fever); R10.9 Unspecified abdominal pain; J45.909 Unspecified asthma, uncomplicated; Z88.1 Allergy status to other antibiotic agents; Z88.8 Allergy status to other drugs, medicaments and biological substances
CPT/HCPCS: 99283; 87086; 81025; 81001; S0119

== ENCOUNTER 2018-10-21 11:54 | Emergency (ER) | payer SELFPAY ==
--- NOTE | 2018-10-21 12:40 | ER Document Report ---
ED Medical Screen (RME) - General Chief Complaint: Vaginal Discharge Stated Complaint: VAGINAL DISCHARGE Time Seen by Provider: 10/21/18 12:38 Mode of Arrival: Ambulatory Information source: Patient Notes: 23-year-old female presented to ED for complaint of pelvic pain vaginal discharge for about a week. She states the pain alternates between left and right. She states she has been nauseated no vomiting or diarrhea. Denies any pain or burning with urine. Eating she states she is also had some back pain but that comes and goes. Patient is alert and oriented respirations regular and unlabored speaking in full sentences walks with even steady gait breaths. Last menstrual cycle September 27 I have greeted and performed a rapid initial assessment of this patient. A comprehensive ED assessment and evaluation of the patient, analysis of test results and completion of medical decision making process will be conducted by an additional ED providers. TRAVEL OUTSIDE OF THE [place] IN LAST 30 DAYS: No - Related Data Allergies/Adverse Reactions: ciprofloxacin [From Cipro] Allergy (Verified 10/21/18 11:57) Hives ciprofloxacin HCl [From Cipro] Allergy (Verified 10/21/18 11:57) Hives metoclopramide HCl [From Reglan] Allergy (Verified 10/21/18 11:57) anxious prochlorperazine edisylate [From Compazine] Allergy (Verified 10/21/18 11:57) prochlorperazine maleate [From Compazine] Allergy (Verified 10/21/18 11:57) Past Medical History - General Last Menstrual Period: September 2018 - Social History Frequency of alcohol use: Rare Drug Abuse: None - Past Medical History Cardiac Medical History: Denies: Hx Heart Attack, Hx Hypertension Pulmonary Medical History: Reports: Hx Asthma - ON INHALER, USES ABOUT ONCE A MONTH Neurological Medical History: Reports: Hx Migraine. Denies: Hx Cerebrovascular Accident, Hx Seizures Renal/ Medical History: Reports: Hx Ovarian Cysts. Denies: Hx Ectopic , Hx Peritoneal Dialysis, Hx Pelvic Inflammatory Disease GI Medical History: Reports: Hx Gastritis. Denies: Hx Hepatitis, Hx Hiatal Hernia, Hx Ulcer Infectious Medical History: Denies: Hx Hepatitis Past Surgical History: Reports: Hx Gynecologic Surgery - Laparoscopic surgery for diagnosis of endometriosis. Denies: Hx Hysterectomy, Hx Mastectomy, Hx Open Heart Surgery, Hx Pacemaker - Immunizations Immunizations up to date: Yes Hx Diphtheria, Pertussis, Tetanus Vaccination: Yes Physical Exam - Vital signs Vitals: Temp Pulse Resp BP Pulse Ox 98.0 F 63 18 128/70 H 98 10/21/18 11:59 10/21/18 11:59 10/21/18 11:59 10/21/18 11:59 10/21/18 11:59 Course - Vital Signs Vital signs: Temp Pulse Resp BP Pulse Ox 98.0 F 63 18 128/70 H 98 10/21/18 11:59 10/21/18 11:59 10/21/18 11:59 10/21/18 11:59 10/21/18 11:59
[2018-10-21 13:07] LABS: EPITHELIALS (WET MOUNT) 3+ EPITHELIALS SEEN; T.VAGINALIS (WET MOUNT) NO TRICHOMONAS SEEN; WBCS (WET MOUNT) FEW WBCS SEEN; YEAST (WET MOUNT) NO YEAST SEEN
[2018-10-21 13:27] LABS: AMORPHOUS SEDIMENT,URINE TRACE /HPF; APPEARANCE,URINE CLOUDY; BILIRUBIN,URINE NEGATIVE (NEGATIVE); COLOR,URINE YELLOW; GLUCOSE, URINE NEGATIVE (NEGATIVE); KETONES,URINE 20 mg/dL (NEGATIVE); LEUKOCYTE ESTERASE,URINE NEGATIVE (NEGATIVE); NITRITE,URINE NEGATIVE (NEGATIVE); PROTEIN,URINE NEGATIVE (NEGATIVE); UROBILINOGEN,URINE NEGATIVE mg/dL (<2.0)
--- NOTE | 2018-10-21 14:24 | ER Document Report ---
HPI - HPI Patient complains to provider of: vaginal dc Time Seen by Provider: 10/21/18 12:38 Pain Level: 2 Context: 23 Yr old female patient, with the listed pmh, here for vaginal discharge and lower abdominal pain x7 days. No abdominal surgeries. No history of ovarian cysts, fibroids, endometriosis, or renal stones. Normal bowel movements. No UTI symptoms. No URI symptoms. No recent antibiotics or steroids. No history of diabetes or asthma. No vaginal discharge/complaints/lesions or concerns for STDs and does not want a pelvic exam. No ripping or tearing sensation. Hasn't taken anything for her symptoms. No excessive NSAID use, Tylenol use, or EtOH. No prior history of gallbladder disease, pancreatitis, ulcers, GI bleed, GERD, IBS, Crohn's, or UC. no change in color or caliber or stool. no blood thinners. no fall or trauma. no other associated sx. - ROS Systems Reviewed and Negative: Yes All other systems reviewed and negative - To include 10 systems, unless mentioned in the hpi. - REPRODUCTIVE LMP: 09/27/2018 Reproductive: DENIES: : - DERM Skin Color: Normal Past Medical History - General Information source: Patient Last Menstrual Period: September 2018 - Social History Smoking Status: Never Smoker Frequency of alcohol use: Rare Drug Abuse: None Family History: CAD - mother, enlarged heart; father states his cardiac history started after his dialysis, CVA, DM, Hyperlipidemia, Hypertension - mother, Other - p. aunt recently passed from [place] at 45 years old, father with kidney problems Patient has suicidal ideation: No Patient has homicidal ideation: No - Past Medical History Cardiac Medical History: Denies: Hx Heart Attack, Hx Hypertension Pulmonary Medical History: Reports: Hx Asthma - ON INHALER, USES ABOUT ONCE A MONTH Neurological Medical History: Reports: Hx Migraine. Denies: Hx Cerebrovascular Accident, Hx Seizures Renal/ Medical History: Reports: Hx Ovarian Cysts. Denies: Hx Ectopic , Hx Peritoneal Dialysis, Hx Pelvic Inflammatory Disease GI Medical History: Reports: Hx Gastritis. Denies: Hx Hepatitis, Hx Hiatal Hernia, Hx Ulcer Infectious Medical History: Denies: Hx Hepatitis Past Surgical History: Reports: Hx Gynecologic Surgery - Laparoscopic surgery for diagnosis of endometriosis. Denies: Hx Hysterectomy, Hx Mastectomy, Hx Open Heart Surgery, Hx Pacemaker - Immunizations Immunizations up to date: Yes Hx Diphtheria, Pertussis, Tetanus Vaccination: Yes Vertical Provider Document - CONSTITUTIONAL Notes: >>>> PHYSICAL_EXAM: GENERAL_APPEARANCE: well_nourished, alert, cooperative, no_acute_distress, no_obvious_discomfort. Pleasant, female, smiling, speaking in full sentences, in no sign of pain or resp distress, easily sitting up VITALS: reviewed, see vital signs table. HEAD: normocephalic, atraumatic. no saleh signs. no raccoon eyes. EYES: PERRL, EOMI, (-)scleral icterus. NOSE: no_nasal_discharge. MOUTH: (-)decreased moisture. THROAT: no_tonsilar_inflammation/hypertrophy/exudate NECK: supple, no_neck_tenderness, full rom. full strength. no meningeal signs. no sign of central cord syndrome BACK: no midline_back_tenderness. no step offs or deformities CHEST_WALL: no_chest_tenderness. LUNGS: no_wheezing, (-)accessory muscle use, good air exchange bilateral. HEART: normal_rate, normal_rhythm, ABDOMEN: normal_BS, soft, abdomen-diffuse, non-tender, (-)guarding, (- )rebound, no distension or peritoneal signs. neg murphys. neg mcburneys. no cva tenderness. neg heel strike. neg obturator. neg psoas. neg rovsign. GENITALS: no_ulcers_or_lesions on the genitals, no_lacerations on the genitals, PELVIC: (-)tender uterus, left_and_right adnexa non-tender, (-)CMT, (-)active bleeding, (-)discharge, no_tenderness no cervcicitis, normal os, pt consented to exam. exam without incident. ed nurse __ at bedside during entire exam as toll patrolman. RECTAL: deferred EXTREMITIES: strength 5/5 in all_extremities, good pulses in all_extremities, no_edema, no_swelling\tenderness. full rom. normal gait. good hand rail director. brisk cap refill. SKIN: warm, dry, good_color, no_rash. no grossly visible overlying skin changes to suggest trauma NEURO: motor_intact, sensory_intact. cranial nerves 2-12 intact, cerebellar fxn intact MENTAL_STATUS: normal_affect, speech_clear, oriented_X_3, responds_appropriate ly to questions. - INFECTION CONTROL TRAVEL OUTSIDE OF THE [place] IN LAST 30 DAYS: No Course - Re-evaluation Re-evalutation: 10/21/18 17:04 Pt here for vaginal discharge and lower abdominal pain for the last week. She did have concerns for STDs so she is prophylactically treated with Rocephin and azithromycin here. We will also discharge her with Flagyl. Her urine and urine proxy test are unremarkable. Urine culture is pending. She initially did self swabs for her GC and chlamydia endocervical sample and wet prep however these appear contaminated so I did do a pelvic exam to make sure she did not have any cervical motion tenderness and to rule out PID. She did not have this. I did review her wet prep and GC and chlamydia. However a lab noted on the patient's repeat wet prep that there was too much saline solution and the results were skewed and likely diluted. His second Germán to this being the second time the patient is Franki had this I did go ahead and prophylactically treat her for bacterial vaginosis as she did have copious white discharge others. Advised to follow-up with the health department for further any further desires STD testing. Condom use for safe sex. No intercourse for the next week. Have partner tested and treated before engaging in any intercourse. Advised we will call her with the results once they return. Advised no intercourse if she has any symptoms. Patient had no tenderness to palpation on abdominal exam other than some questionable early minimal to no tenderness to palpation suprapubically in the left lower quadrant right lower quadrant. She had no tenderness to palpation on bimanual exam. The patient did have concerned she could have an ovarian cyst however her symptoms been ongoing for a week so torsion is unlikely. Did offer patient a transvaginal ultrasound to look for ovarian cyst as the cause of her pain as she also has a history of endometriosis. The patient initially went to ultrasound but then stated she no longer wanted to wait for it or just follow-up outpatient. Gave the patient strict return precautions. Advised to f/u with pcp/PROGRAM OR PROJECT ADMINISTRATOR/health department in 1-2 days. return for any worsening symptoms. vss. well appearing. satting well on ra. neurononfocal. pt understands and agrees to plan. On reexam, pt improved with tx listed. remained stable. nontoxic. well appearing. pain controlled. tolerating po. requesting to go home. Documentation achieved through voice recording which may lead to some occasional accidental typographical errors. Extensive efforts have been made to proof read documentation to make sure these are the least as possible. Category Date Time Status Pelvic Setup (ED) NOW Care 10/21/18 12:41 Completed [facility] [MO] Stat Lab 10/21/18 12:53 Completed [facility] [[facility]] Stat Lab 10/21/18 14:57 Completed HCG QUALITATIVE, URINE [URIN] Stat Lab 10/21/18 12:53 Completed URINALYSIS [URIN] Stat Lab 10/21/18 12:53 Completed URINE CULTURE [MC] Stat Lab 10/21/18 12:53 Received WET MOUNT [MO] Stat Lab 10/21/18 12:53 Completed WET MOUNT [MO] Stat Lab 10/21/18 14:57 Completed Azithromycin [Zithromax 250 mg Tablet] Med 10/21/18 14:58 Discontinued 1,000 mg PO NOW ONE Ceftriaxone Sodium [Rocephin Inj 250 mg Vial] Med 10/21/18 14:58 Discontinued 250 mg IM NOW ONE Lidocaine HCl/Pf [Xylocaine 1% Inj-Pf (10 mg/ml) 30 ml Med 10/21/18 14:58 Discontinued Sdv] 3 ml NEB NOW ONE 10/21/18 17:07 - Vital Signs Vital signs: Temp Pulse Resp BP Pulse Ox 98.0 F 63 18 128/70 H 98 10/21/18 11:59 10/21/18 11:59 10/21/18 11:59 10/21/18 11:59 10/21/18 11:59 10/21/18 17:07 Temp Pulse Resp BP Pulse Ox 10/21/18 11:59 98.0 F 63 18 128/70 H 98 - Laboratory Laboratory results interpreted by me: 10/21/18 12:53 Urine Ketones 20 H 10/21/18 17:07 Labs- Entire Visit 10/21/18 10/21/18 10/21/18 12:53 12:53 12:53 Urine Color YELLOW Urine Appearance CLOUDY Urine pH 8.0 Ur Specific Jackson 1.020 Urine Protein NEGATIVE Urine Glucose (UA) NEGATIVE Urine Ketones 20 H Urine Blood NEGATIVE Urine Nitrite NEGATIVE Urine Bilirubin NEGATIVE Urine Urobilinogen NEGATIVE Ur Leukocyte Esterase NEGATIVE Squamous Epi Cells Auto 2 Amorphous Sediment Auto TRACE Urine Mucus (Auto) RARE Urine Ascorbic Acid NEGATIVE Urine HCG, Qual NEGATIVE Epi Cells (Wet Prep) 3+ EPITHELIALS SEEN Bacteria (Wet Prep) Trichomonas (Wet Prep) NO TRICHOMONAS SEEN Vaginal WBC FEW WBCS SEEN Vaginal RBC Vaginal Yeast NO YEAST SEEN Chlamydia DNA (PCR) NOT DETECTED N.gonorrhoeae DNA (PCR) NOT DETECTED 10/21/18 10/21/18 14:57 14:57 Urine Color Urine Appearance Urine pH Ur Specific Jackson Urine Protein Urine Glucose (UA) Urine Ketones Urine Blood Urine Nitrite Urine Bilirubin Urine Urobilinogen Ur Leukocyte Esterase Squamous Epi Cells Auto Amorphous Sediment Auto Urine Mucus (Auto) Urine Ascorbic Acid Urine HCG, Qual Epi Cells (Wet Prep) REFRIGERATION MECHANIC Bacteria (Wet Prep) REFRIGERATION MECHANIC Trichomonas (Wet Prep) NO TRICHOMONAS SEEN Vaginal WBC 2+ WBCS SEEN Vaginal RBC 1+ RBCS SEEN Vaginal Yeast NO YEAST SEEN Chlamydia DNA (PCR) NOT DETECTED N.gonorrhoeae DNA (PCR) NOT DETECTED Discharge - Discharge Clinical Impression: Vaginal discharge Condition: Good Disposition: HOME, SELF-CARE Instructions: Vaginosis, Bacterial ([facility]) Additional Instructions: Follow-up with PCP/health department/PROGRAM OR PROJECT ADMINISTRATOR in 1 to 2 days. Return for any worsening symptoms. tylenol or motrin as needed for any pain or fever if not allergic. take the medication as prescribed. follow-up with health department for any further desired STD testing. Condom use for safe sex. no intercourse for atleast week after completion of antibiotics and no intercourse if any symptoms. have partner tested and treated before engaging in any intercourse. Prescriptions: Metronidazole [Flagyl 500 mg Tablet] 500 mg PO BID 7 Days #14 tablet Referrals: MOJGAN VASQUEZ MD [Primary Care Provider] - Follow up as needed
[2018-10-21 14:37] LABS: CHLAM PCR NOT DETECTED (NOT DETECT)
[2018-10-21] MEDS ORDERED: AZITHROMYCIN 250 MG TABLET PO ONE (14:58)
[2018-10-21] MEDS ORDERED: LIDOCAINE 1% INJ-PF (10 MG/ML) 30 ML SDV NEB ONE (14:58)
[2018-10-21] MEDS ORDERED: CEFTRIAXONE INJ 250 MG VIAL IM ONE (14:58)
[2018-10-21 15:30] LABS: RBCS (WET MOUNT) 1+ RBCS SEEN; T.VAGINALIS (WET MOUNT) NO TRICHOMONAS SEEN; WBCS (WET MOUNT) 2+ WBCS SEEN; YEAST (WET MOUNT) NO YEAST SEEN
[2018-10-21 16:55] LABS: CHLAM PCR NOT DETECTED (NOT DETECT)
[2018-10-21 17:22] VITALS: BP 112/83
== END 2018-10-21 17:22 | disposition home or self-care (01) ==
LOC: ER 11:54
DX: N89.8 Other specified noninflammatory disorders of vagina (principal); R10.30 Lower abdominal pain, unspecified; J45.909 Unspecified asthma, uncomplicated
CPT/HCPCS: 99283; 96372; 87086; 87210; 81025; 81001; 87491; 87591; J3490; J0696

== ENCOUNTER 2018-12-02 10:13 | Emergency (ER) | payer SELFPAY ==
[2018-12-02 10:20] VITALS: BP 113/68
--- NOTE | 2018-12-02 13:38 | ER Document Report ---
HPI - HPI Patient complains to provider of: cough sore throat, exposure to flu Time Seen by Provider: 12/02/18 13:28 Onset: Other - 3 days Onset/Duration: Sudden, Persistent Pain Level: Denies Context: 23-year-old female with history of asthma presents emergency department with complaints of cough runny nose sore throat and exposure to flu. Reports that she was coughing had a sore throat for the past 3 days. Reports yesterday she had a headache none today. Also reports she is vomiting yesterday but none today. Reports she was recently exposed to flu by her niece. Denies fever or diarrhea patient also works at a [email or web address] station and is exposed to a lot of different people with coughing flu symptoms. Patient reports she used her inhaler 2 to 3 days ago. Associated Symptoms: Nonproductive cough, Fever, Sore throat Exacerbated by: Denies Relieved by: Denies Similar symptoms previously: No Recently seen / treated by doctor: No - REPRODUCTIVE LMP: 10-31-18 Reproductive: DENIES: : Past Medical History - General Information source: Patient Last Menstrual Period: current - Social History Smoking Status: Never Smoker Cigarette use (# per day): No Frequency of alcohol use: None Drug Abuse: None Occupation: gas station Lives with: Family Family History: CAD - mother, enlarged heart; father states his cardiac history started after his dialysis, CVA, DM, Hyperlipidemia, Hypertension - mother, Other - p. aunt recently passed from [place] at 45 years old, father with kidney problems Patient has suicidal ideation: No Patient has homicidal ideation: No - Past Medical History Cardiac Medical History: Denies: Hx Heart Attack, Hx Hypertension Pulmonary Medical History: Reports: Hx Asthma - ON INHALER, USES ABOUT ONCE A MONTH Neurological Medical History: Reports: Hx Migraine. Denies: Hx Cerebrovascular Accident, Hx Seizures Renal/ Medical History: Reports: Hx Ovarian Cysts. Denies: Hx Ectopic , Hx Peritoneal Dialysis, Hx Pelvic Inflammatory Disease GI Medical History: Reports: Hx Gastritis. Denies: Hx Hepatitis, Hx Hiatal Hernia, Hx Ulcer Infectious Medical History: Denies: Hx Hepatitis Past Surgical History: Reports: Hx Gynecologic Surgery - Laparoscopic surgery for diagnosis of endometriosis. Denies: Hx Hysterectomy, Hx Mastectomy, Hx Open Heart Surgery, Hx Pacemaker - Immunizations Immunizations up to date: Yes Hx Diphtheria, Pertussis, Tetanus Vaccination: Yes Vertical Provider Document - CONSTITUTIONAL Agree With Documented VS: Yes Exam Limitations: No Limitations General Appearance: WD/WN, No Apparent Distress - INFECTION CONTROL TRAVEL OUTSIDE OF THE [place] IN LAST 30 DAYS: No - HEENT HEENT: Atraumatic, Normocephalic, Pharyngeal Erythema - Good airway. negative: Conjuctival Injection, Pharyngeal Exudate, Tympanic Membrane Red - NECK Neck: Normal Inspection, Supple - RESPIRATORY Respiratory: Breath Sounds Normal, No Respiratory Distress. negative: Rhonchi, Wheezing - CARDIOVASCULAR Cardiovascular: Regular Rate, Regular Rhythm - GI/ABDOMEN Gastrointestinal: Abdomen Soft - MUSCULOSKELETAL/EXTREMETIES Musculoskeletal/Extremeties: MERLIN GOEL - NEURO Level of Consciousness: Awake, Alert, Appropriate Motor/Sensory: No Motor Deficit - DERM Integumentary: Warm, Dry, No Rash Course - Re-evaluation Re-evalutation: 12/02/18 13:40 23-year-old female presents emergency department with cold symptoms. Reports she was having a headache and nausea vomiting yesterday but none today. Reports she still coughing has some runny nose and sneezing. Reports she was also exposed to the flu by her niece. Patient strep test is negative. Culture is pending. Patient speaking in clear voice no distress. No coughing noted during the entire interview and assessment. Lungs are clear respiratory rate even unlabored. Patient was instructed to use her inhaler as indicated patient was prescribed antiviral medication for prophylaxis treatment of the flu. She verbalized understanding to all instructions. Dictation of this chart was performed using voice recognition software; therefore, there may be some unintended grammatical errors. 12/02/18 13:42 - Vital Signs Vital signs: Temp Pulse Resp BP Pulse Ox 97.9 F 69 18 113/68 98 12/02/18 10:19 12/02/18 10:19 12/02/18 10:19 12/02/18 10:19 12/02/18 10:19 Discharge - Discharge Clinical Impression: Cough, Sore throat, Exposure to the flu Condition: Stable Disposition: HOME, SELF-CARE Instructions: [facility], Use of Gdkf-Gok-Tmerwzs Ibuprofen ([facility]), Influenza ([facility]), Sore Throat ([facility]) Additional Instructions: *You have been evaluated for a sore throat, cough, exposure to the flu Your strep test came back negative. A throat culture is pending. Should you need antibiotics you will be contacted in 3 to 4 days. *Take medication as prescribed *In the meantime gargle with warm salt water gargles and use throat lozenges for your comfort Do not let anyone drink/eat after you *Good hand washing *Follow-up with a primary care provider or [facility] within 1 week for recheck *Return to ED for worsening condition change, needs Prescriptions: Baloxavir Marboxil [Xofluza] 80 mg PO ONCE PRN #2 tablet PRN Reason: Forms: Return to Work Referrals: MOJGAN VASQUEZ MD [ACTIVE STAFF] - Follow up in 1 week
== END 2018-12-02 13:50 | disposition home or self-care (01) ==
LOC: ER 10:13
DX: J02.9 Acute pharyngitis, unspecified (principal); R05 Cough
CPT/HCPCS: 87070; 87880; 99283

== ENCOUNTER 2018-12-23 09:05 | Emergency (ER) | payer SELFPAY ==
[2018-12-23 10:00] LABS: HEMATOCRIT 38.6 % (36.0-47.0); MEAN CORPUSCULAR HGB CONC 33.6 g/dL (32.0-36.0); MEAN CORPUSCULAR VOLUME 90 fl (80-97); PLATELET COUNT 325 10^3/uL (150-450); RED BLOOD COUNT 4.31 10^6/uL (3.72-5.28); RED CELL DISTRIBUTION WIDTH 13.6 % (11.5-14.0); WHITE BLOOD COUNT 7.2 10^3/uL (4.0-10.5)
[2018-12-23 10:13] LABS: APPEARANCE,URINE CLEAR; BILIRUBIN,URINE NEGATIVE (NEGATIVE); COLOR,URINE YELLOW; GLUCOSE, URINE NEGATIVE (NEGATIVE); KETONES,URINE NEGATIVE (NEGATIVE); LEUKOCYTE ESTERASE,URINE NEGATIVE (NEGATIVE); NITRITE,URINE NEGATIVE (NEGATIVE); PROTEIN,URINE NEGATIVE (NEGATIVE); URINE SPECIFIC GRAVITY 1.029; UROBILINOGEN,URINE NEGATIVE mg/dL (<2.0)
[2018-12-23 10:17] LABS: ABSOLUTE LYMPHOCYTES# (MANUAL) 4.2 10^3/uL (0.5-4.7); ABSOLUTE MONOCYTES # (MANUAL) 0.2 10^3/uL (0.1-1.4); BASOPHILS % (MANUAL) 1 % (0-2); EOSINOPHILS % (MANUAL) 3 % (0-6); LYMPHOCYTES % (MANUAL) 56 % (13-45); MONOCYTES % (MANUAL) 3 % (3-13); SEGMENTED NEUTROPHILS % (MAN) 35 % (42-78); TOTAL CELLS COUNTED 100
[2018-12-23 10:19] LABS: ALBUMIN 4.5 g/dL (3.5-5.0); ALKALINE PHOSPHATASE 58 U/L (38-126); ANION GAP 11 (5-19); ASPARTATE AMINO TRANSFERASE 34 U/L (14-36); BILIRUBIN,DIRECT 0.1 mg/dL (0.0-0.4); BILIRUBIN,TOTAL 0.3 mg/dL (0.2-1.3); BLOOD UREA NITROGEN 15 mg/dL (7-20); CALCIUM 10.1 mg/dL (8.4-10.2); CARBON DIOXIDE 29 mmol/L (22-30); CHLORIDE 105 mmol/L (98-107); GLUCOSE 85 mg/dL (75-110); PLATELET COMMENT ADEQUATE
[2018-12-23] MEDS ORDERED: IBUPROFEN 800 MG TABLET PO ONE (10:27)
[2018-12-23] MEDS ORDERED: ONDANSETRON 4 MG TAB.RAPDIS PO ONE (10:27)
--- NOTE | 2018-12-23 10:28 | ER Document Report ---
ED Medical Screen (RME) - General Chief Complaint: Abdominal Pain Stated Complaint: ABDOMINAL PAIN Time Seen by Provider: 12/23/18 10:11 Mode of Arrival: Ambulatory Information source: Patient Notes: Patient presents complaining of lower pelvic cramping for the past 4 days with nausea and urinary frequency. Patient also reports vaginal discharge and irritation to the vaginal area. I have greeted and performed a rapid initial assessment of this patient. A comprehensive ED assessment and evaluation of the patient, analysis of test results and completion of the medical decision making process will be conducted by additional ED providers. TRAVEL OUTSIDE OF THE [place] IN LAST 30 DAYS: No - Related Data Allergies/Adverse Reactions: ciprofloxacin [From Cipro] Allergy (Verified 10/21/18 11:57) Hives ciprofloxacin HCl [From Cipro] Allergy (Verified 10/21/18 11:57) Hives metoclopramide HCl [From Reglan] Allergy (Verified 10/21/18 11:57) anxious prochlorperazine edisylate [From Compazine] Allergy (Verified 10/21/18 11:57) prochlorperazine maleate [From Compazine] Allergy (Verified 10/21/18 11:57) Past Medical History - Past Medical History Cardiac Medical History: Denies: Hx Heart Attack, Hx Hypertension Pulmonary Medical History: Reports: Hx Asthma - ON INHALER, USES ABOUT ONCE A MONTH Neurological Medical History: Reports: Hx Migraine. Denies: Hx Cerebrovascular Accident, Hx Seizures Renal/ Medical History: Reports: Hx Ovarian Cysts. Denies: Hx Ectopic P regnancy, Hx Peritoneal Dialysis, Hx Pelvic Inflammatory Disease GI Medical History: Reports: Hx Gastritis. Denies: Hx Hepatitis, Hx Hiatal Hernia, Hx Ulcer Infectious Medical History: Denies: Hx Hepatitis Past Surgical History: Reports: Hx Gynecologic Surgery - Laparoscopic surgery for diagnosis of endometriosis. Denies: Hx Hysterectomy, Hx Mastectomy, Hx Open Heart Surgery, Hx Pacemaker - Immunizations Immunizations up to date: Yes Hx Diphtheria, Pertussis, Tetanus Vaccination: Yes Physical Exam - Vital signs Vitals: Temp Pulse Resp BP Pulse Ox 98.1 F 61 16 119/83 100 12/23/18 09:11 12/23/18 09:11 12/23/18 09:11 12/23/18 09:11 12/23/18 09:11 - Abdominal Tenderness: Tender - Lower pelvic Course - Vital Signs Vital signs: Temp Pulse Resp BP Pulse Ox 98.1 F 61 16 119/83 100 12/23/18 09:11 12/23/18 09:11 12/23/18 09:11 12/23/18 09:11 12/23/18 09:11 - Laboratory Result Diagrams: 12/23/18 09:35 12/23/18 09:35 Laboratory results interpreted by me: 12/23/18 09:35 Seg Neuts % (Manual) 35 L Lymphocytes % (Manual) 56 H
--- NOTE | 2018-12-23 12:09 | ER Document Report ---
ED General - General Chief Complaint: Abdominal Pain Stated Complaint: ABDOMINAL PAIN Time Seen by Provider: 12/23/18 10:11 Mode of Arrival: Ambulatory TRAVEL OUTSIDE OF THE [place] IN LAST 30 DAYS: No - HPI Notes: 23-year-old female presenting with a chief complaint of vaginal discharge and mild pelvic cramping of 2 weeks duration. Onset 2 weeks ago. Duration persistent. Quality 1 dull cramping. Location generalized pelvis. Radiation none. Precipitating factors not identified. Relieving factors: Patient has not attempted any type of treatment at home. Severity mild. Denies fever, chills, nausea or vomiting. Last menses 2 weeks ago. Patient has never been . Treated several times in the past for minor vaginal infections. Denies known history of PID. Pertinent prior history: Endometriosis. Previous laparoscopy for this. - Related Data Allergies/Adverse Reactions: ciprofloxacin [From Cipro] Allergy (Verified 10/21/18 11:57) Hives ciprofloxacin HCl [From Cipro] Allergy (Verified 10/21/18 11:57) Hives metoclopramide HCl [From Reglan] Allergy (Verified 10/21/18 11:57) anxious prochlorperazine edisylate [From Compazine] Allergy (Verified 10/21/18 11:57) prochlorperazine maleate [From Compazine] Allergy (Verified 10/21/18 11:57) Past Medical History - General Information source: Patient - Social History Smoking Status: Unknown if Ever Smoked Family History: CAD - mother, enlarged heart; father states his cardiac history started after his dialysis, CVA, DM, Hyperlipidemia, Hypertension - mother, Other - p. aunt recently passed from [place] at 45 years old, father with kidney problems Patient has suicidal ideation: No Patient has homicidal ideation: No - Past Medical History Cardiac Medical History: Denies: Hx Heart Attack, Hx Hypertension Pulmonary Medical History: Reports: Hx Asthma - ON INHALER, USES ABOUT ONCE A MONTH Neurological Medical History: Reports: Hx Migraine. Denies: Hx Cerebrovascular Accident, Hx Seizures Renal/ Medical History: Reports: Hx Ovarian Cysts, Other - Endometriosis. Denies: Hx Ectopic , Hx Peritoneal Dialysis, Hx Pelvic Inflammatory Disease GI Medical History: Reports: Hx Gastritis. Denies: Hx Hepatitis, Hx Hiatal Hernia, Hx Ulcer Infectious Medical History: Denies: Hx Hepatitis Past Surgical History: Reports: Hx Gynecologic Surgery - Laparoscopic surgery for diagnosis of endometriosis. Denies: Hx Hysterectomy, Hx Mastectomy, Hx Open Heart Surgery, Hx Pacemaker - Immunizations Immunizations up to date: Yes Hx Diphtheria, Pertussis, Tetanus Vaccination: Yes Review of Systems - Review of Systems Notes: Constitutional: Negative for fever. HENT: Negative for sore throat. Eyes: Negative for visual changes. Cardiovascular: Negative for chest pain. Respiratory: Negative for shortness of breath. Gastrointestinal: Negative for abdominal pain, vomiting or diarrhea. Genitourinary: Negative for dysuria. Musculoskeletal: Negative for back pain. Skin: Negative for rash. Neurological: Negative for headaches, weakness or numbness. 10 point ROS negative except as marked above and in HPI. Physical Exam - Vital signs Vitals: Temp Pulse Resp BP Pulse Ox 98.1 F 61 16 119/83 100 12/23/18 09:11 12/23/18 09:11 12/23/18 09:11 12/23/18 09:11 12/23/18 09:11 Notes: GENERAL: Well-developed well-nourished appearing in no acute distress. SKIN: Good turgor no rashes. HEAD: Normocephalic atraumatic. EYES: PERRLA. Conjunctivae and sclerae clear. EARS: CANALS AND TMS CLEAR. NOSE: CLEAR. MOUTH: Moist mucosa. Good dentition. No stridor or edema. No drooling. NECK: Supple. No masses or thyromegaly. No adenopathy. Carotids 2+ without bruits. No JVD. BACK: Symmetrical without tenderness. CHEST: Respirations unlabored. Breath sounds clear and symmetrical. HEART: Regular rhythm. No murmur gallop or rub. ABDOMEN: Soft nontender without masses, organomegaly or rebound. Bowel sounds normally active. No bruits. GENITALIA: Normal external genitalia and hair distribution. Moderate amount of caseous white vaginal discharge. Cervix shows no lesions. Uterus is small firm and anterior. No adnexal masses. No tenderness on bimanual exam. EXTREMITIES: No edema. No calf tenderness. Cap refill less than 1.5 seconds. Dorsalis pedis and posterior tibial pulses 3+ and symmetrical. NEUROLOGICAL: GCS 15. Alert and oriented x3. Normal gait. Fluent speech. Cranial nerves II through XII intact. Sensorimotor and cerebellar normal. Normal tone. Course - Re-evaluation Re-evalutation: 12/23/18 13:27 Stable for outpatient treatment with Monistat for vaginal yeast infection. - Vital Signs Vital signs: Temp Pulse Resp BP Pulse Ox 98.1 F 61 16 119/83 100 12/23/18 09:11 12/23/18 09:11 12/23/18 09:11 12/23/18 09:11 12/23/18 09:11 - Laboratory Result Diagrams: 12/23/18 09:35 12/23/18 09:35 Laboratory results interpreted by me: 12/23/18 09:35 Seg Neuts % (Manual) 35 L Lymphocytes % (Manual) 56 H 12/23/18 13:27 Wet prep was negative for trichomonas. NADIRA positive for yeast. Discharge - Discharge Clinical Impression: Vaginitis and vulvovaginitis Condition: Stable Disposition: HOME, SELF-CARE Prescriptions: Miconazole Nitrate [Monistat-7 Vaginal Cream 45 gm Tube] 1 applic PV QHS #1 tube
[2018-12-23 12:21] LABS: BACTERIA (WET MOUNT) 4+ BACTERIA SEEN; EPITHELIALS (WET MOUNT) 3+ EPITHELIALS SEEN; T.VAGINALIS (WET MOUNT) NO TRICHOMONAS SEEN; WBCS (WET MOUNT) 3+ WBCS SEEN; YEAST (WET MOUNT) YEAST SEEN
[2018-12-23 13:44] LABS: CHLAM PCR NOT DETECTED (NOT DETECT)
[2018-12-23 14:04] VITALS: BP 116/71
== END 2018-12-23 14:06 | disposition home or self-care (01) ==
LOC: ER 09:05
DX: B37.3 Candidiasis of vulva and vagina (principal); R10.2 Pelvic and perineal pain; J45.909 Unspecified asthma, uncomplicated; Z87.42 Personal history of other diseases of the female genital tract; Z88.1 Allergy status to other antibiotic agents; Z88.8 Allergy status to other drugs, medicaments and biological substances
CPT/HCPCS: 36415; 87210; 83690; 85025; 81025; 80053; 81001; 87491; 87591; S0119; 99284

== ENCOUNTER 2019-08-23 08:46 | Emergency (ER) | payer SELFPAY ==
[2019-08-23 08:52] VITALS: BP 122/73
--- NOTE | 2019-08-23 09:17 | ER Document Report ---
ED Eye Complaint - General Chief Complaint: Eye Problem Stated Complaint: LEFT EYE IRRITATION Time Seen by Provider: 08/23/19 09:14 Notes: CHIEF COMPLAINT: Left eye irritation today HPI: 24-year-old female complaining of left eye irritation with some discharge this morning when she woke up no other cold or cough symptoms. No fever. No vision change ROS: See HPI - all other systems were reviewed and are otherwise negative Constitutional: no fever Eyes: + drainage, no blurred vision ENT: no runny nose, no sore throat Cardiovascular: no chest pain Resp: no SOB, no cough GI: no vomiting, no diarrhea, no abdominal pain : no dysuria Integumentary: no rash Allergy: no hives Musculoskeletal: no extremity pain or swelling Neurological: no visual loss MEDICATIONS: I agree with the patient medications as charted by the RN. ALLERGIES: I agree with the allergies as charted by the RN. PAST MEDICAL HISTORY/PAST SURGICAL HISTORY: Reviewed and agree as charted by RN. SOCIAL HISTORY: Reviewed and agree as charted by RN. FAMILY HISTORY: No significant familial comorbid conditions directly related to patient complaint EXAM: Reviewed vital signs as charted by RN. CONSTITUTIONAL: Alert and oriented and responds appropriately to questions. Well-appearing; well-nourished HEAD: Normocephalic; atraumatic EYES: PERRL; Conjunctivae minimally injected left eye, sclerae non-icteric. No foreign body under the upper or lower lids. Funduscopic exam does not reveal evidence of disc edema or hemorrhage. There is no visible corneal abrasion. No visible stye. No periorbital swelling. ENT: normal nose; no rhinorrhea; moist mucous membranes; pharynx without lesions noted, no uvula edema or deviation, no tonsillar hypertrophy, phonation normal NECK: Supple without meningismus; non-tender; no cervical lymphadenopathy, no masses CARD: Capillary refill less than 3 seconds, symmetric distal pulses RESP: Normal chest excursion without splinting or tachypnea ABD/GI: non-distended BACK: The back appears normal EXT: Normal ROM in all joints; no cyanosis, no effusions, no edema SKIN: Normal color for age and race; warm; dry; good turgor; NEURO: Moves all extremities equally; Motor and sensory function intact PSYCH: The patient's mood and manner are appropriate. Grooming and personal hygiene are appropriate. MDM: 24-year-old female possible early conjunctivitis left eye. Will place on Polytrim, follow-up PCP TRAVEL OUTSIDE OF THE [place] IN LAST 30 DAYS: No - Related Data Allergies/Adverse Reactions: ciprofloxacin [From Cipro] Allergy (Verified 08/23/19 09:00) Hives ciprofloxacin HCl [From Cipro] Allergy (Verified 08/23/19 09:00) Hives metoclopramide HCl [From Reglan] Allergy (Verified 08/23/19 09:00) anxious prochlorperazine edisylate [From Compazine] Allergy (Verified 08/23/19 09:00) prochlorperazine maleate [From Compazine] Allergy (Verified 08/23/19 09:00) Past Medical History - Social History Smoking Status: Never Smoker Chew tobacco use (# tins/day): No Frequency of alcohol use: None Drug Abuse: None Family History: CAD - mother, enlarged heart; father states his cardiac history started after his dialysis, CVA, DM, Hyperlipidemia, Hypertension - mother, Oth er - p. aunt recently passed from [place] at 45 years old, father with kidney problems Patient has homicidal ideation: No - Past Medical History Cardiac Medical History: Denies: Hx Heart Attack, Hx Hypertension Pulmonary Medical History: Reports: Hx Asthma - ON INHALER, USES ABOUT ONCE A MONTH Neurological Medical History: Reports: Hx Migraine. Denies: Hx Cerebrovascular Accident, Hx Seizures Renal/ Medical History: Reports: Hx Ovarian Cysts. Denies: Hx Ectopic , Hx Peritoneal Dialysis, Hx Pelvic Inflammatory Disease GI Medical History: Reports: Hx Gastritis. Denies: Hx Hepatitis, Hx Hiatal Hernia, Hx Ulcer Infectious Medical History: Denies: Hx Hepatitis Past Surgical History: Reports: Hx Gynecologic Surgery - Laparoscopic surgery for diagnosis of endometriosis. Denies: Hx Hysterectomy, Hx Mastectomy, Hx Open Heart Surgery, Hx Pacemaker - Immunizations Immunizations up to date: Yes Hx Diphtheria, Pertussis, Tetanus Vaccination: Yes Physical Exam - Vital signs Vitals: Temp Pulse Resp BP Pulse Ox 98.7 F 74 20 122/73 99 08/23/19 08:51 08/23/19 08:51 08/23/19 08:51 08/23/19 08:51 08/23/19 08:51 - HEENT Visual acuity- Right eye: 20/30 Visual acuity- Left eye: 20/50 Visual acuity- Both eyes: 20/30 Corrective lenses worn: Yes Course - Vital Signs Vital signs: Temp Pulse Resp BP Pulse Ox 98.7 F 74 20 122/73 99 08/23/19 08:51 08/23/19 08:51 08/23/19 08:51 08/23/19 08:51 08/23/19 08:51 Discharge - Discharge Clinical Impression: Conjunctivitis, left eye Qualifiers: Conjunctivitis type: acute Acute conjunctivitis type: unspecified Qualified Code(s): H10.32 - Unspecified acute conjunctivitis, left eye Condition: Stable Disposition: HOME, SELF-CARE Additional Instructions: Use the eyedrops as prescribed. Follow-up with a primary care provider or pellet preparation operator for reevaluation of symptoms in 2 to 3 days call for appointment return for worsening symptoms or condition Prescriptions: Polymyxin B Sulf/Trimethoprim [Polytrim Eye Drops] 1 drop OD Q3H 5 Days #10 ml Referrals: MATTHEW GUZMAN MD [COMMUNITY BASED STAFF] - Follow up as needed
== END 2019-08-23 09:41 | disposition home or self-care (01) ==
LOC: ER 08:46
DX: H10.32 Unspecified acute conjunctivitis, left eye (principal); H57.12 Ocular pain, left eye; Z88.3 Allergy status to other anti-infective agents
CPT/HCPCS: 99283

== ENCOUNTER 2019-08-29 11:55 | Emergency (ER) | payer SELFPAY ==
[2019-08-29 13:09] LABS: ABSOLUTE LYMPHOCYTES (AUTO) 1.9 10^3/uL (0.5-4.7); ABSOLUTE MONOCYTES (AUTO) 0.7 10^3/uL (0.1-1.4); ABSOLUTE NEUT (AUTO) 1.7 10^3/uL (1.7-8.2); EOSINOPHILS % (AUTO) 0.4 % (0-6); LYMPHOCYTES % (AUTO) 42.9 % (13-45); MEAN CORPUSCULAR HEMOGLOBIN 30.1 pg (27.0-33.4); MEAN CORPUSCULAR HGB CONC 33.3 g/dL (32.0-36.0); MEAN CORPUSCULAR VOLUME 90 fl (80-97); MONOCYTES % (AUTO) 16.3 % (3-13); PLATELET COUNT 279 10^3/uL (150-450); RED BLOOD COUNT 3.98 10^6/uL (3.72-5.28); RED CELL DISTRIBUTION WIDTH 13.9 % (11.5-14.0); SEGMENTED NEUTROPHILS % (AUTO) 39.4 % (42-78); TOTAL CELLS COUNTED % (AUTO) 100 %; WHITE BLOOD COUNT 4.4 10^3/uL (4.0-10.5)
[2019-08-29 13:14] LABS: AMORPHOUS SEDIMENT,URINE TRACE /HPF; APPEARANCE,URINE TURBID; BILIRUBIN,URINE NEGATIVE (NEGATIVE); COLOR,URINE AMBER; GLUCOSE, URINE NEGATIVE (NEGATIVE); KETONES,URINE NEGATIVE (NEGATIVE); LEUKOCYTE ESTERASE,URINE NEGATIVE (NEGATIVE); NITRITE,URINE NEGATIVE (NEGATIVE); PROTEIN,URINE 100 mg/dL (NEGATIVE); URINE SPECIFIC GRAVITY 1.039
[2019-08-29 13:27] LABS: ALBUMIN 3.4 g/dL (3.5-5.0); ALKALINE PHOSPHATASE 52 U/L (38-126); ANION GAP 6 (5-19); ASPARTATE AMINO TRANSFERASE 28 U/L (14-36); BILIRUBIN,TOTAL 0.1 mg/dL (0.2-1.3); BLOOD UREA NITROGEN 12 mg/dL (7-20); CALCIUM 8.8 mg/dL (8.4-10.2); CARBON DIOXIDE 24 mmol/L (22-30); CHLORIDE 107 mmol/L (98-107); GLUCOSE 118 mg/dL (75-110); POTASSIUM 3.8 mmol/L (3.6-5.0); TOTAL PROTEIN 6.3 g/dL (6.3-8.2)
--- NOTE | 2019-08-29 13:37 | RADIOLOGY REPORT (SQ) ---
EXAM DESCRIPTION: U/S NON-OB PELVIS TV W/O DOP IMAGES COMPLETED DATE/TIME: 08/29/2019 1:26 pm REASON FOR STUDY: Bilateral lower abdominal/pelvic pain worse COMPARISON: 05/29/2018. TECHNIQUE: Dynamic and static grayscale images acquired of the pelvis via transvaginal approach and recorded on PACS. Additional selected color Doppler and spectral images recorded. LIMITATIONS: None. FINDINGS: UTERUS: Contour normal. No mass. ENDOMETRIAL STRIPE: No focal or generalized thickening. No masses. CERVIX: No nabothian cysts. RIGHT OVARY AND DOPPLER: Normal size. No worrisome masses. Normal arterial vascular flow without evid ence for torsion. LEFT OVARY AND DOPPLER: Normal size. No worrisome masses. Normal arterial vascular flow without evide nce for torsion. FREE FLUID: Mild to moderate free fluid in the pelvic cul-de-sac and right adnexa. OTHER: No other significant finding. MEASUREMENTS: UTERUS: 3.2 x 4.2 x 7.8 cm. ENDOMETRIAL STRIPE: 9 mm. RIGHT OVARY: 1.9 x 2.7 x 3.3 cm. LEFT OVARY: 1.6 x 2.4 x 3.2 cm. IMPRESSION: MILD TO MODERATE FREE FLUID. THIS MAY BE PHYSIOLOGIC. OTHERWISE UNREMARKABLE TRANSVAGI NAL PELVIC ULTRASOUND. TECHNICAL DOCUMENTATION: JOB ID: [id number] 2010 [employer]- All Rights Reserved Rev Reading location - IP/workstation name: [email or web address]
[2019-08-29] MEDS ORDERED: CEFTRIAXONE INJ 250 MG VIAL IM ONE (15:29)
[2019-08-29] MEDS ORDERED: LIDOCAINE 1% INJ (10 MG/ML) 10 ML MDV INJ ONE (15:29)
--- NOTE | 2019-08-29 15:31 | ER Document Report ---
ED GI/ - General Chief Complaint: Abdominal Pain Stated Complaint: ABDOMINAL PAIN/VAGINAL DISCHARGE Time Seen by Provider: 08/29/19 12:38 Primary Care Provider: MOJGAN VASQUEZ MD [Primary Care Provider] - Follow up as needed Mode of Arrival: Ambulatory Information source: Patient Notes: Patient presents reporting left lower pelvic tenderness with vaginal discharge for the past 3 days. Patient denies any urinary symptoms or concern about . TRAVEL OUTSIDE OF THE [place] IN LAST 30 DAYS: No - HPI Patient complains to provider of: Pelvic pain, Vaginal discharge Onset: Other - 3 days Timing/Duration: Persistent Location: Other - Left lower pelvic Menstrual period history: denies: Associated symptoms: denies: Nausea, Urinary hesitancy, Urinary frequency, Urinary retention, Urinary urgency, Vaginal discharge, Vomiting Exacerbated by: Denies Relieved by: Denies Similar symptoms previously: Yes Recently seen / treated by doctor: No - Related Data Allergies/Adverse Reactions: ciprofloxacin [From Cipro] Allergy (Verified 08/23/19 09:00) Hives ciprofloxacin HCl [From Cipro] Allergy (Verified 08/23/19 09:00) Hives metoclopramide HCl [From Reglan] Allergy (Verified 08/23/19 09:00) anxious prochlorperazine edisylate [From Compazine] Allergy (Verified 08/23/19 09:00) prochlorperazine maleate [From Compazine] Allergy (Verified 08/23/19 09:00) Past Medical History - General Information source: Patient - Social History Smoking Status: Never Smoker Frequency of alcohol use: None Drug Abuse: None Lives with: Family Family History: CAD - mother, enlarged heart; father states his cardiac history started after his dialysis, CVA, DM, Hyperlipidemia, Hypertension - mother, Other - p. aunt recently passed from [place] at 45 years old, father with kidney problems Patient has homicidal ideation: No - Past Medical History Cardiac Medical History: Denies: Hx Heart Attack, Hx Hypertension Pulmonary Medical History: Reports: Hx Asthma - ON INHALER, USES ABOUT ONCE A MONTH Neurological Medical History: Reports: Hx Migraine. Denies: Hx Cerebrovascular Accident, Hx Seizures Renal/ Medical History: Reports: Hx Ovarian Cysts, Other - Endometriosis. Denies: Hx Ectopic , Hx Peritoneal Dialysis, Hx Pelvic Inflammatory Disease GI Medical History: Reports: Hx Gastritis. Denies: Hx Hepatitis, Hx Hiatal Hernia, Hx Ulcer Infectious Medical History: Denies: Hx Hepatitis Past Surgical History: Reports: Hx Gynecologic Surgery - Laparoscopic surgery for diagnosis of endometriosis - Immunizations Immunizations up to date: Yes Hx Diphtheria, Pertussis, Tetanus Vaccination: Yes Review of Systems - Review of Systems Constitutional: No symptoms reported. denies: Fever EENT: No symptoms reported Cardiovascular: No symptoms reported. denies: Chest pain Respiratory: No symptoms reported. denies: Cough Gastrointestinal: Abdominal pain. denies: Vomiting, Constipation Genitourinary: No symptoms reported. denies: Dysuria, Flank pain Female Genitourinary: Vaginal discharge. denies: Vaginal bleeding Musculoskeletal: No symptoms reported. denies: Back pain Skin: No symptoms reported Hematologic/Lymphatic: No symptoms reported Neurological/Psychological: No symptoms reported Physical Exam - Vital signs Vitals: Temp Pulse Resp BP Pulse Ox 98.6 F 92 20 113/65 99 08/29/19 12:00 08/29/19 12:00 08/29/19 12:00 08/29/19 12:00 08/29/19 12:00 - General General appearance: Appears well, Alert In distress: None - HEENT Head: Normocephalic, Atraumatic Eyes: Normal Conjunctiva: Normal Nasal: Normal Pharynx: Normal Neck: Normal, Supple. No: Lymphadenopathy - Respiratory Respiratory status: No respiratory distress Chest status: Nontender Breath sounds: Normal. No: Rales, Rhonchi, Stridor, Wheezing Chest palpation: Normal - Cardiovascular Rhythm: Regular Heart sounds: S1 appreciated, S2 appreciated Murmur: No - Abdominal Inspection: Obese Distension: No distension Bowel sounds: Normal Tenderness: Tender - Left lower pelvic Organomegaly: No organomegaly - Genitourinary External exam: Normal Speculum exam: Cervix closed, Vaginal discharge Vaginal bleeding: None Bimanuel exam: Normal. No: Cervical motion tender, Adnexal tenderness Notes: HERBERTH kyle as standby - Back Back: Normal, Nontender. No: CVA tenderness - Extremities General upper extremity: Normal inspection, Normal strength General lower extremity: Normal inspection, Normal strength - Neurological Neuro grossly intact: Yes Cognition: Normal Lily Coma Scale Eye Opening: Spontaneous Deyvi Coma Scale Verbal: Oriented Deyvi Coma Scale Motor: Obeys Commands Lily Coma Scale Total: 15 - Psychological Associated symptoms: Normal affect, Normal mood - Skin Skin Temperature: Warm Skin Moisture: Dry Skin Color: Normal Course - Re-evaluation Re-evalutation: 08/29/19 15:41 Patient declines waiting for wet prep at this time and prefers to be called if which was come back with anything positive. Patient is agreeable with empiric treatment with Rocephin and azithromycin at this time. No concern for TOA, or PID at this time. Patient with vaginal itch discharge worrisome for bacterial vaginosis. - Vital Signs Vital signs: Temp Pulse Resp BP Pulse Ox 98.2 F 65 16 112/75 99 08/29/19 16:05 08/29/19 16:05 08/29/19 16:05 08/29/19 16:05 08/29/19 16:05 - Laboratory Result Diagrams: 08/29/19 12:55 08/29/19 12:55 Laboratory results interpreted by me: 08/29/19 08/29/19 08/29/19 12:55 12:55 12:55 Anderson % (Auto) 16.3 H Seg Neutrophils % 39.4 L Glucose 118 H Total Bilirubin 0.1 L Albumin 3.4 L Urine Protein 100 H Urine Urobilinogen 2.0 H Urine Ascorbic Acid 40 H 08/29/19 20:45 Labs- All tests 24 hr 08/29/19 08/29/19 08/29/19 12:55 12:55 12:55 WBC 4.4 RBC 3.98 Hgb 12.0 Hct 36.0 MCV 90 MCH 30.1 MCHC 33.3 RDW 13.9 Plt Count 279 Lymph % (Auto) 42.9 Anderson % (Auto) 16.3 H Eos % (Auto) 0.4 Baso % (Auto) 1.0 Absolute Neuts (auto) 1.7 Absolute Lymphs (auto) 1.9 Absolute Monos (auto) 0.7 Absolute Eos (auto) 0.0 Absolute Basos (auto) 0.0 Seg Neutrophils % 39.4 L Sodium 137.1 Potassium 3.8 Chloride 107 Carbon Dioxide 24 Anion Gap 6 BUN 12 Creatinine 0.88 Est GFR ( Amer) > 60 Est GFR (MDRD) Non-Af > 60 Glucose 118 H Calcium 8.8 Total Bilirubin 0.1 L Direct Bilirubin 0.0 Neonat Total Bilirubin Not Reportable Neonat Direct Bilirubin Not Reportable Neonat Indirect Bili Not Reportable AST 28 ALT 27 Alkaline Phosphatase 52 Total Protein 6.3 Albumin 3.4 L Beta HCG, Quant < 2.39 Total Beta HCG NEGATIVE Urine Color Urine Appearance Urine pH Ur Specific Eola Urine Protein Urine Glucose (UA) Urine Ketones Urine Blood Urine Nitrite Urine Bilirubin Urine Urobilinogen Ur Leukocyte Esterase Urine WBC (Auto) Urine Bacteria (Auto) Squamous Epi Cells Auto U Non-Squamous Epis Auto Amorphous Sediment Auto Urine Mucus (Auto) Urine Ascorbic Acid Trichomonas (Wet Prep) Vaginal WBC Vaginal RBC Vaginal Yeast Chlamydia DNA (PCR) Cancelled N.gonorrhoeae DNA (PCR) Cancelled 08/29/19 08/29/19 08/29/19 12:55 15:40 15:40 WBC RBC Hgb Hct MCV MCH MCHC RDW Plt Count Lymph % (Auto) Anderson % (Auto) Eos % (Auto) Baso % (Auto) Absolute Neuts (auto) Absolute Lymphs (auto) Absolute Monos (auto) Absolute Eos (auto) Absolute Basos (auto) Seg Neutrophils % Sodium Potassium Chloride Carbon Dioxide Anion Gap BUN Creatinine Est GFR ( Amer) Est GFR (MDRD) Non-Af Glucose Calcium Total Bilirubin Direct Bilirubin Neonat Total Bilirubin Neonat Direct Bilirubin Neonat Indirect Bili AST ALT Alkaline Phosphatase Total Protein Albumin Beta HCG, Quant Total Beta HCG Urine Color MARIE Urine Appearance TURBID Urine pH 5.0 Ur Specific Eola 1.039 Urine Protein 100 H Urine Glucose (UA) NEGATIVE Urine Ketones NEGATIVE Urine Blood NEGATIVE Urine Nitrite NEGATIVE Urine Bilirubin NEGATIVE Urine Urobilinogen 2.0 H Ur Leukocyte Esterase NEGATIVE Urine WBC (Auto) 1 Urine Bacteria (Auto) 1+ Squamous Epi Cells Auto 11 U Non-Squamous Epis Auto 1 Amorphous Sediment Auto TRACE Urine Mucus (Auto) MANY Urine Ascorbic Acid 40 H Trichomonas (Wet Prep) NO TRICHOMONAS SEEN Vaginal WBC NO WBCS SEEN Vaginal RBC NO RBCS SEEN Vaginal Yeast NO YEAST SEEN Chlamydia DNA (PCR) NOT DETECTED N.gonorrhoeae DNA (PCR) NOT DETECTED Discharge - Discharge Clinical Impression: Vaginal discharge, Pelvic pain Condition: Stable Disposition: HOME, SELF-CARE Instructions: Abdominal Pain ([facility]), Azithromycin ([facility]), Metronidazole ([facility]), R ocephin ([facility]), Vaginosis, Bacterial ([facility]) Additional Instructions: Return immediately for any new or worsening symptoms Followup with your primary care provider, call tomorrow to make a followup appointment Cultures are pending, we will call if you need any different treatment Prescriptions: Metronidazole [Flagyl 500 mg Tablet] 500 mg PO BID #14 tablet Naproxen [Naprosyn 250 Nmg Tablet] 1 tab PO BID #14 tablet Referrals: MOJGAN VASQUEZ MD [Primary Care Provider] - Follow up as needed
[2019-08-29] MEDS ORDERED: AZITHROMYCIN 250 MG TABLET PO ONE (15:40)
[2019-08-29 15:50] LABS: RBCS (WET MOUNT) NO RBCS SEEN; T.VAGINALIS (WET MOUNT) NO TRICHOMONAS SEEN; WBCS (WET MOUNT) NO WBCS SEEN; YEAST (WET MOUNT) NO YEAST SEEN
[2019-08-29 16:06] VITALS: BP 112/75
[2019-08-29 17:16] LABS: CHLAM PCR NOT DETECTED (NOT DETECT)
== END 2019-08-29 16:06 | disposition home or self-care (01) ==
LOC: ER 11:55
DX: R10.2 Pelvic and perineal pain (principal); N89.8 Other specified noninflammatory disorders of vagina; L29.9 Pruritus, unspecified; J45.909 Unspecified asthma, uncomplicated; Z87.42 Personal history of other diseases of the female genital tract; Z88.1 Allergy status to other antibiotic agents; Z88.8 Allergy status to other drugs, medicaments and biological substances
CPT/HCPCS: 99284; 96372; 36415; 87086; 87210; 84702; 85025; 87088; 80053; 81001; 87491; 87591; 76830; J0696

== ENCOUNTER 2019-12-20 08:56 | Emergency (ER) | payer SELFPAY ==
--- NOTE | 2019-12-20 10:10 | ER Document Report ---
ED ENT - General Chief Complaint: Sore Throat Stated Complaint: SORE THROAT Primary Care Provider: MOJGAN VASQUEZ MD [Primary Care Provider] - Follow up as needed Notes: CHIEF COMPLAINT: Sore throat for 1 day HPI: 24-year-old female who has history of frequent strep infections presenting for sore throat for 1 day. No fever no nausea no vomiting. No voice change. ROS: See HPI - all other systems were reviewed and are otherwise negative Constitutional: no fever Eyes: no drainage, no blurred vision ENT: no runny nose, + sore throat Cardiovascular: no chest pain Resp: no SOB, no cough GI: no vomiting, no diarrhea, no abdominal pain : no dysuria Integumentary: no rash Allergy: no hives Musculoskeletal: no extremity pain or swelling Neurological: no numbness/tingling, no weakness MEDICATIONS: I agree with the patient medications as charted by the RN. ALLERGIES: I agree with the allergies as charted by the RN. PAST MEDICAL HISTORY/PAST SURGICAL HISTORY: Reviewed and agree as charted by RN. SOCIAL HISTORY: Reviewed and agree as charted by RN. FAMILY HISTORY: No significant familial comorbid conditions directly related to patient complaint EXAM: Reviewed vital signs as charted by RN. CONSTITUTIONAL: Alert and oriented and responds appropriately to questions. Well-appearing; well-nourished HEAD: Normocephalic; atraumatic EYES: PERRL; Conjunctivae clear, sclerae non-icteric ENT: normal nose; no rhinorrhea; moist mucous membranes; very mild pharyngeal erythema noted without exudate, no uvula edema or deviation, no tonsillar hypertrophy, phonation normal NECK: Supple without meningismus; non-tender; positive bilateral anterior cervical lymphadenopathy, no masses CARD: RRR; no murmurs, no clicks, no rubs, no gallops; symmetric distal pulses RESP: Normal chest excursion without splinting or tachypnea; breath sounds clear and equal bilaterally; no wheezes, no rhonchi, no rales, pulse oximetry 99% on room air not hypoxic ABD/GI: Normal bowel sounds; non-distended; soft, non-tender BACK: The back appears normal and is non-tender to palpation, there is no CVA tenderness EXT: Normal ROM in all joints; no cyanosis, no effusions, no edema SKIN: Normal color for age and race; warm; dry; good turgor; no acute lesions noted NEURO: Moves all extremities equally; Motor and sensory function intact PSYCH: The patient's mood and manner are appropriate. Grooming and personal hygiene are appropriate. MDM: 24-year-old female presenting with sore throat for 1 day. Rapid strep is negative. Likely a viral etiology. Will add throat culture, treat symptomatically TRAVEL OUTSIDE OF THE [place] IN LAST 30 DAYS: No - Related Data Allergies/Adverse Reactions: ciprofloxacin [From Cipro] Allergy (Verified 08/23/19 09:00) Hives ciprofloxacin HCl [From Cipro] Allergy (Verified 08/23/19 09:00) Hives metoclopramide HCl [From Reglan] Allergy (Verified 08/23/19 09:00) anxious prochlorperazine edisylate [From Compazine] Allergy (Verified 08/23/19 09:00) prochlorperazine maleate [From Compazine] Allergy (Verified 08/23/19 09:00) Past Medical History - Social History Smoking Status: Never Smoker Chew tobacco use (# tins/day): No Frequency of alcohol use: None Drug Abuse: None Family History: CAD - mother, enlarged heart; father states his cardiac history started after his dialysis, CVA, DM, Hyperlipidemia, Hypertension - mother, Other - p. aunt recently passed from [place] at 45 years old, father with kidney problems - Past Medical History Cardiac Medical History: Denies: Hx Heart Attack, Hx Hypertension Pulmonary Medical History: Reports: Hx Asthma - ON INHALER, USES ABOUT ONCE A MONTH Neurological Medical History: Reports: Hx Migraine. Denies: Hx Cerebrovascular Accident, Hx Seizures Renal/ Medical History: Reports: Hx Ovarian Cysts. Denies: Hx Ectopic , Hx Peritoneal Dialysis, Hx Pelvic Inflammatory Disease GI Medical History: Reports: Hx Gastritis. Denies: Hx Hepatitis, Hx Hiatal Hernia, Hx Ulcer Infectious Medical History: Denies: Hx Hepatitis Past Surgical History: Reports: Hx Gynecologic Surgery - Laparoscopic surgery for diagnosis of endometriosis. Denies: Hx Hysterectomy, Hx Mastectomy, Hx Open Heart Surgery, Hx Pacemaker - Immunizations Immunizations up to date: Yes Hx Diphtheria, Pertussis, Tetanus Vaccination: Yes Physical Exam - Vital signs Vitals: Temp Pulse Resp BP Pulse Ox 98.4 F 77 16 117/90 H 100 12/20/19 09:00 12/20/19 09:00 12/20/19 09:00 12/20/19 09:00 12/20/19 09:00 Course - Vital Signs Vital signs: Temp Pulse Resp BP Pulse Ox 98.4 F 77 16 117/90 H 100 12/20/19 09:00 12/20/19 09:00 12/20/19 09:00 12/20/19 09:00 12/20/19 09:00 Discharge - Discharge Clinical Impression: Viral pharyngitis Condition: Stable Disposition: HOME, SELF-CARE Additional Instructions: 1. Rapid strep test today was negative a throat culture has been added as discussed 2. take Motrin/Tylenol consistently for pain and fever 3. hydrate well at home with fluids/juices 4. recheck with your PCP for further evaluation and treatment, call for appt. 5. return to the ED for any difficulty swallowing or worsening condition 6. warm salt water gargles for throat discomfort 3 times daily Referrals: MOJGAN VASQUEZ MD [Primary Care Provider] - Follow up as needed
[2019-12-20 10:45] VITALS: BP 138/97
== END 2019-12-20 10:44 | disposition home or self-care (01) ==
LOC: ER 08:56
DX: J02.8 Acute pharyngitis due to other specified organisms (principal); B97.89 Other viral agents as the cause of diseases classified elsewhere; J45.909 Unspecified asthma, uncomplicated; Z88.1 Allergy status to other antibiotic agents; Z88.8 Allergy status to other drugs, medicaments and biological substances
CPT/HCPCS: 87070; 87077; 87880; 99282

== ENCOUNTER → 2020-01-10 | Outpatient (CLI) | payer MEDICAID ==
[2020-01-10 10:11] VITALS: BP 126/87
--- NOTE | 2020-01-10 10:11 | ER RDC ASSESSMENT REPORT ---
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 Cystic Fibrosis: No Diabetes: No High Blood Pressure: No Cardiovascular Disease: No Chronic Kidney Disease: No Chronic Liver Disease: No Chronic blood disorder like Sickle Cell Disease: No Weak immune system due to disease or medication: No Neurologic condition that limits movement: No Developmental delay - Moderate to Severe: No Recent (within past 2 weeks) or current : No Morbid Obesity (>100 pounds over ideal weight): No - Objective Temperature: 98.4 F Pulse Rate: 87 Respiratory Rate: 16 Blood Pressure: 126/87 O2 Sat by Pulse Oximetry: 99 Objective: Patient is a well-appearing 24-year-old female, who presents today for COVID-19 screening. Disposition: Home; Selfcare General - General Stated Complaint: COVID-19 screening Mode of Arrival: Ambulatory Information source: Patient Notes: The patient was evaluated during the global COVID-19 pandemic. That diagnosis was suspected/considered upon initial presentation. Their evaluation, treatment, and testing was consistent with current guidelines for patients who present with complaints or symptoms that may be related to COVID-19. Patient reports having close contact exposure to a COVID-19 lab confirmed positive individual. - HPI Patient complains to provider of: Asymptomatic, no complaint Quality of pain: No pain Severity: None Pain Level: Denies Associated symptoms: None Exacerbated by: Denies Relieved by: Denies Similar symptoms previously: No Recently seen / treated by doctor: No - Related Data Allergies/Adverse Reactions: ciprofloxacin [From Cipro] Allergy (Verified 08/23/19 09:00) Hives ciprofloxacin HCl [From Cipro] Allergy (Verified 08/23/19 09:00) Hives metoclopramide HCl [From Reglan] Allergy (Verified 08/23/19 09:00) anxious prochlorperazine edisylate [From Compazine] Allergy (Verified 08/23/19 09:00) prochlorperazine maleate [From Compazine] Allergy (Verified 08/23/19 09:00) Past Medical History - General Information source: Patient - Social History Smoking Status: Never Smoker Cigarette use (# per day): No Chew tobacco use (# tins/day): No Smoking Education Provided: No Frequency of alcohol use: Occasional Drug Abuse: None Occupation: Housekeeping Lives with: Family Family History: CAD - mother, enlarged heart; father states his cardiac history started after his dialysis, CVA, DM, Hyperlipidemia, Hypertension - mother, Other - p. aunt recently passed from [place] at 45 years old, father with kidney problems Patient has suicidal ideation: No Patient has homicidal ideation: No - Past Medical History Cardiac Medical History: Denies: Hx Heart Attack, Hx Hypertension Pulmonary Medical History: Reports: Hx Asthma - ON INHALER, USES ABOUT ONCE A MONTH Neurological Medical History: Reports: Hx Migraine. Denies: Hx Cerebrovascular Accident, Hx Seizures Renal/ Medical History: Reports: Hx Ovarian Cysts. Denies: Hx Ectopic , Hx Peritoneal Dialysis, Hx Pelvic Inflammatory Disease GI Medical History: Reports: Hx Gastritis. Denies: Hx Hepatitis, Hx Hiatal Hernia, Hx Ulcer Infectious Medical History: Denies: Hx Hepatitis Past Surgical History: Reports: Hx Gynecologic Surgery - Laparoscopic surgery for diagnosis of endometriosis. Denies: Hx Hysterectomy, Hx Mastectomy, Hx Open Heart Surgery, Hx Pacemaker Physical Exam - General General appearance: Appears well In distress: None Notes: PHYSICAL EXAMINATION: GENERAL: Well-appearing with No Acute Distress noted. HEAD: Atraumatic, Normocephalic. EYES: Sclera anicteric, Conjunctiva are pink and moist. ENT: Nares patent. Moist mucous membranes. NECK: Normal range of motion, supple without lymphadenopathy. LUNGS: CTAB and equal. No wheezes rales or rhonchi. HEART: Regular rate and rhythm without murmurs. ABDOMEN: Soft, nontender, normal bowel sounds, no guarding. EXTREMITIES: Normal range of motion, no pitting edema. No cyanosis. BACK: No midline or CVA tenderness. No step-off or deformity. NEUROLOGICAL: Cranial nerves grossly intact. Normal speech. Normal gait. PSYCH: Calm, Cooperative, and answers questions appropriately. Normal mood and affect. SKIN: Warm, Dry, Normal color and Turgor, No obvious lesions or rash noted. Diagnostic Results Laboratory Results: Patient notified of NEGATIVE results on Rapid Flu (A & B) and Rapid Strep. Advised Throat Culture and COVID testing are PENDING, and they will be notified of any POSITIVE culture results at a later date/time. Patient has been made aware that is currently taking 3 to 5 days for COVID test results, and that The [facility] Department will call to notify them of a POSITIVE COVID-19 test results and a member of the [facility] team will call to notify them of a NEGATIVE COVID-19 result. Patient aware they will be notified by phone, whether they have a NEGATIVE or POSITIVE COVID-19 result. Patient Education/Counseling Counseling/Education: Patient presents with upper respiratory symptoms worrisome for possible COVID- 19. Patient does not have symptoms worrisome as an emergency such as difficulty breathing, shortness of breath, chest pain, pressure, confusion or cyanosis. Patient appears suitable for discharge. Patient's vital signs are stable and patient is nontoxic in appearance. Good return precautions have been discussed with patient, patient verbalized understanding and is agreeable with discharge plan of care at this time. Patient provided COVID-19 discharge instructions to include: As a person under investigation for COVID-19, the [place] department of Health and Human Services, division of public health advises you to adhere to the following guidance until your test results are reported to you. If your test result is positive, you will receive additional information from your provider and your local health department at that time. Remain at home until you are cleared by the health provider or public health authorities. Keep a log of visitors to your home, notify any visitors to your home of your i solation status. If you plan to move to a new address or leave the [facility], notify the local health department in your County. Call your doctor or seek care if you have an urgent medical need. Before seeking medical care, call ahead to get instructions from the provider before arriving at the medical office clinic or hospital. Notify them that you are being tested for the virus that causes COVID-19 so that arrangements can be made, as necessary, to prevent transmission to others in the healthcare setting. Next, notify the local health department in your county. If a medical emergency arises and you need to call 911, inform dispatch and the first responders that you are being tested for the virus that causes COVID-19. Next, notify the local health department in your county. Guidance for worsening S/SX: For worsening symptoms, patient has been advised to contact their Primary Care Provider, or go to the nearest Emergency Department. RDC Discharge - Discharge Clinical Impression: COVID-19 Screening URI (upper respiratory infection) Qualifiers: URI type: unspecified URI Qualified Code(s): J06.9 - Acute upper respiratory infection, unspecified Condition: Stable Disposition: Home; Selfcare
[2020-01-10 11:28] LABS: A TYPE INFLUENZA AG NEGATIVE (NEGATIVE); B INFLUENZA AG NEGATIVE (NEGATIVE)
== END ==
LOC: RDC 08:46
PROVIDERS: ATTEND Nurse Practitioner Family
DX: J06.9 Acute upper respiratory infection, unspecified (principal); Z20.828 Contact with and (suspected) exposure to other viral communicable diseases; J45.909 Unspecified asthma, uncomplicated; Z88.1 Allergy status to other antibiotic agents; Z88.8 Allergy status to other drugs, medicaments and biological substances
CPT/HCPCS: 87070; 87880; 87635; 87077; 87804; C9803; 99201; 99211

== ENCOUNTER 2020-03-08 10:47 | Emergency (ER) | payer SELFPAY ==
[2020-03-08] MEDS ORDERED: ACETAMINOPHEN 325 MG TABLET PO ONE (11:00)
--- NOTE | 2020-03-08 11:02 | ER Document Report ---
ED Medical Screen (RME) - General Chief Complaint: Lower Abdominal Pain Stated Complaint: LOW ABDOMINAL PAIN Time Seen by Provider: 03/08/20 10:56 Primary Care Provider: MOJGAN VASQUEZ MD [Primary Care Provider] - Follow up as needed Mode of Arrival: Ambulatory Information source: Patient Notes: HPI; 25-year-old female presents to the emergency room complaining of right lower abdomen pain for the past 3 days. Describes it as sharp and aching. Nausea but no vomiting. No urinary symptoms. No fevers. Has been taking ibuprofen without relief. PE: Alert and oriented x3. Lungs: Clear to auscultation without rales, rhonchi, wheezes. Heart: Tachycardic without murmurs, rubs, gallops. I have greeted and performed a rapid initial assessment of this patient. A comprehensive ED assessment and evaluation of the patient, analysis of test results and completion of the medical decision making process will be conducted by additional ED providers. I have specifically instructed the patient or family members with the patient to immediately return to any nursing staff should anything change in the patient's condition or with their chief complaint. TRAVEL OUTSIDE OF THE [place] IN LAST 30 DAYS: No - Related Data Allergies/Adverse Reactions: ciprofloxacin [From Cipro] Allergy (Verified 03/08/20 10:57) Hives ciprofloxacin HCl [From Cipro] Allergy (Verified 03/08/20 10:57) Hives metoclopramide HCl [From Reglan] Allergy (Verified 03/08/20 10:57) anxious prochlorperazine edisylate [From Compazine] Allergy (Verified 03/08/20 10:57) prochlorperazine maleate [From Compazine] Allergy (Verified 03/08/20 10:57) Past Medical History - Past Medical History Cardiac Medical History: Denies: Hx Heart Attack, Hx Hypertension Pulmonary Medical History: Reports: Hx Asthma - ON INHALER, USES ABOUT ONCE A MONTH Neurological Medical History: Reports: Hx Migraine. Denies: Hx Cerebrovascular Accident, Hx Seizures Renal/ Medical History: Reports: Hx Ovarian Cysts. Denies: Hx Ectopic , Hx Peritoneal Dialysis, Hx Pelvic Inflammatory Disease GI Medical History: Reports: Hx Gastritis. Denies: Hx Hepatitis, Hx Hiatal Hernia, Hx Ulcer Infectious Medical History: Denies: Hx Hepatitis Past Surgical History: Reports: Hx Gynecologic Surgery - Laparoscopic surgery for diagnosis of endometriosis. Denies: Hx Hysterectomy, Hx Mastectomy, Hx Open Heart Surgery, Hx Pacemaker - Immunizations Immunizations up to date: Yes Hx Diphtheria, Pertussis, Tetanus Vaccination: Yes Doctor's Discharge - Discharge Referrals: MOJGAN VASQUEZ MD [Primary Care Provider] - Follow up as needed
[2020-03-08 11:35] LABS: ABSOLUTE BASOPHILS # (AUTO) 0.1 10^3/uL (0.0-0.2); ABSOLUTE LYMPHOCYTES (AUTO) 2.7 10^3/uL (0.5-4.7); ABSOLUTE MONOCYTES (AUTO) 0.6 10^3/uL (0.1-1.4); ABSOLUTE NEUT (AUTO) 4.3 10^3/uL (1.7-8.2); EOSINOPHILS % (AUTO) 0.6 % (0-6); HEMATOCRIT 36.2 % (36.0-47.0); HEMOGLOBIN 12.2 g/dL (12.0-15.5); MEAN CORPUSCULAR HEMOGLOBIN 29.1 pg (27.0-33.4); MEAN CORPUSCULAR HGB CONC 33.6 g/dL (32.0-36.0); MEAN CORPUSCULAR VOLUME 87 fl (80-97); MONOCYTES % (AUTO) 8.1 % (3-13); PLATELET COUNT 342 10^3/uL (150-450); RED BLOOD COUNT 4.18 10^6/uL (3.72-5.28); RED CELL DISTRIBUTION WIDTH 14.3 % (11.5-14.0); SEGMENTED NEUTROPHILS % (AUTO) 55.3 % (42-78); TOTAL CELLS COUNTED % (AUTO) 100 %; WHITE BLOOD COUNT 7.9 10^3/uL (4.0-10.5)
[2020-03-08 11:39] LABS: APPEARANCE,URINE SLIGHTLY-CLOUDY; BILIRUBIN,URINE NEGATIVE (NEGATIVE); COLOR,URINE YELLOW; GLUCOSE, URINE NEGATIVE (NEGATIVE); KETONES,URINE TRACE mg/dL (NEGATIVE); LEUKOCYTE ESTERASE,URINE TRACE (NEGATIVE); NITRITE,URINE NEGATIVE (NEGATIVE); PROTEIN,URINE 30 mg/dL (NEGATIVE); URINE SPECIFIC GRAVITY 1.024; UROBILINOGEN,URINE NEGATIVE mg/dL (<2.0)
[2020-03-08 11:41] LABS: ALBUMIN 4.4 g/dL (3.5-5.0); ALKALINE PHOSPHATASE 58 U/L (38-126); ANION GAP 8 (5-19); ASPARTATE AMINO TRANSFERASE 38 U/L (14-36); BILIRUBIN,DIRECT 0.2 mg/dL (0.0-0.4); BILIRUBIN,TOTAL 0.5 mg/dL (0.2-1.3); BLOOD UREA NITROGEN 13 mg/dL (7-20); CALCIUM 9.6 mg/dL (8.4-10.2); CARBON DIOXIDE 29 mmol/L (22-30); CHLORIDE 103 mmol/L (98-107); GLUCOSE 85 mg/dL (75-110); POTASSIUM 4.2 mmol/L (3.6-5.0); TOTAL PROTEIN 7.7 g/dL (6.3-8.2)
[2020-03-08] MEDS ORDERED: NORMAL SALINE 1000 ML 1,000 ML IV ONE (12:15)
[2020-03-08] MEDS ORDERED: ONDANSETRON HCL INJ/PF 4 MG/2 ML SDV IV ONE (12:49)
[2020-03-08] MEDS ORDERED: MORPHINE SULFATE 10 MG/ML INJ IV ONE (12:49)
--- NOTE | 2020-03-08 16:06 | RADIOLOGY REPORT (SQ) ---
EXAM DESCRIPTION: CT ABD/PELVIS WITH IV ORAL<Procedure Description>CT ABD/PELVIS WITH IV ORAL IMAGES COMPLETED DATE/TIME: 03/08/2020 3:13 pm<Completed Time>03/08/2020 3:13 pm REASON FOR STUDY: abd pain rlq<Reason For Exam>abd pain rlq <ICD10 Code1> <ICD10 Code2> <ICD10 Code3 > <ADM DX> COMPARISON: 08/14/2014 TECHNIQUE: CT scan of the abdomen and pelvis performed using helical scanning technique with dynamic intravenous contrast injection and oral contrast. Images reviewed with lung, soft tissue, and bone w indows. Reconstructed coronal and sagittal MPR images reviewed. Delayed images for evaluation of the urinary system also acquired. All images stored on PACS. All CT scanners at this facility use dose modulation, iterative reconstruction, and/or weight based d osing when appropriate to reduce radiation dose to as low as reasonably achievable (ALARA). [facility]: Dose Right [facility]: CareDose [facility]: Dose Right [facility]: Teradose 4D [facility]: MyTrainer CONTRAST TYPE AND DOSE: contrast/concentration: Isovue 350.00 mmol/ml; Total Contrast Delivered: 100 .0 ml; Total Saline Delivered: 58.0 ml<[facility] Contrast>contrast/concentration: Isovue 350.00 mmol/ml; To gregory Contrast Delivered: 100.0 ml; Total Saline Delivered: 58.0 ml RENAL FUNCTION: None required. The patient is less than 50 years old. RADIATION DOSE: CT Rad equipment meets quality standard of care and radiation dose reduction techniq ues were employed. CTDIvol: 17.6 - 20.9 mGy. DLP: 2033 mGy-cm.<RADIATION DOSE>CT Rad equipment meets quality standard of care and radiation dose reduction techniques were employed. CTDIvol: 17.6 - 20.9 mGy. DLP: 2033 mGy-cm[facility] m[facility]>. LIMITATIONS: None. FINDINGS: LOWER CHEST: No significant findings. LIVER: Normal size. No enhancing masses. No dilated ducts. SPLEEN: Normal size. No focal lesions. PANCREAS: No masses identified. No significant calcifications. No adjacent inflammation or peripancre atic fluid collections. Pancreatic duct not dilated. GALLBLADDER: No calcified stones. No inflammatory changes to suggest cholecystitis. ADRENAL GLANDS: No significant masses. RIGHT KIDNEY AND URETER: No cysts identified. No solid masses identified. No calcified stones. No hyd ronephrosis or hydroureter. LEFT KIDNEY AND URETER: No cysts identified. No solid masses identified. No calcified stones. No hydr onephrosis or hydroureter. AORTA AND VESSELS: No aneurysm. No dissection. Renal arteries, SMA, celiac without significant stenos is. RETROPERITONEUM: No bulky retroperitoneal adenopathy. BOWEL AND PERITONEAL CAVITY: No obstruction or inflammatory changes. No free fluid. APPENDIX: Normal. PELVIS: No mass. No free fluid. Unremarkable bladder. ABDOMINAL WALL: No masses. No hernias. BONES: No acute findings. OTHER: No other significant finding. IMPRESSION: NO ACUTE FINDINGS IN THE ABDOMEN OR PELVIS ON CT SCAN WITH IV CONTRAST. Normal appendix . TECHNICAL DOCUMENTATION: JOB ID: [id number]<Job ID>[id number] [facility] Quality ID # [id number]: Final reports with documentation of one or more dose reduction techniques (e.g., Au tomated exposure control, adjustment of the mA and/or kV according to patient size, use of iterative reconstruction technique) 2010 [employer]- All Rights Reserved Reading location - IP/workstation name: [email or web address]
--- NOTE | 2020-03-08 16:22 | ER Document Report ---
Entered by ESTUARDO MORENO SCRIBE 03/08/20 1127 Acting as scribe for:ROSELINE EASON MD ED GI/ - General Chief Complaint: Lower Abdominal Pain Stated Complaint: LOW ABDOMINAL PAIN Time Seen by Provider: 03/08/20 10:56 Primary Care Provider: MOJGAN VASQUEZ MD [Primary Care Provider] - Follow up as needed Mode of Arrival: Ambulatory Information source: Patient Notes: This 25 year old female patient presents to the ED today with complaints of RLQ abdominal pain that started x3 days ago. Patient reports that the pain is constant, sharp, and worse with movement and bending over. She reports a history of endometriosis, but states that this pain feels different. She notes nausea without emesis yesterday, but none today. She has taking Ibuprofen and Tylenol for the pain. Denies constipation, diarrhea, pain/burning with urination, fever, chills, or vaginal bleeding. Last bowel movement was normal yesterday. She does not some white/milky vaginal discharge, but states that she is not concerned about it. Last menstrual period was on 02/01/2020. TRAVEL OUTSIDE OF THE [place] IN LAST 30 DAYS: No - Related Data Allergies/Adverse Reactions: ciprofloxacin [From Cipro] Allergy (Verified 03/08/20 10:57) Hives ciprofloxacin HCl [From Cipro] Allergy (Verified 03/08/20 10:57) Hives metoclopramide HCl [From Reglan] Allergy (Verified 03/08/20 10:57) anxious prochlorperazine edisylate [From Compazine] Allergy (Verified 03/08/20 10:57) prochlorperazine maleate [From Compazine] Allergy (Verified 03/08/20 10:57) Home Medications: denies Past Medical History - General Information source: Patient, [facility] Records - Social History Smoking Status: Never Smoker Cigarette use (# per day): No Chew tobacco use (# tins/day): No Frequency of alcohol use: None Drug Abuse: None Family History: Reviewed & Not Pertinent, CAD - mother, enlarged heart; father states his cardiac history started after his dialysis, CVA, DM, Hyperlipidemia, Hypertension - mother, Other - p. aunt recently passed from [place] at 45 years old, father with kidney problems Patient has homicidal ideation: No Pulmonary Medical History: Reports: Hx Asthma - ON INHALER, USES ABOUT ONCE A MONTH Neurological Medical History: Reports: Hx Migraine Renal/ Medical History: Reports: Hx Ovarian Cysts GI Medical History: Reports: Hx Gastritis Past Surgical History: Reports: Hx Gynecologic Surgery - Laparoscopic surgery for diagnosis of endometriosis - Immunizations Immunizations up to date: Yes Hx Diphtheria, Pertussis, Tetanus Vaccination: Yes Review of Systems - Review of Systems Constitutional: See HPI. denies: Chills, Fever EENT: No symptoms reported Cardiovascular: No symptoms reported Respiratory: No symptoms reported Gastrointestinal: See HPI, Abdominal pain, Nausea. denies: Diarrhea, Vomiting, Constipation Genitourinary: No symptoms reported Female Genitourinary: See HPI, Last menstrual period - 02/01/2020, Vaginal discharge. denies: Vaginal bleeding Musculoskeletal: No symptoms reported Skin: No symptoms reported Hematologic/Lymphatic: No symptoms reported Neurological/Psychological: No symptoms reported -: Yes All other systems reviewed and negative Physical Exam - Vital signs Vitals: Temp 98.4 F 03/08/20 10:58 - General General appearance: Alert In distress: None - HEENT Head: Normocephalic, Atraumatic Eyes: Normal Extraocular movements intact: Yes Pupils: PERRL Neck: Normal, Supple - Respiratory Respiratory status: No respiratory distress Chest status: Nontender Breath sounds: Normal Chest palpation: Normal - Cardiovascular Rhythm: Regular Heart sounds: Normal auscultation Murmur: No - Abdominal Inspection: Obese Distension: No distension Bowel sounds: Normal Tenderness: Tender - RLQ tenderness to palpation. No: Guarding, Rebound Organomegaly: No organomegaly - Back Back: Normal, Nontender - Extremities General upper extremity: Normal inspection General lower extremity: Normal inspection. No: Edema - Neurological Neuro grossly intact: Yes Orientation: AAOx4 [place] Coma Scale Eye Opening: Spontaneous [place]yvi Coma Scale Verbal: Oriented [place] Coma Scale Motor: Obeys Commands [place] Coma Scale Total: 15 - Psychological Associated symptoms: Normal affect, Normal mood - Skin Skin Temperature: Warm Skin Moisture: Dry Skin Color: Normal Course - Re-evaluation Re-evalutation: 03/08/20 16:19 Patient reports her abdominal pain is resolved and she is feeling better and is asking to eat some crackers at this time. - Vital Signs Vital signs: Temp Pulse Resp BP Pulse Ox 98 F 80 14 117/79 100 03/08/20 14:38 03/08/20 14:38 03/08/20 14:38 03/08/20 14:38 03/08/20 14:38 03/08/20 16:19 Vital signs stable - Laboratory Results Result Diagrams: 03/08/20 11:05 03/08/20 11:05 Laboratory Results Interpreted: 03/08/20 03/08/20 03/08/20 11:05 11:05 11:05 RDW 14.3 H AST 38 H ALT 45 H Urine Protein 30 H Urine Ketones TRACE H Ur Leukocyte Esterase TRACE H Urine Ascorbic Acid 20 H Labs- Entire Visit 03/08/20 03/08/20 03/08/20 11:05 11:05 11:05 WBC 7.9 RBC 4.18 Hgb 12.2 Hct 36.2 MCV 87 MCH 29.1 MCHC 33.6 RDW 14.3 H Plt Count 342 Lymph % (Auto) 35.0 [place] % (Auto) 8.1 Eos % (Auto) 0.6 Baso % (Auto) 1.0 Absolute Neuts (auto) 4.3 Absolute Lymphs (auto) 2.7 Absolute Monos (auto) 0.6 Absolute Eos (auto) 0.0 Absolute Basos (auto) 0.1 Seg Neutrophils % 55.3 Sodium 140.3 Potassium 4.2 Chloride 103 Carbon Dioxide 29 Anion Gap 8 BUN 13 Creatinine 0.61 Est GFR ( Amer) > 60 Est GFR (MDRD) Non-Af > 60 Glucose 85 Calcium 9.6 Total Bilirubin 0.5 Direct Bilirubin 0.2 Neonat Total Bilirubin Not Reportable Neonat Direct Bilirubin Not Reportable Neonat Indirect Bili Not Reportable AST 38 H ALT 45 H Alkaline Phosphatase 58 Total Protein 7.7 Albumin 4.4 Lipase 47.4 Serum HCG, Qual NEGATIVE Urine Color Urine Appearance Urine pH Ur Specific [place] Urine Protein Urine Glucose (UA) Urine Ketones Urine Blood Urine Nitrite Urine Bilirubin Urine Urobilinogen Ur Leukocyte Esterase Urine WBC (Auto) Urine RBC (Auto) Squamous Epi Cells Auto Urine Mucus (Auto) Urine Ascorbic Acid 03/08/20 11:05 WBC RBC Hgb Hct MCV MCH MCHC RDW Plt Count Lymph % (Auto) [place] % (Auto) Eos % (Auto) Baso % (Auto) Absolute Neuts (auto) Absolute Lymphs (auto) Absolute Monos (auto) Absolute Eos (auto) Absolute Basos (auto) Seg Neutrophils % Sodium Potassium Chloride Carbon Dioxide Anion Gap BUN Creatinine Est GFR ( Amer) Est GFR (MDRD) Non-Af Glucose Calcium Total Bilirubin Direct Bilirubin Neonat Total Bilirubin Neonat Direct Bilirubin Neonat Indirect Bili AST ALT Alkaline Phosphatase Total Protein Albumin Lipase Serum HCG, Qual Urine Color YELLOW Urine Appearance SLIGHTLY-CLOUDY Urine pH 7.0 Ur Specific [place] 1.024 Urine Protein 30 H Urine Glucose (UA) NEGATIVE Urine Ketones TRACE H Urine Blood NEGATIVE Urine Nitrite NEGATIVE Urine Bilirubin NEGATIVE Urine Urobilinogen NEGATIVE Ur Leukocyte Esterase TRACE H Urine WBC (Auto) 5 Urine RBC (Auto) 3 Squamous Epi Cells Auto 9 Urine Mucus (Auto) RARE Urine Ascorbic Acid 20 H 03/08/20 16:20 No critical labs found. Critical Laboratory Results Reviewed: No Critical Results - Radiology Results Radiology Results Interpreted: 03/08/20 16:11 Abdomen/Pelvis CT 03/08/20 15:00 IMPRESSION: NO ACUTE FINDINGS IN THE ABDOMEN OR PELVIS ON CT SCAN WITH IV CONTRAST. Normal appendix. 03/08/20 16:[address] with contrast IV and oral shows no acute process patient has a normal appendix. Critical Radiology Results Reviewed: No Critical Results Discharge - Discharge Clinical Impression: Right lower quadrant abdominal pain Condition: Stable Disposition: HOME, SELF-CARE Instructions: Abdominal Pain ([facility]) Additional Instructions: Abdominal Pain There are many causes of abdominal pain. Pain can mean a serious problem requiring surgery (such as appendicitis). It can also be an innocent problem that goes away on its own (such as a viral infection). Often, time must pass to determine the cause of pain. The physician does not feel that hospitalization is necessary, at present. Things may change within the next 24 hours. Call the doctor or come back for re- examination if any problems occur, such as: (1) Pain that becomes more severe, steady, or becomes concentrated in one specific area. Also, pain that is more severe with movement or coughing. (2) Vomiting that persists or becomes more frequent. (3) Blood in the vomitus, urine, or bowel movements. Blood in the stool may have a tarry or black appearance. (4) Shaking chills or fever greater than 100 degrees F. (5) The abdomen becomes more distended or swollen. (6) Bowel movements cease. (7) Failure to improve as expected. No evidence for appendicitis was found today and a normal CT with oral and IV contrast abdomen and pelvis. Recommend you take some ibuprofen [id number] as needed follow-up with your primary care provider return to the emergency department if there is any further complications. Referrals: MOJGAN VASQUEZ MD [Primary Care Provider] - Follow up as needed I personally performed the services described in the documentation, reviewed and edited the documentation which was dictated to the scribe in my presence, and it accurately records my words and actions.
[2020-03-08 16:49] VITALS: BP 130/83
--- OUTSIDE RECORDS SUMMARY | 2020-03-10 10:43 | XMS REPORT ---
:1995 [facility] [place] [facility] [place] [address] [place] [id number] Care Team Providers Name Role Phone Unavailable Unavailable Unavailable Allergies, Adverse Reactions, Alerts This patient has no known allergies or adverse reactions. Medications This patient has no known medications. Problems Condition Condition Condition Status Onset Resolution Last Treatin g Comments Name Details Category Date Date Treatment Clinician Date Not on file Not on file [id number] Procedures This patient has no known procedures. Results Test Description Test Time Test Comments Text Results Atomic Results Result Comments SARS-CoV-2 RNA Resp Ql IJEOMA+probe 2020-01-11 00:00:00 Test Item Value Reference Range Comments SARS-CoV-2 RNA Resp Ql IJEOMA+probe [facility] ID: (test code = [id number]) [id number] Encounters Start End Encounter Admission Attending Care Care Encounter ID Date/Time Date/Time Type Type Clinicians Facility Department 2019-09-01 2019-09-01 Outpatient [facility] [id number] 00:00:00 00:00:00 Plan of Treatment Planned Activity Planned Date Details Comments Future Scheduled Test [code = ] Future Scheduled Test [code = ] Social History This patient has no known social history. Vital Signs This patient has no known vital signs.
== END 2020-03-08 16:46 | disposition home or self-care (01) ==
LOC: ER 10:47
DX: R10.31 Right lower quadrant pain (principal); R11.0 Nausea; N89.8 Other specified noninflammatory disorders of vagina; Z88.1 Allergy status to other antibiotic agents; Z88.8 Allergy status to other drugs, medicaments and biological substances
CPT/HCPCS: 99285; 96361; 96374; 96375; 36415; 83690; 84703; 85025; 80053; 81001; 74177; J2270; J2405; J7030